=== PATIENT | female | born 1950 | race Caucasian/White ===

== ENCOUNTER 2023-08-29 08:41 | Outpatient (OUT) | payer MEDICARE, SELFPAY ==
--- NOTE | 2023-08-29 08:49 | MM_ITS ---
Patient Name VIRY BAILEY MR# Age Sex Date Time [id number] F 08/29/2023 08:55 At the Request Of DR Jesse Still . RADIOLOGY REPORT PROCEDURE: MM TOMOSYNTHESIS SCREENING BI COMPARISON: MG MAMM SCREEN 3D [facility] CAD, 08/10/2021. MG MAMM SCREEN [facility] W CAD, 09/10/2019. MG MAMM SCREEN [facility] W CAD, 08/26/2018. MG MAMM [facility] SCRN W CAD DIG, 07/20/2014. INDICATIONS: Screening Calculator Name NCI Breast Cancer Risk Assessment Tool 5 Year Breast Cancer Risk 2.10% Lifetime Breast Cancer Risk 6.20% Personal Breast Cancer No Personal Ovarian Cancer No Treatments None Family Cancers None LOCATION: [facility] BREAST COMPOSITION: Scattered areas fibroglandular density. FINDINGS: DIAGNOSTIC CATEGORY 2--BENIGN FINDING: RIGHT BREAST: No significant suspicious finding. Scattered benign-appearing calcifications are present. No significant change has occurred. LEFT BREAST: No significant suspicious finding. Scattered benign-appearing calcifications are present. Scattered benign-appearing nodules are present. No significant change has occurred. RECOMMENDATIONS: ROUTINE MAMMOGRAM AND CLINICAL EVALUATION IN 12 MONTHS. PLEASE NOTE: A NORMAL MAMMOGRAM DOES NOT EXCLUDE THE POSSIBILITY OF BREAST CANCER. A CLINICALLY SUSPICIOUS PALPABLE LUMP SHOULD BE BIOPSIED. Dictated by: Micha Dye M.D. on 08/29/2023 at 12:36 Approved by: Micha Dye M.D. on 08/29/2023 at 12:40
== END 2023-08-29 08:42 | disposition home or self-care (01) ==
LOC: MAMMO 08:41
PROVIDERS: PCP Family Medicine; Visit Provider Family Medicine
DX: Z12.31 Encounter for screening mammogram for malignant neoplasm of breast (principal)
CPT/HCPCS: 77063; 77067

== ENCOUNTER 2024-02-27 08:54 | Outpatient (OUT) | payer MEDICARE, SELFPAY ==
--- OUTSIDE RECORDS SUMMARY | 2024-02-27 09:14 | XMS_ITS | CCD ---
Author Organization [facility] Care Team Providers Care Dress Marker Name Role Phone Jesse Deluca Primary Care Provider [phone] JESSE DELUCA Referring Unavailabl e NADERER, JESSE NURONY Primary Care Unavailabl e NADERER, JESSE TRAN Referring Unavailabl e NADERER, JESSE NURONY Primary Care Unavailabl e NADERER, JESSE NURONY Referring Unavailabl e NADERER, JESSE MARC Primary Care Unavailabl e NADERER, JESSE NURONY Referring Unavailabl e NADERER, JESSE MARC Primary Care Unavailabl e NADERER, JESSE NURONY Referring Unavailabl e NADERER, JESSE MARC Primary Care Unavailabl e NADERER, JESSE NURONY Referring Unavailabl e NADERER, JESSE MARC Primary Care Unavailabl e NADERER, JESSE NURONY Referring Unavailabl e NADERER, JESSE MARC Primary Care Unavailabl e NADERER, JESSE NURONY Referring Unavailabl e NADERER, JESSE MARC Primary Care Unavailabl e NADERER, JESSE NURONY Referring Unavailabl e NADERER, JESSE MARC Primary Care Unavailabl e NADERER, JESSE NURONY Referring Unavailabl e NADERER, JESSE MARC Primary Care Unavailabl e NADERER, JESSE NURONY Referring Unavailabl e NADERER, JESSE MARC Primary Care Unavailabl e Woody, Marla Unavailable MD Jesse Deluac Primary Care Provider MD Aki Garcia Attending Provider Aki Garcia Unavailable MD Jesse Deluca Attending Provider MD Jesse Deluca Primary Care Provider MD Aki Garcia Attending Provider MD Jesse Deluca Attending Provider [phone] MD Aki Garcia Admit Provider YOSI, DR JESSE Roland Consulting Unavailable NADERER, DR JESSE Roland Primary Care Unavailable NADERER, DR JESSE Roland Admitting Unavailable NADERER, DR JESSE Roland Attending Unavailable NADERER, DR JESSE Roland Primary Care Unavailable NADERER, DR JESSE Roland Admitting Unavailable NADERER, DR JESSE Roland Attending Unavailable NADEREMiguel, DR JESSE Roland Consulting Unavailable MD Jesse Deluca Primary Care Provider MD Aki Garcia Attending Provider [phone] MD Aki Garcia Admit Provider MD Jesse Deluca Primary Care Provider [phone] MD Aki Garcia Attending Provider MD Aki Garcia Admit Provider MD Jesse Deluca Primary Care Provider MD Aki Garcia Attending Provider [phone] Jesse Deluca Primary Care Unavailable Aki Garcia Admitting Unavailable Aki Garcia Attending Unavailable Aki Garcia Admitting Unavailable Aki Garcia Attending Unavailable Jesse Deluca Primary Care Unavailable Aki Garcia Admitting Unavailable Aki Garcia Attending Unavailable Jesse Deluca Primary Care Unavailable Aki Garcia Attending Unavailable Aki Garcia Admitting Unavailable Jesse Deluca Primary Care Unavailable MD Jsese Deluca Primary Care Provider MD Aki Garcia Attending Provider [phone] JESSE DELUCA Attending Unavailable Medications Current Medications Medication Drug Class(es) Dates Sig (Normalized) Sig (Original) 8 hr acetaminophen 650 mg extended release oral tablet (8 sources) Start: 07-31-2022 take 1300 mg by mouth once daily in the morning Acetaminophen Active 1300 MG PO Every morning July 31, 2022 12:00am Start: 07-31-2022 Acetaminophen (Tylenol Arthritis) 650 mg Tablet Extended Release Active 1300 MG PO Every morning July 30, 2022 11:00pm [id number] 200 actuat albuterol 0.09 mg/actuat metered dose inhaler (4 sources) beta2-Adrenergic Agonist Start: 01-23-2022 take 2 puff(s) by inhalation every four to six hours as needed Albuterol Sulfate HFA 108 (90 Base) MCG/ACT 2 puffs as needed Inhalation every 4-6 hours for 14 days Jan, Active Start: 01-23-2022 take 2 puff(s) by in halation every four to six hours as needed Albuterol Sulfate HFA 108 (90 Base) MCG/ACT 2 puffs as needed Inhalation every 4-6 hours for 14 days Jan, Active atorvastatin 80 mg oral tablet (16 sources) HMG-CoA Reductase Inhibitor Start: 07-31-2022 take 80 mg by mouth once daily in the evening Atorvastatin Active 80 MG PO Every evening July 31, 2022 12:00am cholecalciferol 0.025 mg chewable tablet (1 source) Vitamin D Start: 01-17-2024 take 1 tablet by mouth once daily Cholecalciferol (Vitamin D3) (Vitamin D3) 25 mcg (1,000 unit) tablet,chewable Active 25 MCG PO Daily January 17, 2024 12:00am dextromethorphan hydrobromide 1.5 mg/ml / pyrilamine maleate 1.5 mg/ml oral solution (4 sources) Uncompetitive M-fvycpz-D-asparta te Receptor Antagonist, Sigma-1 Agonist Start: 01-23-2022 take 10 mL by mouth every eight hours Wood DM 7.5-7.5 MG/5ML 10 mL Orally every 8 hours for 5 days Jan, Active diphenhydrAMINE hydrochloride 25 mg oral capsule (10 sources) Histamine-1 Receptor Antagonist Start: 12-12-2022 take 1 capsule by mouth every twenty-four hours diphenhydrAMINE HCl 25 MG 1 capsule at bedtime as needed Orally Once a day for 30 day(s) Nov, Active Start: 12-12-2022 End: 01-17-2024 take 25 mg by mouth once daily in the morning Diphenhydramine Hcl Discontinued 25 MG PO Every morning December 12, 2022 1:00am January 17, 2024 10:33am lisinopril 10 mg oral tablet (10 sources) Angiotensin Converting Enzyme Inhibitor Start: 12-12-2022 take 10 mg by mouth once daily in the morning Lisinopril Active 10 MG PO Every morning December 12, 2022 1:00am take 0.5 tablet by mouth once da caio Lisinopril 20 MG TAKE 1/2 TABLET BY MOUTH ONCE DAILY Oral for 30 Days Active melatonin 10 mg oral capsule (12 sources) Start: 12-12-2022 Melatonin 10 M G as directed Orally Nov, Active Start: 12-12-2022 Melatonin 10 M G as directed Orally Nov, Active Start: 07-31-2022 take 10 mg by mouth at bedtime Melatonin Active 10 MG PO Bedtime July 31, 2022 12:00am meloxicam 7.5 mg oral tablet (13 sources) Nonsteroidal Anti-inflammatory Drug Start: 01-17-2024 Meloxicam Active 7.5 MG PO January 17, 2024 12:00am Start: 01-21-2015 End: 12-12-2022 take 7.5 mg by mouth once daily Meloxicam Discontinued 7.5 MG PO Daily July 31, 2022 12:00am December 12, 2022 2:45pm methylPREDNISolone 4 mg oral tablet (4 sources) Corticosteroid Start: 01-23-2022 methylPREDNISo lone 4 MG as directed Orally for daily dose take half with breakfast, half with dinner for 6 days Jan, Active Multivitamin preparation (12 sources) Start: 12-12-2022 Multivitamin 2 1 Nov, 2022 Active Start: 07-31-2022 take 1 tablet by fannie th once daily Multivitamin Active 1 TAB PO Daily July 31, 2022 12:00am Start: 07-31-2022 take 1 tablet by fannie th once daily Multivitamin Active 1 TAB PO Daily July 30, 2022 11:00pm naproxen sodium 220 mg oral tablet (4 sources) Nonsteroidal Anti-inflammatory Drug take 1 tablet by mouth every twelve hours Aleve 220 MG 1 tablet Orally bid Active omeprazole 40 mg delayed release oral capsule (16 sources) Proton Pump Inhibitor Start: 07-31-20 take 40 mg by mouth once daily Omeprazole Active 40 MG PO Daily July 31, 2022 12:00am take 1 capsule by mouth once cory ly Omeprazole 20 MG TAKE ONE CAPSULE BY MOUTH EVERY DAY Oral for 90 Active Vitamin D3 Gummy (6 sources) Start: 12-12-2022 take 2000 [IU] by mo [facility] once daily Vitamin D3 Gummy Active 2000 UNITS PO Daily December 12, 2022 1:00am Start: 12-12-2022 take 2000 [IU] by mo [facility] once daily Vitamin D3 Gummy Active 2000 UNITS PO Daily December 12, 2022 12:00am Completed/Discontinued Medications Medication Drug Class(es) Dates Sig (Normalized) Sig (Original) aspirin 81 mg chewable tablet (12 sources) Platelet Aggregation Inhibitor, Nonsteroidal Anti-inflammatory Drug Start: 07-31-2022 End: 12-12-2022 take 81 mg by mouth once daily Aspirin Discontinued 81 MG PO Daily July 31, 2022 12:00am December 12, 2022 2:43pm take 1 tablet by fannie every twenty-four hours Aspirin Adult Low Strength 81 MG 1 tablet Orally Once a day Active Calcium Carbonate / vitamin D3 (8 sources) Start: 07-31-2022 End: 12-12-2022 take 1 tablet by mouth once daily Calcium Carbonate-Vitamin D3 Discontinued 1 TAB PO Daily July 31, 2022 12:00am December 12, 2022 2:46pm Start: 07-31-2022 End: 12-12-2022 take 1 tablet by mouth once daily Calcium Carbonate-Vitamin D3 Discontinued 1 TAB PO Daily July 30, 2022 11:00pm December 12, 2022 1:46pm Start: 07-31-2022 take 1 tablet by fannie once daily Calcium Carbonate-Vitamin D3 Active 1 TAB PO Daily July 30, 2022 11:00pm Elderberry Fruit And Flower (8 sources) Start: 07-31-2022 End: 12-12-2022 take 2 capsules by mouth once daily Elderberry Fruit And Flower Discontinued 2 CAP PO Daily July 31, 2022 12:00am December 12, 2022 2:46pm Start: 07-31-2022 End: 12-12-2022 take 2 capsules by mouth once daily Elderberry Fruit And Flower Discontinued 2 CAP PO Daily July 30, 2022 11:00pm December 12, 2022 1:46pm Start: 07-31-2022 take 2 capsules by out once daily Elderberry Fruit And Flower Active 2 CAP PO Daily July 30, 2022 11:00pm hydroCHLOROthiazide 25 mg oral tablet (12 sources) Thiazide Diuretic Start: 07-31-2022 End: 12-12-2022 take 12.5 mg by mouth once daily Hydrochlorothiazide Discontinued 12.5 MG PO Daily July 31, 2022 12:00am December 12, 2022 2:46pm take 1 tablet by mouth once chaparrita y hydroCHLOROthiazide 12.5 MG take 1 tablet by mouth once daily Oral for 90 Active ibuprofen 200 mg oral capsule (8 sources) Nonsteroidal Anti-inflammatory Drug Start: 07-31-2022 End: 12-12-2022 Ibuprofen (Motrin Ib) 200 mg Capsule Discontinued 400 MG PO Every evening July 31, 2022 12:00am December 12, 2022 2:45pm loratadine 10 mg oral tablet (12 sources) Start: 07-31-2022 End: 12-12-2022 take 1 tablet by mouth once daily Loratadine (Claritin) 10 mg Tablet Discontinued 10 MG PO Daily July 31, 2022 12:00am December 12, 2022 2:46pm metFORMIN hydrochloride 500 mg oral tablet (8 sources) Biguanide metFORMIN HCl 50 0 MG Oral *please review for potential _update for e-prescription and drug interaction check* Not-Taking oxyCODONE hydrochloride 5 mg oral tablet (5 sources) Opioid Agonist Start: 12-26-2022 End: 01-17-2024 take 5-10 mg by mouth every six hours Oxycodone Discontinued 5 - 10 MG PO Q6H 40 8 December 26, 2022 January 17, 2024 10:34am Prednisone (5 sources) Start: 12-26-2022 End: 01-17-2024 Prednisone Discontinued 1 dose pk PO per package directions December 26, 2022 1:00am January 17, 2024 10:34am take 4 tabs for 3 days then take 3 tabs for 3 days then take 2 tabs for 3 days then take 1 tab for 3 days Start: 12-26-2022 Prednisone Act kareem 1 dose pk PO per package directions December 26, 2022 1:00am take 4 tabs for 3 days then take 3 tabs for 3 days then take 2 tabs for 3 days then take 1 tab for 3 days Start: 12-26-2022 Prednisone Act kareem 1 dose pk PO per package directions December 26, 2022 12:00am take 4 tabs for 3 days then take 3 tabs for 3 days then take 2 tabs for 3 days then take 1 tab for 3 days sulfamethoxazole 800 mg / trimethoprim 160 mg oral tablet (5 sources) Dihydrofolate Reductase Inhibitor Antibacterial, Sulfonamide Antimicrobial Start: 12-26-2022 End: 01-17-2024 take 1 tablet by mouth every twelve hours Sulfamethoxazole-Trimethoprim (Bactrim Ds) 800-160 mg tablet Discontinued 1 TAB PO Q12H December 26, 2022 1:00am January 17, 2024 10:34am tiZANidine 4 mg oral capsule (5 sources) Central alpha-2 Adrenergic Agonist Start: 12-26-2022 End: 01-17-2024 take 1 capsule by mouth every eight hours Tizanidine (Zanaflex) 4 mg capsule Discontinued 4 MG PO Q8H 40 December 26, 2022 1:00am January 17, 2024 10:34am Problems Active Problems Problem Classification Problem Date Documented Da te Episodic/Chronic Diabetes mellitus without complication (1 source) Prediabetes; Translations: [PREDIABETES] Onset: 08-05-2022 Episodic Disorders of lipid metabolism (1 source) Hyperlipidemia, unspecified; Translations: [HYPERLIPIDEMIA UNSPECIFIED] Onset: 08-05-2022 Chronic Essential hypertension (4 sources) Essential (primary) hypertension; Translations: [ESSENTIAL PRIMARY HYPERTENSION] Onset: 08-02-2022 Chronic Fluid and electrolyte disorders (4 sources) Hypokalemia; Translations: [HYPOKALEMIA] Onset: 09-18-2022 Episodic Other acquired deformities (13 sources) Lumbar spondylolisthesis; Translations: [Spondylolisthesis, lumbar region] 12-26-2022 Episodic Other acquired deformities (6 sources) Spondylolisthesis, lumbar region; Translations: [Acquired spondylolisthesis] Onset: 07-06-2022 Resolved: 07-06-2022 Episodic Other aftercare (1 source) 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; Translations: [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] Onset: 08-05-2022 Episodic Other and unspecified benign neoplasm (8 sources) Neoplasm of meninges; 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, unspecified] Chronic Other and unspecified benign neoplasm (1 source) Benign neoplasm of meninges, unspecified Onset: 06-29-2022 Resolved: 06-29-2022 Chronic Other connective tissue disease (1 source) Arthrodesis status Episodic Other nutritional; endocrine; and metabolic disorders (1 source) Obesity, unspecified; Translations: [OBESITY UNSPECIFIED] Onset: 08-05-2022 Chronic Residual codes; unclassified (2 sources) Asymptomatic menopausal state Onset: 07-06-2022 Resolved: 07-06-2022 Episodic Spondylosis; intervertebral disc disorders; other back problems (6 sources) Spinal stenosis, lumbar region with neurogenic claudication; Translations: [Radiculopathy, lumbar region] Onset: 07-06-2022 Resolved: 07-06-2022 Episodic Unclassified (1 source) Spondylolisthesis, lumbar region; Translations: [Spondylolisthesis, lumbar region] Onset: 01-07-2024 Unclassified (1 source) Spinal stenosis, lumbar region with neurogenic claudication; Translations: [Spinal stenosis, lumbar region with neurogenic claudication] Onset: 08-08-2023 Past or Other Problems Problem Classification Problem Date Documented Da te Episodic/Chronic Acute bronchitis (1 source) Acute bronchitis due to other specified organisms Onset: 01-23-2022 Resolved: 01-23-2022 Episodic Immunizations and screening for infectious disease (1 source) Contact with and (suspected) exposure to other viral communicable diseases Onset: 01-23-2022 Resolved: 01-23-2022 Episodic Results Test Name Value Interpretation Reference Range Facility XR lumbar spine AP/LAT/FLX/E XTon 01-07-2024 XR lumbar spine AP/LAT/FLX/EXT [facility] [place] [address] XRay Report Signed Patient: Rima Alves MR#: [id number] 3802 : 1950 Acct:[id number] Age/Sex: 73 / F ADM Date: 01/07/24 Loc: XD Room: Type: [facility] Attending Dr: Aki Garcia MD Copies to: Aki Garcia MD Ordering Provider: Aki Garcia MD Date of Service: 01/07/24 XR/XR lumbar spine AP/LAT/FLX/EXT: M43.16 - Spondylolisthesis, lumbar region XR lumbar spine AP/LAT/FLX/EXT 01/07/2024 10:39 AM SIGNS AND SYMPTOMS: Follow-up lobectomy fusion, pain radiating to right leg PROTOCOLS: Frontal and lateral radiograph the lumbar spine were obtained including flexion and extension views. COMPARISON: 08/08/2023 FINDINGS: There is a levoconvex curvature of the thoracolumbar spine. There is 5 mm of retrolisthesis of L2 upon L3. There is posterior fusion and decompression from L3 through L5. There is no hardware complication. There is mild vertebral disc height loss in the thoracic and upper lumbar spine with accompanying anterior osteophyte formation. Degenerative changes are noted in the sacroiliac joints. Degenerative changes are noted in the hips. There is evidence of prior cholecystectomy. Atherosclerotic changes are noted in the abdominal aorta. XR/XR lumbar spine AP/LAT/FLX/EXT IMPRESSION: Unchanged posterior fusion hardware from L3 through L5. There is a levoconvex curvature of the thoracolumbar spine. There is 5 mm of retrolisthesis of L2 upon L3. Degenerative changes are redemonstrated throughout the visualized thoracolumbar spine, hips, and sacroiliac joints, as described above. Impression dictated by: Sandoval Church M.D.01/07/2024 2:58 PM Dictation Location: [place] [address] Transcribed By: [facility] 01/07/24 1458 Dictated By: Sandoval Church II, MD 01/07/24 1456 Signed By: 01/07/24 1458 Normal [facility] XR lumbar spine 2-3V*on 07-22 XR lumbar spine 2-3V* [facility] [place] [address] [place] [address] XRay Report Signed Patient: Rima Alves MR#: [id number] 3802 : 1950 Acct:[id number] Age/Sex: 72 / F ADM Date: 08/08/23 Loc: XD Room: Type: [facility] Attending Dr: Aki Garcia MD Copies to: Aki Garcia MD Ordering Provider: Aki Garcia MD Date of Service: 08/08/23 XR/XR lumbar spine 2-3V*: M48.062 LUMBAR SPINE - 2 views CLINICAL DATA: Follow-up after lumbar fusion COMPARISON: 05/09/2023 AP and lateral standing views were obtained. There is osteopenia. There is subtle S-shaped thoracolumbar scoliotic curvature. Patient is status post laminectomy and fusion with posterior rods, pedicle screws and interbody fusion devices extending from L3 through L5. The hardware appears intact and unchanged from the prior. No acute compression fractures are identified. There is still slight retrolisthesis of L1 on L2 and L2 on L3. There is also minor anterolisthesis of L4 and L5. This spaces are unchanged. Endplate spurring and facet disease are again seen. The SI joints are intact. There is atherosclerotic plaque at the aorta. XR/XR lumbar spine 2-3V* IMPRESSION: OSTEOPENIA, SCOLIOSIS, POSTOPERATIVE AND DEGENERATIVE CHANGES SIMILAR TO THE COMPARISON EXAM. Impression dictated by: Gillian Phelps M.D.08/08/2023 1:57 PM Dictation Location: [place] [address] Transcribed By: [facility] 08/08/23 1357 Dictated By: Gillian Phelps MD 08/08/23 1354 Signed By: 08/08/23 1357 [facility] XR lumbar spine AP/LAT/FLX/E XTon 05-09-2023 XR lumbar spine AP/LAT/FLX/EXT [facility] [place] [address] XRay Report Signed Patient: Rima Alvse MR#: [id number] 3802 : 1950 Acct:[id number] Age/Sex: 72 / F ADM Date: 05/09/23 Loc: XD Room: Type: [facility] Attending Dr: Aki Garcia MD Copies to: Aki Garcia MD Ordering Provider: Aki Garcia MD Date of Service: 05/09/23 XR/XR lumbar spine AP/LAT/FLX/EXT: M43.16 XR lumbar spine AP/LAT/FLX/EXT 05/09/2023 10:07 AM SIGNS AND SYMPTOMS: Follow-up posterior fusion PROTOCOLS: Frontal, lateral, and flexion-extension views of the lumbar spine COMPARISON: 02/08/2023 FINDINGS: There is a levoconvex curvature of the thoracolumbar spine. There is mild multilevel disc height loss. There is posterior fusion with intervertebral fusion body at L3-L4 and L4-5. No hardware complication or malalignment. No pathologic movement on flexion or extension. The sacrum and sacroiliac joints are normal. Atherosclerotic changes are noted in the abdominal aorta. Surgical clips are present in the right upper quadrant. XR/XR lumbar spine AP/LAT/FLX/EXT IMPRESSION: Unchanged posterior fusion L3-L5. Mild multilevel degenerative changes redemonstrated similar to the prior exam with a mild levoconvex curvature. Impression dictated by: Sandoval Church M.D.05/09/2023 2:02 PM Dictation Location: [facility]--07 Transcribed By: [facility] 05/09/23 140 Dictated By: Sandoval Church II, MD 05/09/23 1359 Signed By: 05/09/23 140 [facility] XR lumbar spine AP/LAT/FLX/E XTon 02-08-2023 XR lumbar spine AP/LAT/FLX/EXT [facility] [place] [address] [place] [address] XRay Report Signed Patient: Rima Alves MR#: [id number] 3802 : 1950 Acct:[id number] Age/Sex: 72 / F ADM Date: 02/08/23 Loc: XD Room: Type: [facility] Attending Dr: Aki Garcia MD Copies to: Aki Garcia MD Ordering Provider: Aki Garcia MD Date of Service: 02/08/23 XR/XR lumbar spine AP/LAT/FLX/EXT: M43.16 LUMBAR SPINE - 4 views CLINICAL HISTORY: Follow-up lumbar surgery. COMPARISON: Intraoperative study 12/25/2022 FINDINGS: Posterior hardware fixation L3-L5 without radiographic complication. No pathological motion on flexion or extension views. XR/XR lumbar spine AP/LAT/FLX/EXT IMPRESSION: NO EVIDENCE OF HARDWARE COMPLICATION. Impression dictated by: Carmelo Martin Jr., D.OEnzo02/08/2023 3:40 PM Dictation Location: [facility]-14 Transcribed By: [facility] 02/08/23 1540 Dictated By: Carmelo Martin Jr, DO 02/08/23 1539 Signed By: 02/08/23 1540 Normal [facility] Potassium [Moles/volume] in Serum or PlasmaOrdered By: Lester Yoder on 12-25-2022 Potassium [Moles/Vol] 3.6 mmol/L 3.5-5.1 [facility] Basophils Auto (Bld) [#/Vol] Ordered By: Aki Garcia on 12-12-2022 Basophils (Bld) [#/Vol] 0.1 10*3/uL 0.0-0.2 [facility] Basophils/100 WBC Auto (Bld) Ordered By: Aki Garcia on 12-12-2022 Basophils/100 WBC (Bld) 0.8 % . [facility] Creatinine and Glomerular fi ltration rate.predicted panel (S/P/Bld)Ordered By: Aki Garcia on 12-12-2022 Creatinine [Mass/Vol] 0.82 mg/dL 0.44-1.03 [facility] Eosinophils Auto (Bld) [#/Vo l]Ordered By: Aki Garcia on 12-12-2022 Eosinophils (Bld) [#/Vol] 0.1 10*3/uL 0.0-0.45 [facility] Eosinophils/100 WBC Auto (Bl d)Ordered By: Aki Garcia on 12-12-2022 Eosinophils/100 WBC (Bld) 1.9 % . [facility] Erythrocyte distribution wid th Auto (RBC) [Ratio]Ordered By: Aki Garcia on 12-12-2022 Erythrocyte distribution width (RBC) [Ratio] 12.6 % 11.9-15.3 [facility] Estimated glomerular filtrat ion rate (GFR) non- AmericanOrdered By: Aki Garcia on 12-12-2022 GFR/1.73 sq M.predicted among non-blacks MDRD (S/P/Bld) [Vol rate/Area] > 60 mL/Min [facility] Hematocrit Auto (Bld) [Volum e fraction]Ordered By: Aki Garcia on 12-12-2022 Hematocrit (Bld) [Volume fraction] 37.8 % 34.0-46.4 [facility] Hemoglobin [Mass/volume] in BloodOrdered By: Aki Garcia on 12-12-2022 Hemoglobin (Bld) [Mass/Vol] 12.5 g/dL 11.8-15.4 [facility] Leukocytes [#/volume] correc amy for nucleated erythrocytes in Blood by Automated counOrdered By: Aki Garcia on 12-12-2022 WBC corrected for nucl RBC Auto (Bld) [#/Vol] 6.4 10*3/uL 3.8-11.6 [facility] Lymphocytes Auto (Bld) [#/Vo l]Ordered By: Aki Garcia on 12-12-2022 Lymphocytes (Bld) [#/Vol] 1.9 10*3/uL 1.00-4.8 [facility] Lymphocytes/100 WBC Auto (Bl d)Ordered By: Aki Garcia on 12-12-2022 Lymphocytes/100 WBC (Bld) 30.3 % . [facility] MCH Auto (RBC) [Entitic mass ]Ordered By: Aki Garcia on 12-12-2022 MCH (RBC) [Entitic mass] 30.3 pg 24.7-34.3 [facility] MCHC Auto (RBC) [Mass/Vol]Or dered By: Aki Garcia on 12-12-2022 MCHC (RBC) [Mass/Vol] 33.0 g/dL 32.0-35.0 [facility] MCV Auto (RBC) [Entitic vol] Ordered By: Aki Garcia on 12-12-2022 MCV (RBC) [Entitic vol] 92.1 fL 80-100 [facility] Monocytes Auto (Bld) [#/Vol] Ordered By: Aki Garcia on 12-12-2022 Monocytes (Bld) [#/Vol] 0.5 10*3/uL 0.0-0.8 [facility] Monocytes/100 WBC Auto (Bld) Ordered By: Aki Garcia on 12-12-2022 Monocytes/100 WBC (Bld) 7.3 % . [facility] Neutrophils Auto (Bld) [#/Vo l]Ordered By: Aki Garcia on 12-12-2022 Neutrophils (Bld) [#/Vol] 3.8 10*3/uL 1.8-7.7 [facility] Neutrophils/100 WBC Auto (Bl d)Ordered By: Aki Garcia on 12-12-2022 Neutrophils/100 WBC (Bld) 59.7 % . [facility] No Panel InformationOrdered By: Aki Garcia on 12-12-2022 Estimated GFR () > 60 mL/Min [facility] Comment on above: GFR estimated refere nce range: According to KDOQI guidelines, <60 ml/min/1.73m2 is sufficient to diagnose a patient with chronic kidney disease. Pharmacy Creatinine Clearance (Chem N/A [facility] Nucleated erythrocytes [Pres ence] in Blood by Automated countOrdered By: Aki Garcia on 12-12-2022 Nucleated RBC Auto Ql (Bld) 0.2 /100{WBC} 0-0.5 [facility] Platelet mean volume Auto (B ld) [Entitic vol]Ordered By: Aki Garcia on 12-12-2022 Platelet mean volume (Bld) [Entitic vol] 9.1 fL 6.3-10.7 [facility] Platelets Auto (Bld) [#/Vol] Ordered By: Aki Garcia on 12-12-2022 Platelets (Bld) [#/Vol] 255 10*3/uL 150-450 [facility] RBC Auto (Bld) [#/Vol]Ordere d By: Aki Garcia on 12-12-2022 RBC (Bld) [#/Vol] 4.10 10*6/uL 3.60-5.00 [facility] Serum or plasma anion gap de terminationOrdered By: Aki Garcia on 12-12-2022 Anion gap [Moles/Vol] 11.5 mmol/L 6.0-15.0 [facility] Serum or plasma calcium maxim urement (mass/volume)Ordered By: Aki Garcia on 12-12-2022 Calcium [Mass/Vol] 9.7 mg/dL 8.2-10.2 [facility] Serum or plasma chloride kg surement (moles/volume)Ordered By: Aki Garcia on 12-12-2022 Chloride [Moles/Vol] 100 mmol/L 95-114 [facility] Serum or plasma glucose maxim urement (mass/volume)Ordered By: Aki Garcia on 12-12-2022 Glucose [Mass/Vol] 89 mg/dL 70-100 [facility] Comment on above: ADA recommended refe rence rangeRandom Glucose Reference Range is dependent on time and content of last meal. Glucose of more than 200 mg/dL in a nonstressed, ambulatory subject supports the diagnosis of Diabetes Mellitus. Serum or plasma potassium me asurement (moles/volume)Ordered By: Aki Garcia on 12-12-2022 Potassium [Moles/Vol] 4.2 mmol/L 3.5-5.1 [facility] Serum or plasma sodium measu rement (moles/volume)Ordered By: Aki Garcia on 12-12-2022 Sodium [Moles/Vol] 137 mmol/L 136-146 [facility] Serum or plasma total carbon dioxide measurement (moles/volume)Ordered By: Aki Garcia on 12-12-2022 CO2 [Moles/Vol] 29.7 mmol/L 22.0-30.0 [facility] Serum or plasma urea nitroge n measurement (mass/volume)Ordered By: Aki Garcia on 12-12-2022 Urea nitrogen [Mass/Vol] 7 mg/dL 9-23 [facility] WBC Auto (Bld) [#/Vol]Ordere d By: Aki Garcia on 12-12-2022 WBC (Bld) [#/Vol] 6.4 10*3/uL 3.8-11.6 [facility] PROF CHEM 8 (BAS METB)on Anion gap [Moles/Vol] 9.9 mmol/L Normal [facility] Comment on above: Performed By: #### B MP #### [facility] [address] [address] [address] Vianey Headley Calcium [Mass/Vol] 9.4 mg/dL Normal 8.5-10.1 [facility] Comment on above: Performed By: #### B MP #### [facility] [address] [address] [address] Vianey Headley Chloride [Moles/Vol] 101 mmol/L Normal 98-107 [facility] Comment on above: Performed By: #### B MP #### [facility] [address] [address] [address] Vianey Headley CO2 [Moles/Vol] 33.1 mmol/L Critically high 21.0-32.0 [facility] Comment on above: Performed By: #### B MP #### [facility] [address] [address] [address] Vianey Headley Creatinine [Mass/Vol] 0.89 mg/dL Normal 0.55-1.02 [facility] Comment on above: Performed By: #### B MP #### [facility] [address] [address] [address] Vianey Headley EGFR-AF TONGAN >60 Normal >=60 [facility] Comment on above: Performed By: #### B MP #### [facility] [address] [address] [address] Vianey Headley EGFR-NON AF TONGAN >60 Normal >=60 [facility] Comment on above: Performed By: #### B MP #### [facility] [address] [address] [address] Vianey Headley Glucose [Mass/Vol] 88 mg/dL Normal 74-106 [facility] Comment on above: Performed By: #### B MP #### [facility] [address] [place] [address] Dr. Vianey Headley Potassium [Moles/Vol] 4.0 mmol/L Normal 3.5-5.1 [facility] Comment on above: Performed By: #### B MP #### [facility] [address] [address] [address] Vianey Headley Sodium [Moles/Vol] 140 mmol/L Normal 136-145 [facility] Comment on above: Performed By: #### B MP #### [facility] [address] [address] [address] Vianey Headley Urea nitrogen [Mass/Vol] 10.0 mg/dL Normal 7.0-18.0 [facility] Comment on above: Performed By: #### B MP #### [facility] [address] [address] [address] Vianey Headley Urea nitrogen/Creatinine [Mass ratio] 11.2 mg/mg Normal [facility] Comment on above: Performed By: #### B MP #### [facility] [address] [place], [place] [address] Dr. Vianey Headley Basophils Auto (Bld) [#/Vol] Ordered By: Valerio Charles on 09-06-2022 Basophils (Bld) [#/Vol] 0.0 10*3/uL 0.0-0.2 [facility] Basophils/100 WBC Auto (Bld) Ordered By: Valerio Charles on 09-06-2022 Basophils/100 WBC (Bld) 0.9 % . [facility] Creatinine and Glomerular fi ltration rate.predicted panel (S/P/Bld)Ordered By: Valerio Charles on 09-06-2022 Creatinine [Mass/Vol] 1.02 mg/dL 0.44-1.03 [facility] Eosinophils Auto (Bld) [#/Vo l]Ordered By: Valerio Charles on 09-06-2022 Eosinophils (Bld) [#/Vol] 0.1 10*3/uL 0.0-0.45 [facility] Eosinophils/100 WBC Auto (Bl d)Ordered By: Valerio Charles on 09-06-2022 Eosinophils/100 WBC (Bld) 2.0 % . [facility] Erythrocyte distribution wid th Auto (RBC) [Ratio]Ordered By: Valerio Charles on 09-06-2022 Erythrocyte distribution width (RBC) [Ratio] 12.5 % 11.9-15.3 [facility] Estimated glomerular filtrat ion rate (GFR) non- AmericanOrdered By: Valerio Charles on 09-06-2022 GFR/1.73 sq M.predicted among non-blacks MDRD (S/P/Bld) [Vol rate/Area] 54 mL/Min [facility] Hematocrit Auto (Bld) [Volum e fraction]Ordered By: Valerio Charles on 09-06-2022 Hematocrit (Bld) [Volume fraction] 35.8 % 34.0-46.4 [facility] Hemoglobin [Mass/volume] in BloodOrdered By: Valerio Charles on 09-06-2022 Hemoglobin (Bld) [Mass/Vol] 12.0 g/dL 11.8-15.4 [facility] Laboratory - Hematology and Cell countsOrdered By: Valerio Charles on 09-06-2022 Nucleated RBC/100 WBC (Bld) [Ratio] 0.0 % 0-0.5 [facility] Leukocytes [#/volume] in Blo od by Automated countOrdered By: Valerio Charles on 09-06-2022 WBC (Bld) [#/Vol] 5.0 10*3/uL 4.5-11.0 [facility] Lymphocytes Auto (Bld) [#/Vo l]Ordered By: Valerio Charles on 09-06-2022 Lymphocytes (Bld) [#/Vol] 1.4 10*3/uL 1.00-4.8 [facility] Lymphocytes/100 WBC Auto (Bl d)Ordered By: Valerio Charles on 09-06-2022 Lymphocytes/100 WBC (Bld) 28.7 % . [facility] MCH Auto (RBC) [Entitic mass ]Ordered By: Valerio Charles on 09-06-2022 MCH (RBC) [Entitic mass] 31.3 pg 24.7-34.3 [facility] MCHC Auto (RBC) [Mass/Vol]Or dered By: Valerio Charles on 09-06-2022 MCHC (RBC) [Mass/Vol] 33.4 g/dL 32.0-35.0 [facility] MCV Auto (RBC) [Entitic vol] Ordered By: Valerio Charles on 09-06-2022 MCV (RBC) [Entitic vol] 93.6 fL 80-100 [facility] Monocytes Auto (Bld) [#/Vol] Ordered By: Valerio Charles on 09-06-2022 Monocytes (Bld) [#/Vol] 0.5 10*3/uL 0.0-0.8 [facility] Monocytes/100 WBC Auto (Bld) Ordered By: Valerio Charles on 09-06-2022 Monocytes/100 WBC (Bld) 9.4 % . [facility] Neutrophils Auto (Bld) [#/Vo l]Ordered By: Valerio Charles on 09-06-2022 Neutrophils (Bld) [#/Vol] 3.0 10*3/uL 1.8-7.7 [facility] Neutrophils/100 WBC Auto (Bl d)Ordered By: Valerio Charles on 09-06-2022 Neutrophils/100 WBC (Bld) 59.0 % . [facility] No Panel InformationOrdered By: Valerio Charles on 09-06-2022 Estimated GFR () > 60 mL/Min [facility] Comment on above: GFR estimated refere nce range: According to KDOQI guidelines, <60 ml/min/1.73m2 is sufficient to diagnose a patient with chronic kidney disease. Pharmacy Creatinine Clearance (Chem 45.44 [facility] Platelet mean volume Auto (B ld) [Entitic vol]Ordered By: Valerio Charles on 09-06-2022 Platelet mean volume (Bld) [Entitic vol] 9.7 fL 6.3-10.7 [facility] Platelets Auto (Bld) [#/Vol] Ordered By: Valerio Charles on 09-06-2022 Platelets (Bld) [#/Vol] 253 10*3/uL 150-450 [facility] RBC Auto (Bld) [#/Vol]Ordere d By: Valerio Charles on 09-06-2022 RBC (Bld) [#/Vol] 3.83 10*6/uL 3.60-5.00 [facility] Serum or plasma anion gap de terminationOrdered By: Valerio Charles on 09-06-2022 Anion gap [Moles/Vol] 8.9 mmol/L 6.0-15.0 [facility] Serum or plasma calcium maxim urement (mass/volume)Ordered By: Valerio Charles on 09-06-2022 Calcium [Mass/Vol] 9.4 mg/dL 8.2-10.2 [facility] Serum or plasma chloride kg surement (moles/volume)Ordered By: Valerio Charles on 09-06-2022 Chloride [Moles/Vol] 100 mmol/L 95-114 [facility] Serum or plasma glucose maxim urement (mass/volume)Ordered By: Valerio Charles on 09-06-2022 Glucose [Mass/Vol] 109 mg/dL 70-100 [facility] Comment on above: ADA recommended refe rence rangeRandom Glucose Reference Range is dependent on time and content of last meal. Glucose of more than 200 mg/dL in a nonstressed, ambulatory subject supports the diagnosis of Diabetes Mellitus. Serum or plasma potassium me asurement (moles/volume)Ordered By: Valerio Charles on 09-06-2022 Potassium [Moles/Vol] 2.6 mmol/L 3.5-5.1 [facility] Comment on above: Results calledat 070 7 on 09/06/22 Serum or plasma sodium measu rement (moles/volume)Ordered By: Valerio Charles on 09-06-2022 Sodium [Moles/Vol] 134 mmol/L 136-146 [facility] Serum or plasma total carbon dioxide measurement (moles/volume)Ordered By: Valerio Charles on 09-06-2022 CO2 [Moles/Vol] 27.7 mmol/L 22.0-30.0 [facility] Serum or plasma urea nitroge n measurement (mass/volume)Ordered By: Valerio Charles on 09-06-2022 Urea nitrogen [Mass/Vol] 8 mg/dL 9-23 [facility] COVID-19 SOFIAOrdered By: Higinio Smith on 09-04-2022 SARS-CoV+SARS-CoV-2 (COVID-19) Ag IA.rapid Ql (Resp) Negative Negative [facility] Comment on above: This is a duplicate Mia SARS Antigen (JOHNY) result to be used for statistical tracking purpose only. No Panel InformationOrdered By: Aki Garcia on 09-04-2022 SARS Antigen (LFIA) [facility] CBC AUTO DIFFon 08-02-2022 BASO # 0.0 103/ul Normal 0.0-0.1 [facility] Comment on above: Performed By: #### C BC #### [facility] [address] [place] [address] Dr. Vianey Headley Basophils/100 WBC (Bld) 0.8 % Normal 0.2-2.0 [facility] Comment on above: Performed By: #### C BC #### [facility] [address] [place] [address] Dr. Vianey Headley EO # 0.1 103/ul Normal 0.0-0.7 [facility] Comment on above: Performed By: #### C BC #### [facility] [address] [place] [address] Dr. Vianey Headley Eosinophils/100 WBC (Bld) 2.4 % Normal 0.9-7.0 [facility] Comment on above: Performed By: #### C BC #### [facility] [address] [place] [address] Dr. Vianey Headley Erythrocyte distribution width (RBC) [Ratio] 12.6 % Normal 11.0-15.0 [facility] Comment on above: Performed By: #### C BC #### [facility] [address] [place] [address] Dr. Vianey Headley Hematocrit (Bld) [Volume fraction] 35.1 % Critically low 36.0-48.0 [facility] Comment on above: Performed By: #### C BC #### [facility] [address] [place] [address] Dr. Vianey Headley Hemoglobin (Bld) [Mass/Vol] 11.4 g/dL Critically low 12.0-16.0 [facility] Comment on above: Performed By: #### C BC #### [facility] [address] [place] [address] Dr. Vianey Headley IG # 0.01 10e3/ul Normal 0.00-0.03 [facility] Comment on above: Performed By: #### C BC #### [facility] [address] [place] [address] Dr. Vianey Headley IG % 0.2 % Normal 0.0-0.5 [facility] Comment on above: Performed By: #### C BC #### [facility] [address] [address] [address] Vianey Headley LYMPH # 1.5 103/ul Normal 1.2-3.8 [facility] Comment on above: Performed By: #### C BC #### [facility] [address] [address] [address] Vianey Headley Lymphocytes/100 WBC (Bld) 29.6 % Normal 20.5-60.0 [facility] Comment on above: Performed By: #### C BC #### [facility] [address] [place] [address] Dr. Vianey Headley MANUAL DIFF REQ NO Normal [facility] Comment on above: Performed By: #### C BC #### [facility] [address] [place] [address] Dr. Vianey Headley MCH (RBC) [Entitic mass] 31.4 pg Normal 26.7-34.0 [facility] Comment on above: Performed By: #### C BC #### [facility] [address] [place] [address] Dr. Vianey Headley MCHC (RBC) [Mass/Vol] 32.5 g/dL Normal 29.9-35.2 [facility] Comment on above: Performed By: #### C BC #### [facility] [address] [place] [address] Dr. Vianey Headley MCV (RBC) [Entitic vol] 96.7 fL Normal 81.0-99.0 [facility] Comment on above: Performed By: #### C BC #### [facility] [address] [place] [address] Dr. Vianey Headley MONO # 0.4 103/ul Normal 0.3-0.8 [facility] Comment on above: Performed By: #### C BC #### [facility] [address] [place] [address] Dr. Vianey Headley Monocytes/100 WBC (Bld) 8.1 % Normal 1.7-12.0 [facility] Comment on above: Performed By: #### C BC #### [facility] [address] [address] [address] Vianey Headley NEUT # 2.9 103/ul Normal 1.4-6.5 [facility] Comment on above: Performed By: #### C BC #### [facility] [address] [address] [address] Vianey Headley Neutrophils/100 WBC (Bld) 58.9 % Normal 43.0-75.0 [facility] Comment on above: Performed By: #### C BC #### [facility] [address] [address] [address] Vianey Headley Platelet mean volume (Bld) [Entitic vol] 11.2 fL Normal 9.5-13.5 [facility] Comment on above: Performed By: #### C BC #### [facility] [address] [address] [address] Vianey Headley PLT 262 103/ul Normal 150-450 [facility] Comment on above: Performed By: #### C BC #### [facility] [address] [address] [address] Vianey Headley RBC 3.63 106/ul Critically low 4.20-5.40 [facility] Comment on above: Performed By: #### C BC #### [facility] [address] [address] [address] Vianey Headley WBC 4.9 103/ul Normal 4.0-11.0 [facility] Comment on above: Performed By: #### C BC #### [facility] [address] [address] [address] Vianey Headley GLYCOHEMOGLOBIN A1Con 2021 ADA RECOMMENDATION SEE BELOW Normal [facility] Comment on above: Result Comment: ADA RECOMMENDED LIMIT 4.0 - 6.0 ADA THERAPEUTIC TARGET < 7.0 ACTION SUGGESTED > 7.0 Performed By: #### A 1C #### [facility] [address] [place] [address] Dr. Vianey Headley Glucose [Mass/Vol] 134 mg/dL Normal [facility] Comment on above: Performed By: #### A 1C #### [facility] [address] [place] [address] Dr. Vianey Headley HbA1c (Bld) [Mass fraction] 6.3 % Critically high 4.5-6.2 [facility] Comment on above: Performed By: #### A 1C #### [facility] [address] [place] [address] Dr. Vianey Headley LIPID PROFILEon 08-02-2022 CHOL-HDL RATIO NORM SEE BELOW Normal [facility] Comment on above: Result Comment: 3.3 - 4.4 LOW RISK 4.4 - 7.1 AVERAGE RISK 7.1 - 11.0 MODERATE RISK >11.0 HIGH RISK Performed By: #### T SH, BMP, LIPID, LIVER #### [facility] [address] [place] [address] Dr. Vianey Headley Cholesterol [Mass/Vol] 188 mg/dL Normal <=200 [facility] Comment on above: Performed By: #### T SH, BMP, LIPID, LIVER #### [facility] [address] [place] [address] Dr. Vianey Headley Cholesterol in HDL [Mass/Vol] 38 mg/dL Critically low 40-60 [facility] Comment on above: Performed By: #### T SH, BMP, LIPID, LIVER #### [facility] [address] [place] [address] Dr. Vianey Headley Cholesterol in LDL [Mass/Vol] 100.8 mg/dL Normal [facility] Comment on above: Performed By: #### T SH, BMP, LIPID, LIVER #### [facility] [address] [place] [address] Dr. Vianey Headley Cholesterol.total/Choles terol in HDL [Mass ratio] 4.9 {ratio} Normal [facility] Comment on above: Performed By: #### T SH, BMP, LIPID, LIVER #### [facility] [address] [place] [address] Dr. Vianey Headley HDL NORMAL > or = 60 mg/dl - LOW CARDIOVASCULAR RISK <40 mg/dl - HIGH CARDIOVASCULAR RISK Normal [facility] Comment on above: Performed By: #### T SH, BMP, LIPID, LIVER #### [facility] [address] [address] [address] Vianey Headley LDL CALC NORMAL SEE BELOW Normal [facility] Comment on above: Result Comment: <100 mg/dl OPTIMAL 100 - 129 mg/dl NEAR OR ABOVE OPTIMAL 130 - 159 mg/dl BORDERLINE HIGH 160 - 189 mg/dl HIGH >190 mg/dl VERY HIGH Performed By: #### T SH, BMP, LIPID, LIVER #### [facility] [address] [address] [address] Vianey Headley Triglyceride [Mass/Vol] 246 mg/dL Critically high <=150 [facility] Comment on above: Performed By: #### T SH, BMP, LIPID, LIVER #### [facility] [address] [place] [address] Dr. Vianey Headley VLDL CALC 49.2 mg/dL Normal [facility] Comment on above: Performed By: #### T SH, BMP, LIPID, LIVER #### [facility] [address] [place] [address] Dr. Vianey Headley LIVER PROFILEon 08-02-2022 Albumin [Mass/Vol] 3.7 g/dL Normal 3.4-5.0 [facility] Comment on above: Performed By: #### T SH, BMP, LIPID, LIVER #### [facility] [address] [place] [address] Dr. Vianey Headley Albumin/Globulin [Mass ratio] 1.3 {ratio} Normal [facility] Comment on above: Performed By: #### T SH, BMP, LIPID, LIVER #### [facility] [address] [place] [address] Dr. Vianey Headley ALP [Catalytic activity/Vol] 82 U/L Normal 46-116 [facility] Comment on above: Performed By: #### T SH, BMP, LIPID, LIVER #### [facility] [address] [place] [address] Dr. Vianey Headley ALT [Catalytic activity/Vol] 23 U/L Normal 14-59 [facility] Comment on above: Performed By: #### T SH, BMP, LIPID, LIVER #### [facility] [address] [place] [address] Dr. Vianey Headley AST [Catalytic activity/Vol] 16 U/L Normal 15-37 [facility] Comment on above: Performed By: #### T SH, BMP, LIPID, LIVER #### [facility] [address] [place] [address] Dr. Vianey Headley BILI, CONJUGATED 0.1 mg/dL Normal 0.0-0.2 [facility] Comment on above: Performed By: #### T SH, BMP, LIPID, LIVER #### [facility] [address] [place] [address] Dr. Vianey Headley Bilirubin [Mass/Vol] 0.3 mg/dL Normal 0.2-1.0 [facility] Comment on above: Performed By: #### T SH, BMP, LIPID, LIVER #### [facility] [address] [place] [address] Dr. Vianey Headley Globulin (S) [Mass/Vol] 2.9 g/dL Normal [facility] Comment on above: Performed By: #### T SH, BMP, LIPID, LIVER #### [facility] [address] [place] [address] Dr. Vianey Headley Protein [Mass/Vol] 6.6 g/dL Normal 6.4-8.2 [facility] Comment on above: Performed By: #### T SH, BMP, LIPID, LIVER #### [facility] [address] [place] [address] Dr. Vianey Headley PROF CHEM 8 (BAS METB)on Anion gap [Moles/Vol] 12.5 mmol/L Normal [facility] Comment on above: Performed By: #### T SH, BMP, LIPID, LIVER #### [facility] [address] [place] [address] Dr. Vianey Headley Calcium [Mass/Vol] 9.1 mg/dL Normal 8.5-10.1 [facility] Comment on above: Performed By: #### T SH, BMP, LIPID, LIVER #### [facility] [address] [place] [address] Dr. Vianey Headley Chloride [Moles/Vol] 101 mmol/L Normal 98-107 [facility] Comment on above: Performed By: #### T SH, BMP, LIPID, LIVER #### [facility] [address] [address] [address] Vianey Headley CO2 [Moles/Vol] 27.7 mmol/L Normal 21.0-32.0 [facility] Comment on above: Performed By: #### T SH, BMP, LIPID, LIVER #### [facility] [address] [address] [address] Vianey Headley Creatinine [Mass/Vol] 1.12 mg/dL Critically high 0.55-1.02 [facility] Comment on above: Performed By: #### T SH, BMP, LIPID, LIVER #### [facility] [address] [place] [address] Dr. Vianey Headley EGFR-AF TONGAN 58 mL/min/1.73m2 Critically low >=60 [facility] Comment on above: Performed By: #### T SH, BMP, LIPID, LIVER #### [facility] [address] [address] [address] Vianey Headley EGFR-NON AF TONGAN 48 mL/min/1.73m2 Critically low >=60 [facility] Comment on above: Performed By: #### T SH, BMP, LIPID, LIVER #### [facility] [address] [address] [address] Vianey Headley Glucose [Mass/Vol] 113 mg/dL Critically high 74-106 [facility] Comment on above: Performed By: #### T SH, BMP, LIPID, LIVER #### [facility] [address] [address] [address] Vianey Headley Potassium [Moles/Vol] 4.2 mmol/L Normal 3.5-5.1 [facility] Comment on above: Performed By: #### T SH, BMP, LIPID, LIVER #### [facility] [address] [address] [address] Vianey Headley Sodium [Moles/Vol] 137 mmol/L Normal 136-145 [facility] Comment on above: Performed By: #### T SH, BMP, LIPID, LIVER #### [facility] [address] [address] [address] Vianey Headley Urea nitrogen [Mass/Vol] 10.0 mg/dL Normal 7.0-18.0 [facility] Comment on above: Performed By: #### T SH, BMP, LIPID, LIVER #### [facility] [address] [address] [address] Vianey Headley Urea nitrogen/Creatinine [Mass ratio] 8.9 mg/mg Normal [facility] Comment on above: Performed By: #### T SH, BMP, LIPID, LIVER #### [facility] [address] [address] [address] Vianey Headley TSHon 08-02-2022 TSH 2.128 uIU/mL Normal 0.358-3.740 [facility] Comment on above: Performed By: #### T SH, BMP, LIPID, LIVER #### [facility] [address] [address] [address] Vianey Headley Basophils Auto (Bld) [#/Vol] Ordered By: Aki Garcia on 07-31-2022 Basophils (Bld) [#/Vol] 0.0 10*3/uL 0.0-0.2 [facility] Basophils/100 WBC Auto (Bld) Ordered By: Aki Garcia on 07-31-2022 Basophils/100 WBC (Bld) 0.6 % . [facility] Creatinine and Glomerular fi ltration rate.predicted panel (S/P/Bld)Ordered By: Aki Garcia on 07-31-2022 Creatinine [Mass/Vol] 0.95 mg/dL 0.44-1.03 [facility] Eosinophils Auto (Bld) [#/Vo l]Ordered By: Aki Garcia on 07-31-2022 Eosinophils (Bld) [#/Vol] 0.1 10*3/uL 0.0-0.45 [facility] Eosinophils/100 WBC Auto (Bl d)Ordered By: Aki Garcia on 07-31-2022 Eosinophils/100 WBC (Bld) 2.1 % . [facility] Erythrocyte distribution wid th Auto (RBC) [Ratio]Ordered By: Aki Garcia on 07-31-2022 Erythrocyte distribution width (RBC) [Ratio] 13.2 % 11.9-15.3 [facility] Estimated glomerular filtrat ion rate (GFR) non- AmericanOrdered By: Aki Garcia on 07-31-2022 GFR/1.73 sq M.predicted among non-blacks MDRD (S/P/Bld) [Vol rate/Area] 58 mL/Min [facility] Hematocrit Auto (Bld) [Volum e fraction]Ordered By: Aki Garcia on 07-31-2022 Hematocrit (Bld) [Volume fraction] 36.1 % 34.0-46.4 [facility] Hemoglobin [Mass/volume] in BloodOrdered By: Aki Garcia on 07-31-2022 Hemoglobin (Bld) [Mass/Vol] 12.0 g/dL 11.8-15.4 [facility] Laboratory - Hematology and Cell countsOrdered By: Aki Garcia on 07-31-2022 Nucleated RBC/100 WBC (Bld) [Ratio] 0.0 % 0-0.5 [facility] Leukocytes [#/volume] in Blo od by Automated countOrdered By: Aki Garcia on 07-31-2022 WBC (Bld) [#/Vol] 5.7 10*3/uL 4.5-11.0 [facility] Lymphocytes Auto (Bld) [#/Vo l]Ordered By: Aki Garcia on 07-31-2022 Lymphocytes (Bld) [#/Vol] 1.5 10*3/uL 1.00-4.8 [facility] Lymphocytes/100 WBC Auto (Bl d)Ordered By: Aki Garcia on 07-31-2022 Lymphocytes/100 WBC (Bld) 25.5 % . [facility] MCH Auto (RBC) [Entitic mass ]Ordered By: Aki Garcia on 07-31-2022 MCH (RBC) [Entitic mass] 31.2 pg 24.7-34.3 [facility] MCHC Auto (RBC) [Mass/Vol]Or dered By: Aki Garcia on 07-31-2022 MCHC (RBC) [Mass/Vol] 33.3 g/dL 32.0-35.0 [facility] MCV Auto (RBC) [Entitic vol] Ordered By: Aki Garcia on 07-31-2022 MCV (RBC) [Entitic vol] 93.7 fL 80-100 [facility] Monocytes Auto (Bld) [#/Vol] Ordered By: Aki Garcia on 07-31-2022 Monocytes (Bld) [#/Vol] 0.5 10*3/uL 0.0-0.8 [facility] Monocytes/100 WBC Auto (Bld) Ordered By: Aki Garcia on 07-31-2022 Monocytes/100 WBC (Bld) 7.9 % . [facility] Neutrophils Auto (Bld) [#/Vo l]Ordered By: Aki Garcia on 07-31-2022 Neutrophils (Bld) [#/Vol] 3.7 10*3/uL 1.8-7.7 [facility] Neutrophils/100 WBC Auto (Bl d)Ordered By: Aki Garcia on 07-31-2022 Neutrophils/100 WBC (Bld) 63.9 % . [facility] No Panel InformationOrdered By: Aki Garcia on 07-31-2022 Estimated GFR () > 60 mL/Min [facility] Comment on above: GFR estimated refere nce range: According to KDOQI guidelines, <60 ml/min/1.73m2 is sufficient to diagnose a patient with chronic kidney disease. Pharmacy Creatinine Clearance (Chem N/A [facility] Platelet mean volume Auto (B ld) [Entitic vol]Ordered By: Aki Garcia on 07-31-2022 Platelet mean volume (Bld) [Entitic vol] 9.1 fL 6.3-10.7 [facility] Platelets Auto (Bld) [#/Vol] Ordered By: Aki Garcia on 07-31-2022 Platelets (Bld) [#/Vol] 277 10*3/uL 150-450 [facility] RBC Auto (Bld) [#/Vol]Ordere d By: Aki Garcia on 07-31-2022 RBC (Bld) [#/Vol] 3.85 10*6/uL 3.60-5.00 [facility] Serum or plasma anion gap de terminationOrdered By: Aki Garcia on 07-31-2022 Anion gap [Moles/Vol] 14.3 mmol/L 6.0-15.0 [facility] Serum or plasma calcium maxim urement (mass/volume)Ordered By: Aki Garcia on 07-31-2022 Calcium [Mass/Vol] 9.8 mg/dL 8.2-10.2 [facility] Serum or plasma chloride kg surement (moles/volume)Ordered By: Aki Garcia on 07-31-2022 Chloride [Moles/Vol] 98 mmol/L 95-114 [facility] Serum or plasma glucose maxim urement (mass/volume)Ordered By: Aki Garcia on 07-31-2022 Glucose [Mass/Vol] 111 mg/dL 70-100 [facility] Comment on above: ADA recommended refe rence rangeRandom Glucose Reference Range is dependent on time and content of last meal. Glucose of more than 200 mg/dL in a nonstressed, ambulatory subject supports the diagnosis of Diabetes Mellitus. Serum or plasma potassium me asurement (moles/volume)Ordered By: Aki Garcia on 07-31-2022 Potassium [Moles/Vol] 3.8 mmol/L 3.5-5.1 [facility] Serum or plasma sodium measu rement (moles/volume)Ordered By: Aki Garcia on 07-31-2022 Sodium [Moles/Vol] 138 mmol/L 136-146 [facility] Serum or plasma total carbon dioxide measurement (moles/volume)Ordered By: Aki Garcia on 07-31-2022 CO2 [Moles/Vol] 29.5 mmol/L 22.0-30.0 [facility] Serum or plasma urea nitroge n measurement (mass/volume)Ordered By: Aki Garcia on 07-31-2022 Urea nitrogen [Mass/Vol] 10 mg/dL 9-23 [facility] Creatinine (Bld) [Mass/Vol]O rdered By: Aki Garcia on 06-15-2022 Creatinine [Mass/Vol] 1.1 mg/dL 0.6-1.3 [facility] Comment on above: ER/ESD physician is notified/shown all ISTAT results. Critical values may be confirmed by laboratory testing if deemed necessary by ER attending doctor. ER/ESD physician is notified/shown all ISTAT results.Critical values may be confirmed by laboratory testing ifdeemed necessary by ER attending doctor. No Panel InformationOrdered By: Aki Garcia on 06-15-2022 POC Estimated GFR 60 [facility] Comment on above: GFR estimated refere nce range: According to KDOQI guidelines, <60 ml/min/1.73m2 is sufficient to diagnose a patient with chronic kidney disease. POC Estimated GFR Non- Amer 49 [facility] Vital Signs Date Time Vital Sign Value Performing Clinician Facility 01-17-2024 10:31-0400 Body height 152.4 cm MD Jesse Deluca Work Phone: [facility] 01-17-2024 10:31-0400 Body mass index (BMI) [Ratio] 31 kg/m2 MD Jesse Deluca Work Phone: [facility] 01-17-2024 10:31-0400 Body weight 72.12 kg MD Jesse Deluca Work Phone: [facility] 08-09-2023 15:40-0400 Body height 152.4 cm Aki Garcia Other [facility] Other 08-09-2023 15:40-0400 Body mass index (BMI) [Ratio] 30.46 kg/m2 Aki Garcia Other [facility] Other 08-09-2023 15:40-0400 Body weight 70.76 kg Aki Garcia Other [facility] Other 02-08-2023 16:20-0400 Body height 152.4 cm Aki Garcia Other [facility] Other 02-08-2023 16:20-0400 Body mass index (BMI) [Ratio] 28.71 kg/m2 Aki Garcia Other [facility] Other 02-08-2023 16:20-0400 Body weight 66.68 kg Aki Garcia Other [facility] Other 12-27-2022 15:15-0500 Body temperature 99.5 [degF] MD Jesse Deluca Work Phone: [facility] 12-27-2022 15:15-0500 Diastolic blood pressure 70 mm[Hg] MD Jesse Deluca Work Phone: [facility] 12-27-2022 15:15-0500 Heart rate 74 /min MD Jesse Deluca Work Phone: [facility] 12-27-2022 15:15-0500 Respiratory rate 18 /min MD Jesse Deluca Work Phone: [facility] 12-27-2022 15:15-0500 SaO2% (BldA) [Mass fraction] 98 % MD Jesse Deluca Work Phone: [facility] 12-27-2022 15:15-0500 Systolic blood pressure 130 mm[Hg] MD Jesse Deluca Work Phone: [facility] 12-25-2022 16:35-0500 Inhaled oxygen flow rate 2 L/min MD Jesse Deluca Work Phone: [facility] 12-25-2022 07:54-0500 Body height 149.86 cm MD Jesse Deluca Work Phone: [facility] 12-25-2022 07:54-0500 Body mass index (BMI) [Ratio] 29.8 kg/m2 MD Jesse Deluca Work Phone: [facility] 12-25-2022 07:54-0500 Body weight 67 kg MD Jesse Deluca Work Phone: [facility] 12-12-2022 15:20-0500 Body height 152.4 cm Aki Garcia Other [facility] Other 12-12-2022 15:20-0500 Body mass index (BMI) [Ratio] 31.64 kg/m2 Aki Garcia Other [facility] Other 12-12-2022 15:20-0500 Body weight 73.48 kg Aki Garcia Other [facility] Other 09-06-2022 06:44-0500 Body height 149.86 cm MD Jesse Deluca Work Phone: [facility] 09-06-2022 06:44-0500 Body temperature 98.3 [degF] MD Jesse Deluca Work Phone: [facility] 09-06-2022 06:44-0500 Body weight 70 kg MD Jesse Deluca Work Phone: [facility] 09-06-2022 06:44-0500 Diastolic blood pressure 75 mm[Hg] MD Jesse Deluca Work Phone: [facility] 09-06-2022 06:44-0500 Heart rate 74 /min MD Jesse Deluca Work Phone: [facility] 09-06-2022 06:44-0500 Respiratory rate 16 /min MD Jesse Deluca Work Phone: [facility] 09-06-2022 06:44-0500 SaO2% (BldA) [Mass fraction] 99 % MD Jesse Deluca Work Phone: [facility] 09-06-2022 06:44-0500 Systolic blood pressure 156 mm[Hg] MD Jesse Deluca Work Phone: [facility] 06-29-2022 16:20-0400 Body height 152.4 cm Aki Garcia Other [facility] Other 06-29-2022 16:20-0400 Body mass index (BMI) [Ratio] 31.64 kg/m2 Aki Garcia Other [facility] Other 06-29-2022 16:20-0400 Body weight 73.48 kg Aki Garcia Other [facility] Other 06-15-2022 13:51-0400 Body height 152.4 cm MD Jesse Deluca Work Phone: [facility] 06-15-2022 13:51-0400 Body weight 70.3 kg MD Jesse Deluca Work Phone: [facility] 01-23-2022 11:20-0400 Body height 152.4 cm Marla Woody Other [facility] Other 01-23-2022 11:20-0400 Body mass index (BMI) [Ratio] 31.64 kg/m2 Marla Woody Other [facility] Other 01-23-2022 11:20-0400 Body temperature 97.8 [degF] Marla Woody Other [facility] Other 01-23-2022 11:20-0400 Body weight 73.48 kg Marla Woody Other [facility] Other 01-23-2022 11:20-0400 Respiratory rate 18 /min Marla Woody Other [facility] Other 01-23-2022 11:20-0400 SaO2% (BldA) [Mass fraction] 98 % Marla Woody Other [facility] Other Encounters Encounter Date Encounter Type Care Provider Facility Start: 02-25-2024 End: 02-25-2024 ambulatory JESSE DELUCA Not Available Start: 01-17-2024 End: 01-17-2024 ambulatory MD Jesse Deluca Work Phone: [facility] Work Phone: Start: 01-17-2024 End: 01-17-2024 Patient encounter procedure MD Jesse Deluca Work Phone: [facility] Work Phone: Start: 01-07-2024 End: 01-07-2024 ambulatory Aki Garcia Facility:[facility] Start: 01-07-2024 End: 01-07-2024 ambulatory MD Jesse Deluca Work Phone: [facility] Work Phone: Start: 01-07-2024 End: 01-07-2024 Patient encounter procedure MD Jesse Deluca Work Phone: [facility] Work Phone: Start: 08-09-2023 End: 08-09-2023 ambulatory Aki Garcia Other [facility] Other Start: 08-09-2023 Office outpatient visit 15 minutes Aki Garcia [facility] Start: 08-08-2023 End: 08-08-2023 ambulatory Jesse Deluca Facility:[facility] Start: 05-09-2023 End: 05-09-2023 ambulatory Aki Garcia Facility:[facility] Start: 05-09-2023 End: 05-09-2023 ambulatory MD Jesse Deluca Work Phone: [facility] Work Phone: Start: 05-09-2023 End: 05-09-2023 Patient encounter procedure MD Jesse Deluca Work Phone: [facility] Work Phone: Start: 02-08-2023 End: 02-08-2023 ambulatory Aki Garcia Facility:[facility] Start: 02-08-2023 End: 02-08-2023 Patient encounter procedure MD Jesse Deluca Work Phone: [facility] Work Phone: Start: 02-08-2023 End: 02-08-2023 ambulatory MD Jesse Deluca Work Phone: [facility] Work Phone: Start: 02-08-2023 Postop follow up vis it related to original px Aki Garcia [facility] Start: 12-25-2022 Admission to [facility] Aki Joes [facility] Start: 12-25-2022 End: 12-25-2022 ambulatory Aki Jose Other [facility] Other Start: 12-25-2022 End: 12-27-2022 Evaluation and management of inpatient MD Jesse Deluca Work Phone: [facility] Work Phone: Start: 12-12-2022 Office outpatient visit 40 minutes Aki Garcia [facility] Start: 12-12-2022 End: 12-12-2022 ambulatory MD Jesse Deluca Work Phone: [facility] Work Phone: Start: 12-12-2022 End: 12-12-2022 Patient encounter procedure MD Jesse Deluca Work Phone: [facility] Work Phone: Start: 09-18-2022 End: 09-19-[address] JESSE DELUCA Facility: Start: 09-08-2022 End: 09-08-2022 ambulatory Aki Garcia Other [facility] Other Start: 09-08-2022 Encounter by herminia Garcia [facility] Start: 09-06-2022 End: 09-06-2022 Evaluation and management of inpatient MD Jesse Deluca Work Phone: [facility] Start: 09-04-2022 End: 09-04-2022 ambulatory MD Jesse Deulca Work Phone: [facility] Work Phone: Start: 09-04-2022 End: 09-04-2022 Patient encounter procedure MD Jesse Deluca Work Phone: [facility] Start: 08-02-2022 End: 08-03-[address] JESSE DELUCA Facility:[facility] Start: 07-31-2022 End: 07-31-2022 Patient encounter procedure MD Jesse Deluca Work Phone: [facility] Start: 07-19-2022 End: 07-19-2022 ambulatory MD Jesse Deluca Work Phone: [facility] Work Phone: Start: 07-19-2022 End: 07-19-2022 Patient encounter procedure MD Jesse Deluca Work Phone: [facility] Start: 07-06-2022 End: 07-06-2022 ambulatory kAi Garcia Other [facility] Other Start: 07-06-2022 Office outpatient visit 40 minutes Aki Garcia [facility] Start: 07-06-2022 End: 07-06-2022 Patient encounter procedure MD Jesse Deluca Work Phone: [facility] Start: 07-01-2022 End: 07-01-2022 Patient encounter procedure MD Jesse Deluca Work Phone: [facility] Start: 06-29-2022 End: 06-29-2022 ambulatory Aki Garcia Other [facility] Other Start: 06-29-2022 Office outpatient visit 15 minutes Aki Garcia [facility] Start: 06-15-2022 End: 06-15-2022 Patient encounter procedure MD Jesse Deluca Work Phone: [facility] Start: 01-23-2022 End: 01-23-2022 ambulatory Marla Woody Other [facility] Other Start: 01-23-2022 Office outpatient visit 15 minutes Marla Woody [facility] [place] Start: 01-21-2020 End: 01-21-2020 Subsequent hospital visit by physician hCerelle [facility] Start: 01-19-2020 End: 01-19-2020 Subsequent hospital visit by physician Cherelle [facility] Comment on above: Canceled (COVID-19) Start: 01-05-2020 End: 01-06-2020 Patient encounter procedure JESSE [facility] Start: 01-05-2020 End: 01-05-2020 Subsequent hospital visit by physician Cherelle [facility] Comment on above: Arrived Start: 01-02-2020 End: 01-03-2020 Patient encounter procedure JESSE [facility] Start: 01-02-2020 End: 01-02-2020 Subsequent hospital visit by physician Cherelle [facility] Comment on above: Arrived Start: 12-29-2019 End: 12-30-2019 [facility] procedure [facility] Start: 12-29-2019 End: 12-29-2019 Subsequent hospital visit by physician Steph [facility] Comment on above: Arrived Start: 12-24-2019 End: 12-25-2019 Patient encounter procedure JESSE [facility] Start: 12-24-2019 End: 12-24-2019 Subsequent hospital visit by physician Steph [facility] Comment on above: Arrived Start: 12-22-2019 End: 12-23-2019 Patient encounter procedure JESSE [facility] Start: 12-22-2019 End: 12-22-2019 Subsequent hospital visit by physician Steph [facility] Comment on above: Arrived Start: 12-17-2019 End: 12-18-2019 Patient encounter procedure JESSE TRAN [facility] Start: 12-15-2019 End: 12-16-2019 Patient encounter procedure JESSE MARC [facility] Start: 12-15-2019 End: 12-15-2019 Subsequent hospital visit by physician Cherelle Villeda [facility] Comment on above: Arrived Start: 12-10-2019 End: 12-11-2019 Patient encounter procedure JESSE TRAN [facility] Start: 12-10-2019 End: 12-10-2019 Subsequent hospital visit by physician Steph Cannon [facility] Comment on above: Arrived Start: 12-08-2019 End: 12-09-2019 Patient encounter procedure [facility] Start: 12-08-2019 End: 12-08-2019 Subsequent hospital visit by physician Steph Cannon [facility] Comment on above: Arrived Start: 12-05-2019 End: 12-06-2019 Patient encounter procedure JESSE [facility] Start: 12-02-2019 End: 12-03-2019 Patient encounter procedure JESSE [facility] Start: 12-02-2019 End: 12-02-2019 Subsequent hospital visit by physician Steph Cannon [facility] Comment on above: Arrived Procedures Date Procedure Procedure Detail Performing Clinician Start: 01-07-2024 X-ray of lumbar spin e, four views MD Jesse Deluca Work Phone: Start: 05-09-2023 X-ray of lumbar spin e, four views MD Jesse Deluca Work Phone: Start: 02-08-2023 X-ray of lumbar spin e, four views MD Jesse Deluca Work Phone: Start: 12-25-2022 OR Lumbar Laminectom y w/Fix Implants (Not Applicable) MD Jesse Deluca Work Phone: Start: 12-25-2022 X-ray of lumbar spin e, two or three views MD Jesse Deluca Work Phone: Start: 07-19-2022 Dual energy X-ray absorptiometry MD Jesse Deluca Work Phone: Start: 07-06-2022 X-ray of lumbar spin e, six views including bending views MD Jesse Deluca Work Phone: Start: 07-01-2022 XR pre/post mri xray MD Jesse Deluca Work Phone: Start: 07-01-2022 MR lumbar spine wo con MD Jesse Deluca Work Phone: Start: 06-15-2022 MRI of head MD Jesse puckett Work Phone: SARS Antigen (LFIA) MD Jesse Deluca Work Phone: Plan of Treatment Date Care Activity Detail Author Start: 12-27-2022 [facility] Start: 12-25-2022 Computer Assisted Procedure of Trunk Region Computer Assisted Procedure of Trunk Region [facility] Start: 12-25-2022 Excision of Lumbar Vertebral Disc, Open Approach Excision of Lumbar Vertebral Disc, Open Approach [facility] Start: 12-25-2022 Fusion of 2 or more Lumbar Vertebral Joints with Interbody Fusion Device, Posterior Approach, Anterior Column, Open Approach Fusion of 2 or more Lumbar Vertebral Joints with Interbody Fusion Device, Posterior Approach, Anterior Column, Open Approach [facility] Start: 12-25-2022 Introduction of Recombinant Bone Morphogenetic Protein into Joints, Open Approach Introduction of Recombinant Bone Morphogenetic Protein into Joints, Open Approach [facility] Start: 09-06-2022 OR Lumbar Laminectomy w/Fix Implants (Not Applicable) OR Lumbar Laminectomy w/Fix Implants (Not Applicable) [facility] Start: 09-06-2022 [facility] Start: 09-06-2022 Sleep disorder assessment [facility] Start: 06-22-2020 Influenza vaccination Flu vaccine (Season Ended) [facility] [place] Start: 01-21-2020 End: 01-21-2020 Appointment 01/21/2020 Appointment Physical Therapy Cherelle Villeda, [facility] Start: 01-19-2020 End: 01-19-2020 Appointment [facility] Start: 01-14-2020 End: 01-14-2020 Appointment 01/14/2020 Appointment Physical Therapy Cherelle Villeda, PT [facility] Start: 01-12-2020 End: 01-12-2020 [facility]ointment [facility] Start: 01-07-2020 End: 01-07-2020 Appointment 01/07/2020 Appointment Physical Therapy Cherelle Villeda, [facility] Start: 01-05-2020 End: 01-05-2020 Appointment 01/05/2020 Appointment Physical Therapy Cherelle Villeda, PT [facility] Start: 01-02-2020 End: 01-02-2020 Appointment 01/02/2020 Appointment Physical Therapy Cherelle Villeda, PT [facility] Start: 12-29-2019 End: 12-29-2019 Appointment 12/29/2019 Appointment Physical Therapy Steph Cannon, PT [facility] Start: 12-24-2019 End: 12-24-2019 Appointment 12/24/2019 Appointment Physical Therapy Steph Cannon PT [facility] Start: 12-22-2019 End: 12-22-2019 Appointment 12/22/2019 Appointment Physical Therapy Steph Cannon PT [facility] Start: 12-17-2019 End: 12-17-2019 Appointment 12/17/2019 Appointment Physical Therapy Cherelle Villeda PT [facility] Start: 12-15-2019 End: 12-15-2019 Appointment 12/15/2019 Appointment Physical Therapy Cherelle Villeda PT [facility] Start: 12-10-2019 End: 12-10-2019 Appointment 12/10/2019 Appointment Physical Therapy Steph Cannon PT [facility] Start: 12-08-2019 End: 12-08-2019 Appointment 12/08/2019 Appointment Physical Therapy Steph Cannon, PT [facility] Start: 12-05-2019 End: 12-05-2019 Appointment 12/05/2019 Appointment Physical Therapy Steph Cannno [facility] Start: 11-26-2019 Annual Wellness Visit (AWV) Annual Wellness Visit (AWV) [employer] Phone: Start: 06-22-2019 Influenza vaccination Flu vaccine (#1) [employer] Phone: Start: 2017 DEXA (modify frequency per FRAX score) DEXA (modify frequency per FRAX score) [employer] Phone: Start: 2017 Pneumococcal 65+ years Vaccine (1 of 1 - PPSV23) Pneumococcal 65+ years Vaccine (1 of 1 - PPSV23) [employer] Phone: Start: 12-22-2007 DEXA (modify frequency per FRAX score) DEXA (modify frequency per FRAX score) [facility] [place] Start: 2002 Breast cancer screen Breast cancer screen [facility] Phone: Start: 2002 Colon cancer screen colonoscopy Colon cancer screen colonoscopy [facility] Phone: Start: 2002 Shingles Vaccine (1 of 2) Shingles Vaccine (1 of 2) [employer] Phone: Start: 1992 Lipid screen Lipid screen [facility] Phone: Start: 12-22-1971 DTaP/Tdap/Td vaccine (1 - Tdap) DTaP/Tdap/Td vaccine (1 - Tdap) [place], [place] Start: 12-22-1963 DTaP/Tdap/Td vaccine (1 - Tdap) DTaP/Tdap/Td vaccine (1 - Tdap) [facility] Phone: Start: 1952 Hepatitis C screen Hepatitis C screen [facility] [employer] Phone: Patient referral [facility] Work Phone: Immunizations Immunization Date Immunization Notes Care Provider Fa cility 07-20-2022 COVID-19 mRNA Bivale nt Booster (Pfizer) MD Jesse Deluca Work Phone: [facility] 07-17-2022 Fluzone QIV High-Dos e 65YR+ MD Jesse Deluca Work Phone: [facility] 03-06-2022 COVID-19 mRNA, Comir gris (Pfizer) MD Jesse Deluca Work Phone: [facility] 08-05-2021 COVID-19 mRNA, Comir gris (Pfizer) MD Jesse Deluca Work Phone: [facility] 01-11-2021 COVID-19 mRNA, Gonzales landry (Pfizer) MD Jesse Deluca Work Phone: [facility] 12-20-2020 COVID-19 mRNA, Commary landry (Pfizer) MD Jesse Deluca Work Phone: [facility] 07-22-2019 pneumococcal polysaccharide vaccine, 23 valent Marla Woody Other [facility] Payers Date Payer Category Payer Medicare [id number] 2023 Self-pay [id number] 2015 Medicare UHC MEDICARE UHC MCR SOLUTIONS xxxxxxxxx 2015-Present xxxxxxxxx [id number] 2015 Medicare [id number] 1959 Medicare [id number] [id number] 1952 Unknown [id number] 2.16.840.1.479483.3.579.2.173 1952 Unknown [id number] 2.16.840.1.143179.3.579.2.173 1952 Unknown [id number] 2.16.840.1.517279.3.579.2.173 1952 Unknown [id number] 2.16.840.1.312382.3.579.2.173 1952 Unknown [id number] 2.16.840.1.485483.3.579.2.173 1952 Unknown [id number] 2.16.840.1.745160.3.579.2.173 1952 Unknown [id number] 2.16.840.1.107238.3.579.2.173 1952 Unknown [id number] 2.16.840.1.711711.3.579.2.173 1952 Unknown [id number] 2.16.840.1.150553.3.579.2.173 1952 Unknown [id number] 2.16.840.1.308403.3.579.2.173 1952 Unknown [id number] 2.16.840.1.253580.3.579.2.173 1952 Unknown [id number] 2.16.840.1.687048.3.579.2.593 1952 Unknown [id number] 2.16.840.1.670328.3.579.2.593 1952 Unknown [id number] 2.16.840.1.076300.3.579.2.1259 Unknown David BC/ [id number] Unknown [id number] 2.16.840.1.021531.3.579.2.531 Unknown [id number] 2.16840.1.879324.3.579.2.531 Unknown [id number] 2.16840.1.920251.3.579.2.531 Unknown [facility] [id number] Social History Date Type Detail Facility Tobacco smoking status WAIS Unknown if ever smoked [employer] Phone: Sex Assigned At Not on file [employer] Phone: Sex Assigned At Sex Assigned At [facility] [employer] Other Start: 1950 Sex Assigned At Female F [facility] Start: 07-31-2022 End: 12-25-2022 Tobacco smoking status NHIS Never smoked tobacco (finding) [facility] Medical Equipment Procedure Code Equipment Code Equipment Origin al Text Equipment Identifier Dates Spinal fusion gr aft kit [id number] FDA Start: 12-25-2022 Bone-screw inter nal spinal fixation system, non-sterile [id number] FDA Start: 12-25-2022 Bone-screw inter nal spinal fixation system, non-sterile [id number] FDA Start: 12-25-2022 Bone-screw inter nal spinal fixation system, non-sterile [id number] FDA Start: 12-25-2022 Bone-screw inter nal spinal fixation system, non-sterile [id number] FDA Start: 12-25-2022 Polymeric spinal fusion cage, non-sterile [id number] FDA Start: 12-25-2022 Polymeric spinal fusion cage, non-sterile [id number] FDA Start: 12-25-2022 Bone-screw inter nal spinal fixation system, non-sterile [id number] FDA Start: 12-25-2022 Goals Date Patient Goal Desired Activity /State Functional Status Date Assessment Result Facility 12-27-2022 Functional status Patient at Baseline [facility] Work Phone: 09-06-2022 Functional status Patient at Baseline [facility] Work Phone: Mental Status Date Assessment Result Facility 12-27-2022 Cognitive function Cognitive Sta tus Patient at Baseline [facility] Work Phone: 09-06-2022 Cognitive function Cognitive Sta tus Patient at Baseline [facility] Work Phone: Clinical Notes 01-23-2022 to 08-09-2023 Note Date & Type Note Facility 08-09-2023 Evaluation note Encounter Date Diagnosis Assessment Notes Jul, Spondylolis thesis, lumbar region (ICD-10 - M43.16) This patient is doing very well, she is very happy with her outcome. I reviewed the x-ray of her lumbar spine showing good bony alignment good hardware placement and bone growth in the interbody space and shared these with the patient. I will see her again in 6 months with another x-ray of her lumbar spine. Jul, History of lumbar fusion (ICD-10 - Z98.1) [employer] Other 04-20-2023 Evaluation note* Encounter Date Diagnosis Assessment Notes Treatment Notes Treatment Clinical Notes Jan, Spondylolisthesis, lumbar region (ICD-10 - M43.16) This patient is doing very well, she is very happy with her outcome. Her radicular symptoms are completely gone she has no complaints at this time. I reviewed the x-ray of her lumbar spine which shows good bony alignment good hardware placement and shared these with the patient. I will see her again in 6 weeks with another x-ray of her lumbar spine. Jan, Lumbar stenosis with neurogenic claudication (ICD-10 - M48.062) Jan, Right lumbar radiculopathy (ICD-10 - M54.16) Kuaidi Dache Other 03-07-2023 Progress note Author Aki Garcia [facility] December 26, 2022 7:34am Note Date/Time December 26, 2022 7:34 am [facility] [address] [place] [address] Neurosurgery Progress Note Signed Patient: Rima Alves MR#: [id number] : 1950 Acct:[id number] Age/Sex: 72 / F Adm Date: 3 Loc: 4N Room: 8J8077-5 Type: ADM IN Attending Dr: Aki Garcia MD Copies to: ~ Date of Service: 12/26/2022 Subjective Subjective HPI: Patient in bed awake and alert. Says her stomach feels better today, back is sore, legs feel good. Exam Physical Exam Vital Signs: Temp Pulse Resp BP Pulse Ox O2 Del Method O2 Flow Rate 101.9 F H 104 H 18 105/61 98 Room Air 2 12/26/22 04:15 12/26/22 04:15 12/26/22 04:15 12/26/22 04:15 12/26/22 04:15 12/26/22 04:15 12/25/22 16:35 Narrative: Lower extremity strength and motion baseline Gait grossly normal Incision clean dry Brace fitting appropriately Assessment/Plan Assessment/Plan (1) Spondylolisthesis, lumbar region: Plan: Increase activity as tolerated with physical therapy. Code(s): M43.16 - Spondylolisthesis, lumbar region Status: Acute Documented By: Aki Garcia MD 12/26/22 0727 Signed By: <Electronically signed by MD Aki Garcia> 12/26/22 0734 [facility] Work Phone: 1(370) 153-110802-21-2023 Evaluation note* Encounter Date Diagnosis Assessment Notes Treatment Notes Treatment Clinical Notes Nov, Spondylolisthesis, lumbar region (ICD-10 - M43.16) I have independently reviewed the MRI of the lumbar spine and the report and the plain x-ray with 6 views of the lumbar spine and the report. The patient has a definite spondylolisthesis at L4-5 and has severe stenosis at L4-5 and moderate to severe stenosis at L3-4. She can no longer tolerate the claudicatory symptoms. She has failed physical therapy and pain management and can no longer keep the symptoms at bay. She desires elective decompression. We are recommending posterior lumbar interbody fusion L3-L4-L5 pedicle screws rods with interbody cages L3-4 and L4-5 with full decompressions. Bilateral lateral fusion should also be done. We reviewed all imaging face to face with the patient and we discussed with the patient carefully all treatment options and the indication operation postop course risk and benefits of surgery as well as complications to include infection nerve damage potential paralysis and incomplete relief of symptoms. Patient fully understands the above and would like to proceed with surgical intervention. She will need to be braced postoperatively for immobilization to allow healing of the fusion for 3 months. A lumbar sagital bracee will be dispensed prior to surgery to reduce pain by restricting mobility of the trunk and to otherwise support weak spinal muscles and/or a deformed spine. Nov, Lumbar stenosis with neurogenic claudication (ICD-10 - M48.062) Nov, Right lumbar radiculopathy (ICD-10 - M54.16) Nov, Asymptomatic age-related postmenopausal state (ICD-10 - Z78.0) Kuaidi Dache Other 09-15-2022 Evaluation note* Encounter Date Diagnosis Assessment Notes Treatment Notes Treatment Clinical Notes Jun, Spondylolisthesis, lumbar region (ICD-10 - M43.16) I have independently reviewed the MRI of the lumbar spine and the report and the plain x-ray with 6 views of the lumbar spine and the report. The patient has a definite spondylolisthesis at L4-5 and has severe stenosis at L4-5 and moderate to severe stenosis at L3-4. She can no longer tolerate the claudicatory symptoms. She has failed physical therapy and pain management and can no longer keep the symptoms at bay. She desires elective decompression. We are recommending posterior lumbar interbody fusion L3-L4-L5 pedicle screws rods with interbody cages L3-4 and L4-5 with full decompressions. Bilateral lateral fusion should also be done. We reviewed all imaging face to face with the patient and we discussed with the patient carefully all treatment options and the indication operation postop course risk and benefits of surgery as well as complications to include infection nerve damage potential paralysis and incomplete relief of symptoms. Patient fully understands the above and would like to proceed with surgical intervention. She will need to be braced postoperatively for immobilization to allow healing of the fusion for 3 months. A lumbar sagital bracee will be dispensed prior to surgery to reduce pain by restricting mobility of the trunk and to otherwise support weak spinal muscles and/or a deformed spine. I will also order a DEXA on the patient to check bone quality, which I will review prior to surgery. Jun, Lumbar stenosis with neurogenic claudication (ICD-10 - M48.062) Jun, Right lumbar radiculopathy (ICD-10 - M54.16) Jun, Asymptomatic age-related postmenopausal state (ICD-10 - Z78.0) [facility]idi Dache Other 09-08-2022 Evaluation note* Encounter Date Diagnosis Assessment Notes Treatment Notes Treatment Clinical Notes Jun, Meningioma (ICD-10 - D32.9) I have independently reviewed the MRI of the brain and compared this to the previous MRI showing no change in the meningioma. The patient will check her old records and we want to find the size of the tumor several years ago and make a comparison. She understands and agrees with that. I will see her again in probably 2 years with a new MRI. Kuaidi Dache Other 04-04-2022 Evaluation note* Encounter Date Diagnosis Assessment Notes Treatment Notes Treatment Clinical Notes Jan, Contact with and (suspected) exposure to other viral communicable diseases (ICD-10 - Z20.828) Jan, Acute viral bronchitis (ICD-10 - J20.8) Discussed diagnosis with patient in detail. Will treat as viral today based on physical exam and duration of symptoms, antibiotics are not indicated for viral infections. Advised patient that viral syndromes last 7-10 days, cough may linger for 3 weeks. Take medications as prescribed, reviewed side effects of steroid, take with food and plenty of water. Supportive care as directed, push fluids and rest, may use Tylenol as needed for fever/discomfort, cool mist humidifier. May use Wood as needed for cough, do not take any other OTCs while using Wood. May use albuterol inhaler as needed. Patient to follow up with PCP in 2-3 days. Immediate eval if SOB, difficulty breathing, chest pain, dizziness, or other concerning symptoms. Patient verbalizes understanding and is agreeable to treatment plan Jan, Other Additional time spent conducting pre-visit phone call, screening for symptoms, instructions on social distancing, application and removal of PPE, and cleaning of examination room, equipment and supplies was preformed. Patient education given for testing methodology and results. Patient care instructions given in writting by [facility] Care At Home document Kuaidi Dache Other Evaluation noteNo assessment information available [facility] Work Phone: Evaluation noteNo InformationNort [employer] Other evaluation note* Diagnosis Onset Date Resolution Status Spondylolisthesis, lumbar region acute [facility] Work Phone: History general Narrative - Reported* Type Description Date Medical History Arthritis Medical History prediabetic Medical History hyperlipidemia Surgical History Procedure: section;Dise ase: 1980 Surgical History Procedure:Cholecystectomy;Disea se: 2010 Surgical History L knee scope DAP 04/30/13 Hospitalization History surgeries [facility] Other History general Narrative - Reported* Type Description Date Medical History Arthritis Medical History prediabetic Medical History hyperlipidemia Surgical History Procedure: section;Dise ase: 1980 Surgical History Procedure:Cholecystectomy;Disea se: 2010 Surgical History L knee scope DAP 04/30/13 Surgical History PLIF 2022 Hospitalization History surgeries Hospitalization History see above [facility] Dache Other Hospital Discharge instructions Additional Instructions Please follow up with your primary care provider to address your low potassium level.[facility] Work Phone: Hospital Discharge instructions Additional Instructions DISCHARGE INSTRUCTIONS FOR POSTERIOR LUMBAR INTERBODY FUSION OR POSTERIOR LUMBAR FUSION DIET-regular home diet ACTIVITY - Wear brace when sitting and standing and out of bed - Activity as tolerated; No lifting over 15 pounds - Stairs as tolerated - Walk as much as possible - No driving until seen by physician; may ride in car -May shower today. When taking first shower leave dressing on complete shower remove dressing dry the wound replace dressing only if drainage is present - Keep incision clean and dry OTHER - Call your provider's office for any fever, chills, nausea, vomiting, headache, numbness, or tingling. - Call your providers office and make an appointment to see your provider in 2 weeks. Use ice as needed for back spasm 20 minutes every 1-2 hours Use the prednisone provided if the leg pain returns to a significant degree after surgery. If it does not do [facility] Work Phone: Progress note Author Valerio Charles [facility] September 06, 2022 7:35am Note Date/Time September 06, 2022 7:35am [facility] [address] [place], [place] [id number] Anesthesia Progress Note Signed Patient: Rima Alves MR#: [id number] : 1950 Acct:[id number] Age/Sex: 71 / F Adm Date: 2 Loc: 4N Room: [address] [place] [address] Type: ADM IN Attending Dr: Aki Garcia MD Copies to: ~ Anesthesia Progress Note Narrative Narrative: Patient presented for PLIF today. Perioperative labs were checked and serum potassium came back at 2.6. This is acutely low for her as her serum potassium was 3.8 last month. This was discussed with the patient. She is not aware of this ever happening before. I explained the risk of heart excitability and arrhythmia perioperatively with hypokalemia. I also explained the risk of rapidtreatment today. The patient understands and agrees to cancel surgery today andreturn to her PCP for optimization prior to her elective procedure. Documented By: Valerio Charles DO 09/06/22 0733 Signed By: <Electronically signed by Valerio Charles DO> 09/06/22 0735 [facility] Work Phone: History of Present Illness * Steph Cannon, PT - 12/08/2019 2:45 PM EST [facility] Outpatient Physical Therapy Daily Note Patient: Rima Alves : 1950 CSN #: [id number] Referring Practitioner: Jesse Deluca MD Referral Date : 07/31/19 Date: 12/08/2019 Diagnosis: Back pain Treatment Diagnosis: low back pain Onset Date: 07/22/19 PT Insurance Information: [facility] [employer] Total # of Visits Approved: 18 Per Physician Order Total # of Visits to Date: 3 No Show: 0 Canceled Appointment: 0 Pre-Treatment Pain: 3-4/10 Subjective: Pt states she felt a lot better the next 2 days getting out of bed following last appointment. Some increase soreness in left LB and buttock today. Pain rates about 3-4/10. Exercises: Exercise 1: HEP - alt hip ER in hooklying with blue band; 12/08 abd press standing with chinese ball Exercise 2: bike 8 mins Exercise 3: standing abd press - 5 sec 25x Exercise 4: cable column pull down 4pl, chest 5 pl 15x Manual: Other: IDN L4-5 and bilateral SIJ with estim x 15 mins Modalities: Moist heat: 15 mins supine Assessment Assessment: Pt able to flex fingers to mid camara with increase pain in buttock reported. Pt also with complaints of increase right buttock pain at end range trunk ext. Will continue to progress as pt tolerates. Patient Education Patient Education: ab press on chinese ball for HEP Pt verbalized/demonstrated good understanding: [x] Yes [] No, pt required further clarification. Post Treatment Pain: 2-3/10 Plan Times per week: 2 Plan weeks: 6 Goals (Total # of Visits to Date: 3) Short Term Goals - Time Frame for Short term goals: 3 weeks Short term goal 1: Pt to be instructed in home program. []Met []Partially met []Not met Short term goal 2: Pt to begin core strengthening exercises for improved lumbar stability. []Met []Partially met []Not met []Met []Partially met []Not met []Met []Partially met []Not met Senior Living Goals - Time Frame for senior living goals : 6 weeks senior living goal 1: Pt to report independence and compliance with home program. []Met []Partially met []Not met senior living goal 2: Pt to report central low back pain no greater than 2/10 with ADL's and housekeeping tasks. []Met []Partially met []Not met [employer] goal 3: Pt to demonstrate 4 to 4+/5 strength bilateral hip ER and equal hip IR ROM to assist in proper gait and functional activities. []Met []Partially met []Not met [employer] goal 4: Pt to have little to no pain with central PA mobs to lumbar spine and palpation to lumbar paraspinals. []Met []Partially met []Not met senior living goal 5: Pt to maintain full plank position for 30 seconds indicating improved core strength and lumbar stability. []Met []Partially met []Not met Minutes Tracking: Time In: 1451 Time Out: 1557 Minutes: 66 Timed Code Treatment Minutes: 56 Minutes Steph Cannon PT, DPT, CMPT Date: 12/08/2019 documented in this encounter* Steph Cannon, PT - 12/10/2019 1:15 PM EST [facility] Outpatient Physical Therapy Daily Note Patient: Rima Alves : 1950 CSN #: [id number] Referring Practitioner: Jesse Deluca MD Referral Date : 07/31/19 Date: 12/10/2019 Diagnosis: Back pain Treatment Diagnosis: low back pain Onset Date: 07/22/19 PT Insurance Information: [facility] [employer] Total # of Visits Approved: 18 Per Physician Order Total # of Visits to Date: 4 No Show: 0 Canceled Appointment: 0 Pre-Treatment Pain: 2/10 Subjective: Pt states pain today rates about 2/10 in low back. Able to bend forward with less discomfort. Didn't take any Advil today. Exercises: Exercise 2: bike 8 mins Exercise 3: standing abd press - 5 sec 25x Exercise 4: cable column pull down 4pl, chest 5 pl 15x Exercise 5: HS stretch at step - 20sec 5x Manual: Other: IDN L4-5 and right QL with estim x 15 mins Modalities: Moist heat: 15 mins supine Assessment Assessment: Pt with only mild stretching felt buttock and HS with forward flex, right greater than left. Requires frequent cueing during exercises for proper technique. Will continue to progress as pt tolerates. Patient Education 1 Patient Education: progression of ex Pt verbalized/demonstrated good understanding: [x] Yes [] No, pt required further clarification. Post Treatment Pain: 1/10 Plan Times per week: 2 Plan weeks: 6 Goals (Total # of Visits to Date: 4) Short Term Goals - Time Frame for Short term goals: 3 weeks Short term goal 1: Pt to be instructed in home program. - met []Met []Partially met []Not met Short term goal 2: Pt to begin core strengthening exercises for improved lumbar stability. 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 []Met []Partially met []Not met [employer] goal 2: Pt to report central low back pain no greater than 2/10 with ADL's and housekeeping tasks. []Met []Partially met []Not met senior living goal 3: Pt to demonstrate 4 to 4+/5 strength bilateral hip ER and equal hip IR ROM to assist in proper gait and functional activities. []Met []Partially met []Not met [employer] goal 4: Pt to have little to no pain with central PA mobs to lumbar spine and palpation to lumbar paraspinals. []Met []Partially met []Not met senior living goal 5: Pt to maintain full plank position for 30 seconds indicating improved core strength and lumbar stability. []Met []Partially met []Not met Minutes Tracking: Time In: 1312 Time Out: 1428 Minutes: 76 Timed Code Treatment Minutes: 59 Minutes Steph Cannon PT, DPT, CMPT Date: 12/10/2019 documented in this encounter* Cherelle Villeda, PT - 12/15/2019 8:30 AM EST [facility] Outpatient Physical Therapy Daily Note Patient: Rima Alves : 1950 CSN #: [id number] Referring Practitioner: Jesse Deluca MD Referral Date : 07/31/19 Date: 12/15/2019 Diagnosis: Back pain Treatment Diagnosis: low back pain Onset Date: 07/22/19 PT Insurance Information: [facility] [employer] Total # of Visits Approved: 18 Per Physician Order Total # of Visits to Date: 5 No Show: 0 Canceled Appointment: 0 Pre-Treatment Pain: 12/01 Subjective: Pt states she was not too sore after last visit. Pt states she typically feels better when she leaves therapy. Exercises: Exercise 2: bike 8 mins Exercise 3: standing abd press - 5 sec 15x Exercise 4: cable column pull down 4pl, chest 5 pl 15x Exercise 5: HS stretch at step - 20sec 5x Manual: Soft Tissue Mobalization: STM to bilateral lower lumbar paraspinals and R QL following DN Other: IDN L4-5 and right QL with estim x 15 mins-- no estim with DN this Modalities: Moist heat: 15 mins supine Assessment Assessment: DN performed to bilateral lower lumbar multifidi this date, which L lumbar region demonstrates increased tension when compared to R. STM performed after DN to assist with mobility and decreasing restriction. MHP applied at end for additional muscle relaxation and pain relief. Will progress as tolerated. Patient Education Reviewed proper form with exercises. Pt verbalized/demonstrated good understanding: [x] Yes [] No, pt required further clarification. Post Treatment Pain: 1/10 Plan Times per week: 2 Plan weeks: 6 Goals (Total # of Visits to Date: 5) Short Term Goals - Time Frame for Short term goals: 3 weeks Short term goal 1: Pt to be instructed in home program. - met []Met []Partially met []Not met Short term goal 2: Pt to begin core strengthening exercises for improved lumbar stability. 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 []Met []Partially met []Not met senior living goal 2: Pt to report central low back pain no greater than 2/10 with ADL's and housekeeping tasks. []Met []Partially met []Not met senior living goal 3: Pt to demonstrate 4 to 4+/5 strength bilateral hip ER and equal hip IR ROM to assist in proper gait and functional activities. []Met []Partially met []Not met [employer] goal 4: Pt to have little to no pain with central PA mobs to lumbar spine and palpation to lumbar paraspinals. []Met []Partially met []Not met [employer] goal 5: Pt to maintain full plank position for 30 seconds indicating improved core strength and lumbar stability. []Met []Partially met []Not met Minutes Tracking: Time In: 831 Time Out: 934 Minutes: 63 Timed Code Treatment Minutes: 60 Minutes Cherelle Villeda PT, DPT Date: 12/15/2019 documented in this encounter* Steph Cannon, PT - 12/22/2019 10:30 AM EST [facility] Outpatient Physical Therapy Daily Note Patient: Rima Alves : 1950 [facility] #: [id number] Referring Practitioner: Jesse Deluca MD Referral Date : 07/31/19 Date: 12/22/2019 Diagnosis: Back pain Treatment Diagnosis: low back pain Onset Date: 07/22/19 PT Insurance Information: [facility] [employer] Total # of Visits Approved: 18 Per Physician Order Total # of Visits to Date: 7 No Show: 0 Canceled Appointment: 0 Pre-Treatment Pain: 2/10 Subjective: Reports overall, 50% improvement since starting PT. Pain is easier to ease up in the mornings. Did have a bad weekend but also had to shovel snow off driveway. Exercises: Exercise 2: bike 10mins, hills lv 3.5 Exercise 3: standing abd press - 5 sec 15x Exercise 4: cable column pull down 4pl, chest 5 pl 15x Exercise 5: HS stretch at step - 20sec 5x Manual: Joint mobilization: right hip for IR ROM Manual traction: right single leg Soft Tissue Mobalization: STM to bilateral lower lumbar paraspinals and R QL - not today Modalities: Moist heat: 15 mins supine Assessment Assessment: Pt presents with limited right hip IR this date and 4-/5 ER strength. Hip ROM equal right vs left following manual therapy; right hip ER strength 4- to 4/5. Will continue to progress as pt tolerates. Patient Education Patient Education: continue HEP Pt verbalized/demonstrated good understanding: [x] Yes [] No, pt required further clarification. Post Treatment Pain: 1/10 Plan Times per week: 2 Plan weeks: 6 Goals (Total # of Visits to Date: 7) Short Term Goals - Time Frame for Short term goals: 3 weeks Short term goal 1: Pt to be instructed in home program. - met []Met []Partially met []Not met Short term goal 2: Pt to begin core strengthening exercises for improved lumbar stability. 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 []Met []Partially met []Not met exterminator termite goal 2: Pt to report central low back pain no greater than 2/10 with ADL's and housekeeping tasks. []Met []Partially met []Not met senior living goal 3: Pt to demonstrate 4 to 4+/5 strength bilateral hip ER and equal hip IR ROM to assist in proper gait and functional activities. []Met []Partially met []Not met senior living goal 4: Pt to have little to no pain with central PA mobs to lumbar spine and palpation to lumbar paraspinals. []Met []Partially met []Not met exterminator termite goal 5: Pt to maintain full plank position for 30 seconds indicating improved core strength and lumbar stability. []Met []Partially met []Not met Minutes Tracking: Time In: 1026 Time Out: 1131 Minutes: 65 Timed Code Treatment Minutes: 48 Minutes Steph Cannon PT, DPT, CMPT Date: 12/22/2019 documented in this encounter* Steph Cannon PT - 12/29/2019 11:45 AM EDT [facility] Outpatient Physical Therapy Daily Note Patient: Rima Alves : 1950 CSN #: [id number] Referring Practitioner: Jesse Deluca MD Referral Date : 07/31/19 Date: 12/29/2019 Diagnosis: Back pain Treatment Diagnosis: low back pain Onset Date: 07/22/19 PT Insurance Information: [facility] [employer] Total # of Visits Approved: 18 Per Physician Order Total # of Visits to Date: 9 No Show: 0 Canceled Appointment: 0 Pre-Treatment Pain: 3/10 Subjective: Pt states she went to a festival on Sunday and had quite a bit of pain yesterday. States pain was about 7/10 at worst. Doing exercises at home. Pain only about 3/10 upon arrival. Exercises: Exercise 2: bike 10mins, hills lv 3.5 Exercise 3: standing abd press - 5 sec 15x Exercise 4: cable column pull down 4 1/2, 5pl, chest 5 1/2 pl 15x Exercise 6: PB rollouts 10x10 hold Exercise 8: palloff press - blue 15x Modalities: Moist heat: 15 mins supine Assessment Assessment: Pt without complaints of pain following exercises. Held manual therapy this date; will monitor response. Patient Education Patient Education: continue HEP; palloff press for HEP Pt verbalized/demonstrated good understanding: [x] Yes [] No, pt required further clarification. Post Treatment Pain: 0/10 Plan Times per week: 2 Plan weeks: 6 Goals (Total # of Visits to Date: 9) Short Term Goals - Time Frame for Short term goals: 3 weeks Short term goal 1: Pt to be instructed in home program. - met []Met []Partially met []Not met Short term goal 2: Pt to begin core strengthening exercises for improved lumbar stability. - met []Met []Partially met []Not met []Met []Partially met []Not met []Met []Partially met []Not met Senior Living Goals - Time Frame for exterminator termite goals : 6 weeks exterminator termite goal 1: Pt to report independence and compliance with home program. []Met []Partially met []Not met exterminator termite goal 2: Pt to report central low back pain no greater than 2/10 with ADL's and housekeeping tasks. []Met []Partially met []Not met senior living goal 3: Pt to demonstrate 4 to 4+/5 strength bilateral hip ER and equal hip IR ROM to assist in proper gait and functional activities. []Met []Partially met []Not met exterminator termite goal 4: Pt to have little to no pain with central PA mobs to lumbar spine and palpation to lumbar paraspinals. []Met []Partially met []Not met senior living goal 5: Pt to maintain full plank position for 30 seconds indicating improved core strength and lumbar stability. []Met []Partially met []Not met Minutes Tracking: Time In: 1148 Time Out: 1251 Minutes: 63 Timed Code Treatment Minutes: 50 Minutes Steph Cannon PT, DPT, CMPT Date: 12/29/2019 documented in this encounter* Cherelle Villeda, PT - 01/05/2020 9:45 AM EDT [facility] Outpatient Physical Therapy Daily Note Patient: Rima Alves : 1950 [facility] #: [id number] Referring Practitioner: Jesse Deluca MD Referral Date : 07/31/19 Date: 01/05/2020 Diagnosis: Back pain Treatment Diagnosis: low back pain Onset Date: 07/22/19 PT Insurance Information: [facility] [employer] Total # of Visits Approved: 18 Per Physician Order Total # of Visits to Date: 11 No Show: 0 Canceled Appointment: 0 Pre-Treatment Pain: 5/10 Subjective: Pt states she cleaned her floor over the weekend and played [employer] yesterday, so is more sore today, with pain level 5/10 upon arrival this date. Exercises: Exercise 2: bike 10mins, hills lv 3.5 Exercise 3: standing abd press - 5 sec 15x Exercise 5: HS stretch at step - 20sec 5x Exercise 6: PB rollouts 10x10 hold Exercise 8: palloff press - blue 15x Manual: Soft Tissue Mobalization: STM to bilateral lower lumbar paraspinals Modalities: Moist heat: 15 mins supine Assessment Assessment: Modified ther ex program this date d/t increased pain levels this date. STM performed to bilateral lumbar paraspinals, which pt is more TTP long L-sided paraspinals this date. Resumed MHPat end of tx to assist with relaxation and decreasing pain. Will progress as tolerated. Patient Education Instructed in modifications to exercise program this date. Pt verbalized/demonstrated good understanding: [x] Yes [] No, pt required further clarification. Post Treatment Pain: 4/10 Plan Times per week: 2 Plan weeks: 6 Goals (Total # of Visits to Date: 11) Short Term Goals - Time Frame for Short term goals: 3 weeks Short term goal 1: Pt to be instructed in home program. - met []Met []Partially met []Not met Short term goal 2: Pt to begin core strengthening exercises for improved lumbar stability. - met []Met []Partially met []Not met []Met []Partially met []Not met []Met []Partially met []Not met Brewer Helper Goals - Time Frame for exterminator termite goals : 6 weeks exterminator termite goal 1: Pt to report independence and compliance with home program. []Met []Partially met []Not met exterminator termite goal 2: Pt to report central low back pain no greater than 2/10 with ADL's and housekeeping tasks. []Met []Partially met []Not met senior living goal 3: Pt to demonstrate 4 to 4+/5 strength bilateral hip ER and equal hip IR ROM to assist in proper gait and functional activities. []Met []Partially met []Not met senior living goal 4: Pt to have little to no pain with central PA mobs to lumbar spine and palpation to lumbar paraspinals. []Met []Partially met []Not met exterminator termite goal 5: Pt to maintain full plank position for 30 seconds indicating improved core strength and lumbar stability. []Met []Partially met []Not met Minutes Tracking: Time In: 0950 Time Out: 1052 Minutes: 62 Timed Code Treatment Minutes: 60 Minutes Cherelle Villeda PT, DPT Date: 01/05/2020 documented in this encounter* Cherelle Villeda, PT - 01/02/2020 3:30 PM EDT [facility] Outpatient Physical Therapy Daily Note Patient: Rima Alves : 1950 CSN #: [id number] Referring Practitioner: Jesse Deluca MD Referral Date : 07/31/19 Date: 01/02/2020 Diagnosis: Back pain Treatment Diagnosis: low back pain Onset Date: 07/22/19 PT Insurance Information: [facility] [employer] Total # of Visits Approved: 18 Per Physician Order Total # of Visits to Date: 10 No Show: 0 Canceled Appointment: 0 Pre-Treatment Pain: 2/10 Subjective: Pt states she did a lot yesterday and is a little more sore today, but pain is still minimal ~2/10. Pt states she felt good after last therapy session. Exercises: Exercise 2: bike 10mins, hills lv 3.5 Exercise 3: standing abd press - 5 sec 15x Exercise 4: cable column pull down 4 1/2, 5pl, chest 5 1/2 pl 15x Exercise 5: HS stretch at step - 20sec 5x Exercise 6: PB rollouts 10x10 hold Exercise 7: side stepping at counter - 3x green Exercise 8: palloff press - blue 15x Exercise 9: Joystick x10ea direction Assessment Assessment: Cont to progress functional strength this date within pt tolerance. Pt requires occasional VC to improve form throughout tx. Pt denies need for modalities at end of tx this date. Will progress as tolerated. Patient Education Instructed in exercise progression. Pt verbalized/demonstrated good understanding: [x] Yes [] No, pt required further clarification. Post Treatment Pain: 1-2/10 Plan Times per week: 2 Plan weeks: 6 Goals (Total # of Visits to Date: 10) Short Term Goals - Time Frame for Short term goals: 3 weeks Short term goal 1: Pt to be instructed in home program. - met []Met []Partially met []Not met Short term goal 2: Pt to begin core strengthening exercises for improved lumbar stability. - met []Met []Partially met []Not met []Met []Partially met []Not met []Met []Partially met []Not met Senior Living Goals - senior living goal 1: Pt to report independence and compliance with home program. []Met []Partially met []Not met senior living goal 2: Pt to report central low back pain no greater than 2/10 with ADL's and housekeeping tasks. []Met []Partially met []Not met exterminator termite goal 3: Pt to demonstrate 4 to 4+/5 strength bilateral hip ER and equal hip IR ROM to assist in proper gait and functional activities. []Met []Partially met []Not met senior living goal 4: Pt to have little to no pain with central PA mobs to lumbar spine and palpation to lumbar paraspinals. []Met []Partially met []Not met exterminator termite goal 5: Pt to maintain full plank position for 30 seconds indicating improved core strength and lumbar stability. []Met []Partially met []Not met Minutes Tracking: Time In: 1530 Time Out: 1620 Minutes: 50 Timed Code Treatment Minutes: 45 Minutes Cherelle Villeda PT, DPT Date: 01/02/2020 documented in this encounter* Tammy Valle - 01/19/2020 9:15 AM EDT [facility] Inpatient/Observation/Outpatient Rehabilitation Date: 01/19/2020 Patient Name: Rima Alves [] Inpatient Acute/Observation [x] Outpatient : 1950 [] Pt no showed for scheduled appointment [] Pt refused/declined therapy at this time due to: [x] Pt cancelled due to: [] No Reason Given [] Sick/ill [x] Other: Pt canceled dur to FEDERICO Valle Date: 01/19/2020 documented in this encounter Advance Directives No Advanced Directives Records FoundDocuments on File Type Date Recorded Patient Strategic Analyst Expl anation Advance Directives and Living Will Power of Count Team Clerk Advance Directive Response Recorded Date/ Time Advance Directives No March 02 0 3:38pm Advance Directive Response Recorded Date/ Time Advance Directives No March 02 0 2:38pm Summary Purpose Family History No Family History Records Found Relationship Condition Age at Onset Recorded Date/T dax Not Specified Morbid obesity Unknown Current smoker Unknown Chronic obstructive pulmonary disease Unk nown Unknown Malignant neoplasm of ovary Unknown father Unknown Pulmonary emphysema Unknown sister Posttraumatic stress disorder Unknown Schizophrenia Unknown Family history of thyroid disease Unknown sister Idiopathic pulmonary fibrosis Unknown Relationship Condition Age at Onset Recorded Date/T dax Not Specified Malignant neoplasm of ovary Unknown Morbid obesity Unknown Unknown Chronic obstructive pulmonary disease Unk nown Current smoker Unknown father Pulmonary emphysema Unknown sister Posttraumatic stress disorder Unknown Schizophrenia Unknown Family history of thyroid disease Unknown sister Idiopathic pulmonary fibrosis Unknown Relationship Condition Age at Onset Recorded Date/T dax Not Specified Malignant neoplasm of ovary Unknown Morbid obesity Unknown Unknown Chronic obstructive pulmonary disease Unk nown Current smoker Unknown father Pulmonary emphysema Unknown sister Posttraumatic stress disorder Unknown Schizophrenia Unknown Family history of thyroid disease Unknown sister Idiopathic pulmonary fibrosis Unknown father Family history of emphysema Unknown grandparent Unknown Malignant neoplasm Unknown Not Specified Chronic obstructive pulmonary disease Un known Diabetes mellitus Unknown Hypertension Unknown Hospital Course * Cherelle Villeda, PT - 01/21/2020 9:45 AM EDT [facility] Outpatient Physical Therapy Discharge Summary Patient: Rima Alves : 1950 CSN #: [id number] Referring physician: No admitting provider for patient encounter. Referring Practitioner: Jesse Deluca MD Diagnosis: Back pain Date Treatment Initiated: 12/02/2019 Date of Last Treatment: 01/05/2020 PT Visit Information Onset Date: 07/22/19 PT Insurance Information: [facility] [employer] Total # of Visits Approved: 18 Total # of Visits to Date: 11 Plan of Care/Certification Expiration Date: 01/13/20 No Show: 0 Canceled Appointment: 2 Frequency/Duration 2 times per week 6 weeks Treatment Received [x] HP/CP [x] Electrical Stim [x] Therapeutic Exercise [] Gait Training [] Aquatics [] Ultrasound [x] Patient Education/HEP [x] Manual Therapy [] Traction [] Neuro-mejia [x] Soft Tissue Mobs [] Home TENS [] Iontophoresis [] Orthotic casting/fitting [x] Dry Needling Assessment Pt has completed 11 PT visits to date. Pt called clinic on 01/19/2020 to cancel remaining visits d/tCovid-19 pandemic. PT called pt 01/21/2020 to follow up with pt in regards to D/C from PT, which pt is requesting D/C at this time. Informed pt that if/when returning to PT, will need new order from MD. Pt reports understanding. Will now D/C from PT. Goals Short term goals Time Frame for Short term goals: 3 weeks Short term goal 1: Pt to be instructed in home program. - met Short term goal 2: Pt to begin core strengthening exercises for improved lumbar stability. - met senior living goals Time Frame for senior living goals : 6 weeks senior living goal 1: Pt to report independence and compliance with home program. senior living goal 2: Pt to report central low back pain no greater than 2/10 with ADL's and housekeeping tasks. 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 senior living goal 4: Pt to have little to no pain with central PA mobs to lumbar spine and palpation to lumbar paraspinals. exterminator termite goal 5: Pt to maintain full plank position for 30 seconds indicating improved core strength and lumbar stability. Reason for Discharge [] Goals Achieved [] Poor Follow Through/Attendance [] Optimal Function Achieved [x] Patient Discharged Self [] Hospitalization [] Physician discharge Thank you for this referral Cherelle Villeda PT, DPT Date: 01/21/2020 documented in this encounter Chief Complaint and Reason for Visit Chief Complaint d32.9 Chief Complaint d32.9 m47.26 Chief Complaint d32.9 m47.26 m43.16 Chief Complaint d32.9 m47.26 m43.16 z78.0 Chief Complaint d32.9 m47.26 m43.16 z78.0 Spondylolisthesis Spondylolisthesis Chief Complaint d32.9 m47.26 m43.16 z78.0 Spondylolisthesis Spondylolisthesis Spondylolisthesis Chief Complaint sponylothisis Chief Complaint sponylothisis sponylothisis Reason for Visit Spondylolisthesis, l umbar region Chief Complaint sponylothisis sponylothisis m43.16 Reason for Visit Spondylolisthesis, l umbar region Chief Complaint m43.16 Chief Complaint m43.16 1 YR PO LUMBAR FUSION W/X-RAY Additional Source Comments INFORMATION SOURCE (unrecogn ized section and content) DATE CREATED AUTHOR 01/21/2020 [facility] DATE CREATED AUTHOR AUTHOR'S ORGANIZ ATION 09/23/2022 [facility] DATE CREATED AUTHOR AUTHOR'S ORGANIZ ATION 01/08/2024 [facility] DATE CREATED AUTHOR AUTHOR'S ORGANIZ ATION 02/25/2024 [facility] EPIC REASON FOR VISIT (unrecogniz ed section and content) BLUE FIGUEROA PATY, SINUS JOLEEN ESTIN, COUGHyrly f/u meningioma w/mriLow Back Pain, Pain Down Legs, Mainly RightCancel Appointment Requestupdate h&p and consentPlif L3- 4, L4-51 mo po plif /xray7 month po Care Teams (unrecognized sec tion and content) Team Status: Inactive Member Role Status Dates Jesse Deluca MD Primary Care Provider, Attending Pro vider Active Team Status: Inactive Member Role Status Dates Jesse Deluca MD Primary Care Provider Active Aki Garcia MD Attending Provider Active Team Status: Active Member Role Status Dates Jesse Deluca MD Primary Care Provider Active Team Status: Inactive Member Role Status Dates Jesse Deluca MD Primary Care Provider Active Aki Garcia MD Admit Provider, Attending Provider A ctive Team Status: Inactive Member Role Status Dates Jesse Deluca MD Primary Care Provider Active S tart: January 07, 2024 End: January 07, 2024 Aki Garcia MD Attending Provider Active Star t: January 07, 2024 End: January 07, 2024 Team Status: Inactive Member Role Status Dates Jesse Deluca MD Primary Care Provider Active S tart: January 17, 2024 End: January 17, 2024 Aki Garcia MD Attending Provider Active Star t: January 17, 2024 End: January 17, 2024 Goals (unrecognized section and content) Goals may be documented in a n alternate section FOR RECORDS PERTAINING TO PATIENTS WHO ARE OR HAVE BEEN ENROLLED IN A CHEMICAL DEPENDENCY/SUBSTANCEABUSE PROGRAM, SOME INFORMATION MAY BE OMITTED. This clinical summary was aggregated from multiple sources. Caution should be exercised in using it in the provision of clinical care. This summary normalizes information from multiple sources, and as a consequence, information in this document may materially change the coding, format and clinical context of patient data. In addition, data may be omitted in some cases. CLINICAL DECISIONS SHOULD BE BASED ON THE PRIMARY CLINICAL RECORDS. [employer] provides no warranty or guarantee of the accuracy or completeness of information in this document.
[2024-02-27 09:38] LABS: Estimated Average Glucose 120 mg/dL; Glycohemoglobin A1C 5.8 % (4.5-6.2)
[2024-02-27 10:40] LABS: Alanine Aminotransferase 26 U/L (14-59); Albumin Level 3.5 g/dL (3.4-5.0); Alkaline Phosphatase 102 U/L (46-116); Aspartate Amino Transferase 18 U/L (15-37); BUN Creatinine Ratio 18.4; Bilirubin Direct 0.1 mg/dL (0.0-0.2); Bilirubin Total 0.4 mg/dL (0.2-1.0); Calcium 9.2 mg/dL (8.5-10.1); Carbon Dioxide 27.3 mmol/L (21.0-32.0); Chloride 105 mmol/L (98-107); Chol HDL Ratio 4.5; Cholesterol 161 mg/dL (<=200); Estimated GFR (African America >60 (>=60); Estimated GFR (Non-African Ame 56 (>=60); Globulin 3.4 g/dL; Glucose 102 mg/dL (74-106); HDL Cholesterol 36 mg/dL (40-60); Potassium 4.3 mmol/L (3.5-5.1); Sodium 141 mmol/L (136-145); Thyroid Stimulating Hormone 2.408 uIU/mL (0.358-3.740); Total Protein 6.9 g/dL (6.4-8.2); Triglycerides 227 mg/dL (<=150); VLDL CHOLESTEROL 45.4 mg/dL
[2024-02-27 10:42] LABS: Basophils Percent Auto 0.5 % (0.2-2.0); Eosinophils Absolute Auto 0.2 10^3/uL (0.0-0.7); Eosinophils Percent Auto 2.9 % (0.9-7.0); Hematocrit 36.5 % (36.0-48.0); Hemoglobin 11.6 g/dL (12.0-16.0); Immature Granulocytes Abs Auto 0.02 10^3/uL (0.00-0.03); Immature Granulocytes Pct Auto 0.3 % (0.0-0.5); Lymphocytes Absolute Auto 1.3 10^3/uL (1.2-3.8); Lymphocytes Percent Auto 22.4 % (20.5-60.0); Mean Corpuscular HGB Conc 31.8 g/dL (29.9-35.2); Mean Corpuscular Hemoglobin 30.7 pg (26.7-34.0); Mean Corpuscular Volume 96.6 fL (81.0-99.0); Mean Platelet Volume 11.2 fL (9.5-13.5); Monocytes Absolute Auto 0.6 10^3/uL (0.3-0.8); Monocytes Percent Auto 9.8 % (1.7-12.0); Neutrophils Absolute Auto 3.8 10^3/uL (1.4-6.5); Neutrophils Percent Auto 64.1 % (43.0-75.0); Platelet Count 252 10^3/uL (150-450); Red Blood Count 3.78 10^6/uL (4.20-5.40); Red Cell Distribution Width 11.9 % (11.0-15.0); White Blood Count 5.9 10^3/uL (4.0-11.0)
== END 2024-02-27 08:55 | disposition home or self-care (01) ==
LOC: LAB 08:56
PROVIDERS: PCP Family Medicine; Visit Provider Family Medicine
DX: R73.03 Prediabetes (principal); I10 Essential (primary) hypertension; Z79.899 Other long term (current) drug therapy; E78.5 Hyperlipidemia, unspecified; E66.9 Obesity, unspecified
CPT/HCPCS: 36415; 80048; 80061; 80076; 83036; 84443; 85025

== ENCOUNTER 2024-02-29 11:50 | Outpatient (OUT) | payer MEDICARE, SELFPAY ==
--- NOTE | 2024-02-29 12:01 | XR_ITS ---
The [address] [address] Patient Name: VIRY BAILEY MRN: [id number] date: 1950 Sex: F Assigned Patient Location: [facility] Current Patient Location: LAB Accession/Order Number: [id number] Exam Date: 02/29/2024 12:05 Report Date: 03/02/2024 05:31 At the request of: JUVENAL RUSSO Procedure: XR hip RT min 2V PROCEDURE: XR hip RT min 2V HISTORY: Trochanteric bursitis of right hip M70.61 ; chronic right hip pain; no known injury COMPARISON: None. FINDINGS: BONES:Small degenerative osteophyte along superior rim of acetabulum. No fracture, dislocation, or significant joint space narrowing. SOFT TISSUES:No visible soft tissue swelling. EFFUSION:None visible. OTHER: Negative. XR/XR hip RT min 2V IMPRESSION: 1. Mild degenerative joint disease. 2. No acute bone abnormality. Electronically authenticated by: FRANK MEDINA Date: 03/02/2024 05:31
== END 2024-02-29 11:51 | disposition home or self-care (01) ==
LOC: RAD 11:54
PROVIDERS: PCP Family Medicine; Visit Provider Pain Medicine Interventional Pain Medicine
DX: M70.61 Trochanteric bursitis, right hip (principal); M16.11 Unilateral primary osteoarthritis, right hip
CPT/HCPCS: 73502

== ENCOUNTER 2024-09-01 09:04 | Outpatient (OUT) | payer MEDICARE, SELFPAY ==
--- NOTE | 2024-09-01 | MM_ITS ---
Patient Name: VIRY BAILEY MR#: [id number] : 1950 Exam Date: 09/01/2024 Ordering Doctor: DR Jesse Still . RADIOLOGY REPORT PROCEDURE: MM TOMOSYNTHESIS SCREENING BI COMPARISON: MG MAMM SCREEN 3D [place] CAD, 08/10/2021. MM TOMOSYNTHESIS SCREENING BI, 08/29/2023. INDICATIONS: SCREENING Calculator Name NCI Breast Cancer Risk Assessment Tool 5 Year Breast Cancer Risk 2.10% Lifetime Breast Cancer Risk 5.90% Personal Breast Cancer No Personal Ovarian Cancer No Treatments None Family Cancers None LOCATION: [facility] BREAST COMPOSITION: There are scattered areas of fibroglandular density. FINDINGS: DIAGNOSTIC CATEGORY 2--BENIGN FINDING. NO CHANGE FROM COMPARISON. Scattered benign-appearing nodules are present. Scattered benign-appearing calcifications are present. Scattered benign-appearing lymph nodes are present. RIGHT BREAST: No significant suspicious finding. Linear scar marker LEFT BREAST: No significant suspicious finding. RECOMMENDATIONS: ROUTINE MAMMOGRAM AND CLINICAL EVALUATION IN 12 MONTHS. PLEASE NOTE: A NORMAL MAMMOGRAM DOES NOT EXCLUDE THE POSSIBILITY OF BREAST CANCER. A CLINICALLY SUSPICIOUS PALPABLE LUMP SHOULD BE BIOPSIED. Dictated by: Baltazar Castañeda MD on 09/01/2024 at 11:44 Approved by: Baltazar Castañeda MD on 09/01/2024 at 11:47
== END 2024-09-01 09:05 | disposition home or self-care (01) ==
LOC: MAMMO 09:04
PROVIDERS: PCP Family Medicine; Visit Provider Family Medicine
DX: Z12.31 Encounter for screening mammogram for malignant neoplasm of breast (principal)
CPT/HCPCS: 77063; 77067

== ENCOUNTER 2025-03-02 09:46 | Outpatient (OUT) | payer MEDICARE, SELFPAY ==
[2025-03-02 10:14] LABS: Basophils Percent Auto 0.6 % (0.2-2.0); Eosinophils Absolute Auto 0.2 10^3/uL (0.0-0.7); Eosinophils Percent Auto 2.9 % (0.9-7.0); Hemoglobin 11.8 g/dL (12.0-16.0); Immature Granulocytes Abs Auto 0.01 10^3/uL (0.00-0.03); Immature Granulocytes Pct Auto 0.2 % (0.0-0.5); Lymphocytes Absolute Auto 1.7 10^3/uL (1.2-3.8); Lymphocytes Percent Auto 27.6 % (20.5-60.0); Mean Corpuscular HGB Conc 32.8 g/dL (29.9-35.2); Mean Corpuscular Hemoglobin 31.7 pg (26.7-34.0); Mean Corpuscular Volume 96.8 fL (81.0-99.0); Mean Platelet Volume 10.8 fL (9.5-13.5); Monocytes Absolute Auto 0.6 10^3/uL (0.3-0.8); Monocytes Percent Auto 8.7 % (1.7-12.0); Neutrophils Absolute Auto 3.8 10^3/uL (1.4-6.5); Platelet Count 250 10^3/uL (150-450); Red Blood Count 3.72 10^6/uL (4.20-5.40); Red Cell Distribution Width 11.9 % (11.0-15.0); White Blood Count 6.3 10^3/uL (4.0-11.0)
--- OUTSIDE RECORDS SUMMARY | 2025-03-02 10:19 | XMS_ITS | CCD ---
Author Organization [facility] ion [facility] Care Team Providers Care Multimedia Instructional Designer Name Role Phone Jesse Deluca Primary Care Provider [phone] JESSE DELUCA Referring Unavailabl e NADERER, JESSE TRAN Primary Care Unavailabl e NADERER, JESSE TRAN Referring Unavailabl e NADERER, JESSE TRAN Primary Care Unavailabl e NADERER, JESSE TRAN Referring Unavailabl e NADERER, JESSE NURONY Primary Care Unavailabl e NADERER, JESSE TRAN Referring Unavailabl e NADERER, JESSE NURONY Primary Care Unavailabl e NADERER, JESSE TRAN Referring Unavailabl e NADERER, JESSE [facility] Primary Care Unavailabl e NADERER, JESSE NURONY Referring Unavailabl e NADERER, JESSE MARC Primary Care Unavailabl e NADERER, JESSE NURONY Referring Unavailabl e NADERER, JESSE NURONY Primary Care Unavailabl e NADERER, JESSE NURONY Referring Unavailabl e NADERER, JESSE MARC Primary Care Unavailabl e NADERER, JESSE TRAN Referring Unavailabl e NADERER, JESSE MARC Primary Care Unavailabl e NADERER, JESSE TRAN Referring Unavailabl e NADERER, JESSE MARC Primary Care Unavailabl e NADERER, JESSE TRAN Referring Unavailabl e NADERER, JESSE MARC Primary Care Unavailabl e Woody, Marla Unavailable MD Jesse Deluca Primary Care Provider MD Aki Garcia Attending Provider Aki Garcia Unavailable MD Jesse Deluca Attending Provider MD Jesse Deluca Primary Care Provider [phone] MD Aki Garcia Attending Provider MD Jesse Deluca Attending Provider MD Aki Garcia Admit Provider YOSI, DR JESSE Roland Consulting Unavailable KURTISERER, DR JESSE Roland Primary Care Unavailable NADERER, DR JESSE Roland Admitting Unavailable NADEREMiguel, DR JESSE Roland Attending Unavailable NADERER, DR JESSE Roland Primary Care Unavailable NADERER, DR JESSE Roland Admitting Unavailable NADEREMiguel, DR JESSE Roland Attending Unavailable YOSI, DR JESSE Roland Consulting Unavailable MD Jesse Deluca Primary Care Provider [phone] MD Aki Garcia Attending Provider MD Aki Garcia Admit Provider MD Jesse Deluca Primary Care Provider MD Aki Garcia Attending Provider MD Aki Garcia Admit Provider MD Jesse Deluca Primary Care Provider MD Aki Garcia Attending Provider MD Jesse Deluca Primary Care Provider MD Aki Garcia Attending Provider Jesse Deluca MD Primary Care Provider Jesse Deluca MD Primary Care Provider Aki Garcia MD Attending Provider [phone] Aki Garcia Admitting Unavailable Aki Garcia Attending Unavailable Jesse Deluca Primary Care Unavailable Aki Garcia Attending Unavailable Jesse Deluca Primary Care Unavailable Aki Garcia Admitting Unavailable JESSE DELUCA Attending Unavailable MICHA FOWLER Attending Unavailable MICHA FOWLER Referring Unavailable MICHA FOWLER Attending Unavailable JESSE DELUCA Attending Unavailable Medications Current Medications Medication Drug Class(es) Dates Sig (Normalized) Sig (Original) 8 hr acetaminophen 650 mg extended release oral tablet (11 sources) Start: 07-31-2022 take 2 tablets by mouth once daily in the morning as needed for pain Acetaminophen 650 mg Tablet Extended Release Active 1300 MG PO Every morning as needed for Pain July 31, 2022 12:00am Start: 07-31-2022 take 1300 mg by mout h once daily in the morning Acetaminophen Active 1300 MG PO Every morning July 31, 2022 12:00am [id number] 200 actuat albuterol 0.09 mg/actuat metered dose [...] Jan, Active atorvastatin 80 mg oral tablet (20 sources) HMG-CoA Reductase Inhibitor Start: 07-31-2022 take 1 tablet by mouth once daily at bedtime atorvastatin (Lipitor) 80 MG tablet Indications: Hyperlipidemia, unspecified (CMS/HCC) TAKE 1 TABLET BY MOUTH EVERYDAY AT BEDTIME 90 tablet 3 08/25/2024 Active cholecalciferol 0.025 mg chewable tablet (4 sources) Vitamin D Start: 01-17-2024 take 1 tablet by mouth once daily Cholecalciferol (Vitamin D3) (Vitamin D3) 25 mcg (1,000 unit) tablet,chewable Active 25 MCG PO Daily January 17, 2024 12:00am dextromethorphan hydrobromide 1.5 mg/ml / pyrilamine maleate 1.5 mg/ml oral solution (4 sources) Uncompetitive P-ctingu-A-asparta te Receptor Antagonist, Sigma-1 Agonist Start: 01-23-2022 take 10 mL by mouth every eight hours [place] DM 7.5-7.5 MG/5ML 10 mL Orally every 8 hours for 5 days Jan, Active diphenhydrAMINE hydrochloride 25 mg oral capsule (13 sources) Histamine-1 Receptor Antagonist Start: 12-12-2022 take 1 capsule by mouth every twenty-four hours diphenhydrAMINE HCl 25 MG 1 capsule at bedtime as needed Orally Once a day for 30 day(s) Nov, Active Start: 12-12-2022 End: 01-17-2024 take 1 tablet by mouth once daily in the morning as needed Diphenhydramine Hcl 25 mg Tablet Discontinued 25 MG PO Every morning as needed for Allergy Symptoms December 12, 2022 1:00am January 17, 2024 10:33am lisinopril 10 mg oral tablet (20 sources) Angiotensin Converting Enzyme Inhibitor Start: 12-12-2022 take 1 tablet by mouth once daily lisinopril 10 MG tablet Indications: Benign essential hypertension (CMS/HCC) TAKE 1 TABLET (10 MG) BY MOUTH DAILY. 90 tablet 12/01/2024 Active take 0.5 tablet by mouth once da caio Lisinopril 20 MG TAKE 1/2 TABLET BY MOUTH ONCE DAILY Oral for 30 Days Active melatonin 10 mg oral capsule (15 sources) Start: 12-12-2022 Melatonin 10 M G as directed Orally Nov, Active Start: 12-12-2022 Melatonin 10 M G as directed Orally Nov, Active Start: 07-31-2022 take 1 tablet by mouth at bedt dax Melatonin 10 mg Tablet Active 10 MG PO Bedtime July 31, 2022 12:00am meloxicam 7.5 mg oral tablet (20 sources) Nonsteroidal Anti-inflammatory Drug Start: 01-17-2024 take 1 tablet by mouth once daily meloxicam (Mobic) 7.5 MG tablet Indications: Lumbar spondylolysis TAKE 1 TABLET BY MOUTH EVERY DAY 30 tablet 5 09/24/2024 Active Start: 01-21-2015 End: 12-12-2022 take 1 tablet by mouth once daily Meloxicam 7.5 mg tablet Discontinued 7.5 MG PO Daily July 31, [...] TAB PO Daily July 30, 2022 11:00pm Multivitamin Tablet (3 sources) Start: 07-31-2022 take 1 tablet by mouth once daily Multivitamin Tablet Active 1 TAB PO Daily July 31, 2022 12:00am naproxen sodium 220 mg oral tablet (4 sources) Nonsteroidal Anti-inflammatory Drug take 1 tablet by mouth every twelve hours Aleve 220 MG 1 tablet Orally bid Active omeprazole 40 mg delayed release oral capsule (20 sources) Proton Pump Inhibitor Start: 02-23-2025 take 1 capsule by mouth once daily omeprazole (PriLOSEC) [address] capsule Indications: Chronic peptic ulcer, site unspecified, without hemorrhage or perforation , Chronic peptic ulcer TAKE 1 CAPSULE BY MOUTH EVERY DAY 90 capsule 1 02/23/2025 Active Start: 02-23-2025 take 1 capsule by mo [facility] once daily omeprazole (PriLOSEC) [address] capsule Indications: Chronic peptic ulcer, site unspecified, without hemorrhage or perforation , Chronic peptic ulcer TAKE 1 CAPSULE BY MOUTH EVERY DAY 90 capsule 1 02/23/2025 Active Start: 02-23-2025 take 1 capsule by [facility] once daily omeprazole (PriLOSEC) [address] capsule Indications: Chronic peptic ulcer, site unspecified, without hemorrhage or perforation , Chronic peptic ulcer TAKE 1 CAPSULE BY MOUTH EVERY DAY 90 capsule 1 02/23/2025 Active Start: 07-31-2022 take 1 capsule by mo [facility] once daily Omeprazole 40 mg capsule,delayed release(DR/EC) Active 40 MG PO Daily July 31, 2022 12:00am take 1 capsule by mo [facility] once daily Omeprazole 20 MG TAKE ONE CAPSULE BY MOUTH EVERY DAY Oral for 90 Active polyethylene glycol 3350 54780 mg powder for oral solution (2 sources) Osmotic Laxative take 17 g by mouth once polyethylene glycol, PEG, 3350 (Miralax) 17 g packet Take 17 g by mouth 1 (one) time Active predniSONE 10 mg oral tablet (20 sources) Start: 07-10-2024 End: 08-25-2024 predniSONE (Deltasone) 10 MG tablet Indications: 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 , Peripheral neuritis of right foot , Pain in right foot , Plantar fasciitis of right foot , Difficulty walking 1 tablet twice daily x 7 days; followed by 1 tablet daily as directed until complete 21 tablet 07/31/2024 08/25/2024 Discontinued Start: 12-26-2022 End: 01-17-2024 Prednisone 10 mg tablets,dos e pack Discontinued 1 dose pk PO per package directions December 26, 2022 1:00am January 17, 2024 10:34am take 4 tabs for 3 days then take 3 tabs for 3 days then take 2 tabs for 3 days then take 1 tab for 3 days Start: 12-26-2022 End: 01-17-2024 Prednisone Discontinued 1 do se pk PO per package directions December 26, [...] then take 1 tab for 3 days Vitamin D3 Gummy (9 sources) Start: 12-12-2022 take 2000 [IU] by [facility] once daily Vitamin D3 Gummy Active 2000 UNITS PO Daily December 12, 2022 1:00am Start: 12-12-2022 take 2000 [IU] by [facility] once daily Vitamin D3 Gummy Active 2000 UNITS PO Daily December 12, 2022 12:00am Completed/Discontinued Medications Medication Drug Class(es) Dates Sig (Normalized) Sig (Original) aspirin 81 mg chewable tablet (15 sources) Platelet Aggregation Inhibitor, Nonsteroidal Anti-inflammatory Drug Start: 07-31-2022 End: 12-12-2022 take 1 tablet by mouth once daily Aspirin 81 mg Tablet,Chewable Discontinued 81 MG PO Daily July 31, [...] TAB PO Daily July 30, 2022 11:00pm Calcium Carbonate-Vitamin D3 500 mg-5 mcg (200 unit) Tablet (3 sources) Start: 07-31-2022 End: 12-12-2022 take 1 tablet by mouth once daily Calcium Carbonate-Vitamin D3 500 mg-5 mcg (200 unit) Tablet Discontinued 1 TAB PO Daily July 31, 2022 12:00am December 12, 2022 2:46pm Elderberry Fruit And Flower (8 sources) Start: [...] 1:46pm Start: 07-31-2022 take 2 capsules by m out once daily Elderberry Fruit And Flower Active 2 CAP PO Daily July 30, 2022 11:00pm Elderberry Fruit And Flower 460-115 mg Capsule (3 sources) Start: 07-31-2022 End: 12-12-2022 take 1 capsule by mouth once daily Elderberry Fruit And Flower 460-115 mg Capsule Discontinued 2 CAP PO Daily July 31, 2022 12:00am December 12, 2022 2:46pm hydroCHLOROthiazide 25 mg oral tablet (15 sources) Thiazide Diuretic Start: 07-31-2022 End: 12-12-2022 Hydrochlorothiazide 25 mg tablet Discontinued 12.5 MG PO Daily July 31, 2022 12:00am December 12, 2022 2:46pm Start: 07-31-2022 End: 12-12-2022 take 12.5 mg by mouth once daily Hydrochlorothiazide Discontinued 12.5 MG PO Daily July 31, 2022 12:00am December 12, 2022 2:46pm take 1 tablet by fannie th once daily hydroCHLOROthiazide 12.5 MG take 1 tablet by mouth once daily Oral for 90 Active ibuprofen 200 mg oral capsule (11 sources) Nonsteroidal Anti-inflammatory Drug Start: 07-31-2022 End: 12-12-2022 Ibuprofen (Motrin Ib) 200 mg Capsule Discontinued 400 MG PO Every evening as needed for Pain July 31, 2022 12:00am December 12, 2022 2:45pm loratadine 10 mg oral tablet (15 sources) Start: 07-31-2022 End: 12-12-2022 take 1 tablet by mouth once daily Loratadine (Claritin) 10 mg Tablet Discontinued 10 MG PO Daily July 31, 2022 12:00am December 12, 2022 2:46pm metFORMIN hydrochloride 500 mg oral tablet (8 sources) Biguanide metFORMIN HCl 500 MG Oral *please review for potential _update for e-prescription and drug interaction check* Not-Taking oxyCODONE hydrochloride 5 mg oral tablet (8 sources) Opioid Agonist Start: 12-26-2022 End: 01-17-2024 take 5-10 mg by mouth every six hours as needed for pain Oxycodone 5 mg tablet Discontinued 5 - 10 MG PO Q6H as needed for Pain 40 December 26, 2022 January 17, 2024 10:34am sulfamethoxazole 800 mg / trimethoprim 160 mg oral tablet (8 sources) Dihydrofolate Reductase Inhibitor Antibacterial, Sulfonamide Antimicrobial Start: 12-26-2022 End: 01-17-2024 take 1 tablet by mouth every twelve hours Sulfamethoxazole -Trimethoprim (Bactrim Ds) 800-160 mg tablet Discontinued 1 TAB PO Q12H December 26, 2022 1:00am January 17, 2024 10:34am tiZANidine 4 mg oral capsule (8 sources) Central alpha-2 Adrenergic Agonist Start: 12-26-2022 End: 01-17-2024 take 1 capsule by mouth every eight hours as needed Tizanidine (Zanaflex) 4 mg capsule Discontinued 4 MG PO Q8H as needed for muscle spasticity 40 December 26, 2022 1:00am January 17, 2024 10:34am Problems Active Problems Problem Classification Problem Date Documented Date Episodic/Chronic Diabetes mellitus without complication (15 sources) Prediabetes; Translations: [Prediabetes] Onset: 08-05-2022 02-25-2024 Episodic Disorders of lipid metabolism (15 sources) Hyperlipidemia, unspecified; Translations: [Dyslipidemia] Onset: 08-05-2022 02-25-2024 Chronic Essential hypertension (20 sources) Essential (primary) hypertension; Translations: [Benign essential hypertension] Onset: 08-02-2022 Chronic Gastroduodenal ulcer (except hemorrhage) (14 sources) Chronic peptic ulcer; Translations: [Chronic peptic ulcer, site unspecified, without hemorrhage or perforation] Onset: 02-25-2024 02-25-2024 Chronic Menopausal disorders (12 sources) Atrophy of vagina; Translations: [Postmenopausal atrophic vaginitis] Onset: 02-25-2024 02-25-2024 Chronic Osteoarthritis (12 sources) Osteoarthritis of left knee joint; Translations: [Unilateral primary osteoarthritis, left knee] Onset: 02-25-2024 02-25-2024 Chronic Other acquired deformities (16 sources) Lumbar spondylolisthesis; Translations: [Spondylolisthesis, lumbar region] 12-26-2022 Episodic Other acquired deformities (10 sources) Spondylolisthesis, lumbar region; Translations: [Acquired spondylolisthesis] Onset: 07-06-2022 Resolved: 07-06-2022 Episodic Other aftercare (1 source) Other half-way (current) drug therapy; Translations: [OTH JAIL CURRENT DRUG THERAPY] Onset: 08-05-2022 Episodic Other aftercare (14 sources) Long-term current use of drug therapy; Translations: [Other terminologist (current) drug therapy] Onset: 02-25-2024 02-25-2024 Episodic Other and unspecified benign neoplasm (10 sources) Neoplasm of meninges; 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, unspecified] 01-15-2025 Chronic Comment on above: left frontal Other and unspecified benign neoplasm (4 sources) Benign neoplasm of meninges, unspecified; Translations: [Benign neoplasm of cerebral meninges] Onset: 06-29-2022 Resolved: 06-29-2022 Chronic Other connective tissue disease (1 source) Arthrodesis status Episodic Other connective tissue disease (4 sources) Pain in right foot; Translations: [Pain in right foot] 07-31-2024 Episodic Other connective tissue disease (4 sources) Plantar fasciitis of right foot; Translations: [Plantar fascial fibromatosis] 07-31-2024 Episodic Other connective tissue disease (3 sources) Trochanteric bursitis; Translations: [Trochanteric bursitis, right hip] 01-18-2024 Episodic Other connective tissue disease (1 source) Trochanteric bursitis, right hip; Translations: [Enthesopathy of hip region] 01-15-2025 Episodic Other nervous system disorders (4 sources) Mortons neuroma of right foot; Translations: [Lesion of plantar nerve, right lower limb] 07-31-2024 Chronic Other nervous system disorders (4 sources) Right foot neuritis; Translations: [Unspecified mononeuropathy of right lower limb] 07-31-2024 Chronic Other nervous system disorders (4 sources) Difficulty walking; Translations: [Difficulty in walking, not elsewhere classified] 07-31-2024 Chronic Other nutritional; endocrine; and metabolic disorders (1 source) Obesity, unspecified; Translations: [OBESITY UNSPECIFIED] Onset: 08-05-2022 Chronic Other nutritional; endocrine; and metabolic disorders (14 sources) Body mass index 30+ - obesity; Translations: [Obesity, unspecified] Onset: 02-25-2024 02-25-2024 Chronic Other screening for suspected conditions (not mental disorders or infectious disease) (2 sources) Patient encounter status; Translations: [Encounter for screening mammogram for malignant neoplasm of breast] 08-25-2024 Episodic Other upper respiratory disease (14 sources) Allergic rhinitis due to pollen; Translations: [Allergic rhinitis due to pollen] Onset: 02-25-2024 02-25-2024 Chronic Residual codes; unclassified (2 sources) Asymptomatic menopausal state Onset: 07-06-2022 Resolved: 07-06-2022 Episodic Spondylosis; intervertebral disc disorders; other back problems (6 sources) Spinal stenosis, lumbar region with neurogenic claudication; Translations: [Radiculopathy, lumbar region] Onset: 07-06-2022 Resolved: 07-06-2022 Episodic Past or Other Problems Problem Classification Problem Date Documented Da te Episodic/Chronic Acute bronchitis (1 source) Acute bronchitis due to other specified organisms Onset: 01-23-2022 Resolved: 01-23-2022 Episodic Fluid and electrolyte disorders (16 sources) Hypokalemia; Translations: [Hypokalemia] Onset: 09-18-2022 Episodic Immunizations and screening for infectious disease (1 source) Contact with and (suspected) exposure to other viral communicable diseases Onset: 01-23-2022 Resolved: 01-23-2022 Episodic Mood disorders (2 sources) Mood disorders Onset: 02-23-2025 02-23-2025 Other acquired deformities (14 sources) Spondylolysis; Translations: [Spondylolysis, lumbar region] Onset: 09-24-2023 09-24-2023 Episodic Other and unspecified benign neoplasm (12 sources) Leiomyoma; Translations: [Benign neoplasm of connective and other soft tissue, unspecified] Onset: 02-25-2024 02-25-2024 Episodic Other bone disease and musculoskeletal deformities (12 sources) Osteopenia; Translations: [Other specified disorders of bone density and structure, other site] Onset: 02-25-2024 02-25-2024 Episodic Other non-traumatic joint disorders (12 sources) Chronic pain of left upper limb; Translations: [Pain in left shoulder] Onset: 02-25-2024 Resolved: 08-25-2024 02-25-2024 Episodic Spondylosis; intervertebral disc disorders; other back problems (12 sources) Lumbar spondylosis; Translations: [Other spondylosis with radiculopathy, lumbar region] Onset: 02-25-2024 Resolved: 02-25-2024 02-25-2024 Chronic Results Test Name Value Interpretation Reference Range Facility MR head/brain wo [facility] 02-02 MR head/brain wo [facility] [place] [address] MRI Report Signed Patient: Rima Alves MR#: [id number] : 1950 Acct:[id number] Age/Sex: 74 / F ADM Date: 02/02/25 Loc: [facility] Room: Type: [facility] Attending Dr: Aki Garcia MD Copies to: Aki Garcia MD Ordering Provider: Aki Garcia MD Date of Service: 02/02/25 MR/MR head/brain wo con: D32.9 - Benign neoplasm of meninges, unspecified EXAMINATION: MRI OF THE BRAIN WITHOUT CONTRAST CLINICAL HISTORY: Meningioma, follow-up COMPARISON: MRI brain 06/15/2022 TECHNIQUE: Multiecho, multiplanar imaging of the brain was performed without enhancement. FINDINGS: There is redemonstration of the left perisylvian/frontot emporal extra-axial meningioma measuring 1.8 x 1.3 x 1.9 cm in size. No restricted diffusion. Ventricles and sulci normal in size and configuration for the patient's age. No abnormal T2 FLAIR hyperintense signal identified within the supratentorial or infratentorial brain. Major intracranial arterial vascular flow voids are preserved. No abnormal GRE signal. Minor ethmoid sinus mucosal thickening. MR/MR head/brain wo con IMPRESSION: Stable examination. Impression dictated by: Francois Foster M.D.02/02/2025 4:22 PM Dictation Location: [place] [address] Transcribed By: [facility] 02/02/25 1622 Dictated By: Francois Foster MD 02/02/251614 Signed By: 02/02/25 1622 Normal [facility] Magnetic resonance imaging r eportOrdered By: Francois Foster on 02-02-2025 Study report [facility] [place] [address] MRI Report Signed Patient: Rima Alves MR#: [id number] : 1950 Acct:[id number] Age/Sex: 74 / F ADM Date: 5 Loc: [facility] Room: Type: [facility] Attending Dr: Aki Garcia MD Copies to: Aki Garcia MD~ Ordering Provider: Aki Garcia MD Date of Service: 02/02/25 MR/MR head/brain wo con: D32.9 - Benign neoplasm of meninges, unspecified EXAMINATION: MRI OF THE BRAIN WITHOUT CONTRAST CLINICAL HISTORY: Meningioma, follow-up COMPARISON: MRI brain 06/15/2022 TECHNIQUE: Multiecho, multiplanar imaging of the brain was performed without enhancement. FINDINGS: There is redemonstration of the left perisylvian/frontot emporal extra-axial meningioma measuring 1.8 x 1.3 x 1.9 cm in size. No restricted diffusion. Ventricles and sulci normal in size and configuration for the patient's age. No abnormal T2 FLAIR hyperintense signal identified within the supratentorial or infratentorial brain. Major intracranial arterial vascular flow voids are preserved. No abnormal GRE signal. Minor ethmoid sinusmucosal thickening. MR/MR head/brain wo con IMPRESSION: Stable examination. Impression dictated by: Francois Foster M.D.02/02/2025 4:22 PM Dictation Location: [facility]-29 Transcribed By: [facility] 02/02/25 162 Dictated By: Francois Foster MD 02/02/25 161 Signed By: 02/02/251621 [facility] Work Phone: X-ray reportOrdered By: Kostas Martin on 01-15-2025 Study report [facility] [place] [address] [place] [address] XRay Report Signed Patient: Rima Alves MR#: [id number] : 1950 Acct:[id number] Age/Sex: 74 / F ADM Date: 5 Loc: XD Room: Type: [facility] Attending Dr: Aki Garcia MD Copies to: Aki Garcia MD~ Ordering Provider: Aki Garcia MD Date of Service: 01/15/25 XR/XR lumbar spine 6V w bending: M43.16 - Spondylolisthesis, lumbar region LUMBAR SPINE - 6 views CLINICAL HISTORY: Follow-up lumbar fusion COMPARISON: Lumbar spine 01/07/2024 FINDINGS: Posterior hardware fixation L3-L5 without radiographic complication. No pathological motion. Vertebral body heights appear maintained. Limited sidebending. XR/XR lumbar spine 6V w bending IMPRESSION: NO EVIDENCE OF HARDWARE COMPLICATION. Impression dictated by: Carmelo Martin Jr., D.O.01/15/2025 6:31 PM Dictation Location: [facility]-18 Transcribed By: [facility] 01/15/25 1831 Dictated By: Carmelo Martin Jr, DO 01/15/251829 Signed By: 01/15/25 183 [facility] XR lumbar spine 6V w bending on 01-15-2025 XR lumbar spine 6V w bending [facility] [place] [address] [place], [place] [id number] XRay Report Signed Patient: Rima Alves MR#: [id number] : 1950 Acct:[id number] Age/Sex: 74 / F ADM Date: 01/15/25 Loc: XD Room: Type: [facility] Attending Dr: Aki Garcia MD Copies to: Aki Garcia MD Ordering Provider: Aki Garcia MD Date of Service: 01/15/25 XR/XR lumbar spine 6V w bending: M43.16 - Spondylolisthesis, lumbar region LUMBAR SPINE - 6 views CLINICAL HISTORY: Follow-up lumbar fusion COMPARISON: Lumbar spine 01/07/2024 FINDINGS: Posterior hardware fixation L3-L5 without radiographic complication. No pathological motion. Vertebral body heights appear maintained. Limited sidebending. XR/XR lumbar spine 6V w bending IMPRESSION: NO EVIDENCE OF HARDWARE COMPLICATION. Impression dictated by: Carmelo Martin Jr., D.OEnzo01/15/2025 6:31 PM Dictation Location: [facility] Transcribed By: [facility] 01/15/251830 Dictated By: Carmelo Martin Jr, DO 01/15/251829 Signed By: 01/15/251830 Normal [facility] XR Foot - right 3 [facility] Result: 3 views right foot: Weight-bearing: DP, oblique, lateral: 07/10/2024: Unremarkable for acute osseous or joint pathology. Unremarkable for fracture or stress fracture changes. Central MTP joints intact without DJD or AVN. Metatarsal parabola demonstrates structurally elongated 2nd metatarsal. HAV deformity, consistent with clinical findings. [facility] Radiology Study observation (narrative) [facility] Potassium [Moles/volume] in Serum or PlasmaOrdered By: Lester Yoder on 12-25-2022 Potassium [Moles/Vol] 3.6 mmol/L 3.5-5.1 [facility] Basophils Auto (Bld) [#/Vol] Ordered By: Aki Garcia on 12-12-2022 Basophils (Bld) [#/Vol] 0.1 10*3/uL 0.0-0.2 [facility] Basophils/100 WBC Auto (Bld) Ordered By: Aki Garcia on 12-12-2022 Basophils/100 WBC (Bld) 0.8 % . [facility] Creatinine and Glomerular fi ltration rate.predicted panel (S/P/Bld)Ordered By: Aki Garcia on 12-12-2022 Creatinine [Mass/Vol] 0.82 mg/dL 0.44-1.03 [facility] Eosinophils Auto (Bld) [#/Vo l]Ordered By: Aki Garcia on 12-12-2022 Eosinophils (Bld) [#/Vol] 0.1 10*3/uL 0.0-0.45 [facility] Eosinophils/100 WBC Auto (Bl d)Ordered By: Aki Garcia on 12-12-2022 Eosinophils/100 WBC (Bld) 1.9 % . [facility] Erythrocyte distribution wid th Auto (RBC) [Ratio]Ordered By: Aki Garcia on 12-12-2022 Erythrocyte distribution width (RBC) [Ratio] 12.6 % 11.9-15.3 [facility] Estimated glomerular filtrat ion rate (GFR) non- AmericanOrdered By: Aki Garcia on 12-12-2022 GFR/1.73 sq M.predicted among non-blacks MDRD (S/P/Bld) [Vol rate/Area] > 60 mL/Min [facility] Hematocrit Auto (Bld) [Volum e fraction]Ordered By: Aki Garcia on 12-12-2022 Hematocrit (Bld) [Volume fraction] 37.8 % 34.0-46.4 [facility] Hemoglobin [Mass/volume] in BloodOrdered By: Aki Garcia on 12-12-2022 Hemoglobin (Bld) [Mass/Vol] 12.5 g/dL 11.8-15.4 [facility] Leukocytes [#/volume] correc amy for nucleated erythrocytes in Blood by Automated counOrdered By: Aki Garcia on 12-12-2022 WBC corrected for nucl RBC Auto (Bld) [#/Vol] 6.4 10*3/uL 3.8-11.6 [facility] Lymphocytes Auto (Bld) [#/Vo l]Ordered By: Aki Garcia on 12-12-2022 Lymphocytes (Bld) [#/Vol] 1.9 10*3/uL 1.00-4.8 [facility] Lymphocytes/100 WBC Auto (Bl d)Ordered By: Aki Garcia on 12-12-2022 Lymphocytes/100 WBC (Bld) 30.3 % . [facility] MCH Auto (RBC) [Entitic mass ]Ordered By: Aki Garcia on 12-12-2022 MCH (RBC) [Entitic mass] 30.3 pg 24.7-34.3 [facility] MCHC Auto (RBC) [Mass/Vol]Or dered By: Aki Garcia on 12-12-2022 MCHC (RBC) [Mass/Vol] 33.0 g/dL 32.0-35.0 [facility] MCV Auto (RBC) [Entitic vol] Ordered By: Aki Garcia on 12-12-2022 MCV (RBC) [Entitic vol] 92.1 fL 80-100 [facility] Monocytes Auto (Bld) [#/Vol] Ordered By: Aki Garcia on 12-12-2022 Monocytes (Bld) [#/Vol] 0.5 10*3/uL 0.0-0.8 [facility] Monocytes/100 WBC Auto (Bld) Ordered By: Aki Garcia on 12-12-2022 Monocytes/100 WBC (Bld) 7.3 % . [facility] Neutrophils Auto (Bld) [#/Vo l]Ordered By: Aki Garcia on 12-12-2022 Neutrophils (Bld) [#/Vol] 3.8 10*3/uL 1.8-7.7 [facility] Neutrophils/100 WBC Auto (Bl d)Ordered By: Aki Garcia on 12-12-2022 Neutrophils/100 WBC (Bld) 59.7 % . [facility] No Panel InformationOrdered By: Aki Garcia on 12-12-2022 Estimated GFR () > 60 mL/Min [facility] Comment on above: GFR estimated refere nce range: According to KDOQI guidelines, <60 ml/min/1.73m2 is sufficient to diagnose a patient with chronic kidney disease. Pharmacy Creatinine Clearance (Chem N/A [facility] Nucleated erythrocytes [Pres ence] in Blood by Automated countOrdered By: Aki Garcia on 12-12-2022 Nucleated RBC Auto Ql (Bld) 0.2 /100{WBC} 0-0.5 [facility] Platelet mean volume Auto (B ld) [Entitic vol]Ordered By: Aki Garcia on 12-12-2022 Platelet mean volume (Bld) [Entitic vol] 9.1 fL 6.3-10.7 [facility] Platelets Auto (Bld) [#/Vol] Ordered By: Aki Garcia on 12-12-2022 Platelets (Bld) [#/Vol] 255 10*3/uL 150-450 [facility] RBC Auto (Bld) [#/Vol]Ordere d By: Aki Garcia on 12-12-2022 RBC (Bld) [#/Vol] 4.10 10*6/uL 3.60-5.00 [facility] Serum or plasma anion gap de terminationOrdered By: Aik Garcia on 12-12-2022 Anion gap [Moles/Vol] 11.5 mmol/L 6.0-15.0 [facility] Serum or plasma calcium maxim urement (mass/volume)Ordered By: Aki Garcia on 12-12-2022 Calcium [Mass/Vol] 9.7 mg/dL 8.2-10.2 [facility] Serum or plasma chloride kg surement (moles/volume)Ordered By: Aki Garcia on 12-12-2022 Chloride [Moles/Vol] 100 mmol/L 95-114 [facility] Serum or plasma glucose maxim urement (mass/volume)Ordered By: Aki Garcia on 12-12-2022 Glucose [Mass/Vol] 89 mg/dL 70-100 [facility] Comment on above: ADA recommended refe rence rangeRandom Glucose Reference Range is dependent on time and content of last meal. Glucose of more than 200 mg/dL in a nonstressed, ambulatory subject supports the diagnosis of Diabetes Mellitus. Serum or plasma potassium me asurement (moles/volume)Ordered By: Aki Garcia on 12-12-2022 Potassium [Moles/Vol] 4.2 mmol/L 3.5-5.1 [facility] Serum or plasma sodium measu rement (moles/volume)Ordered By: Aki Garcia on 12-12-2022 Sodium [Moles/Vol] 137 mmol/L 136-146 [facility] Serum or plasma total carbon dioxide measurement (moles/volume)Ordered By: Aki Garcia on 12-12-2022 CO2 [Moles/Vol] 29.7 mmol/L 22.0-30.0 [facility] Serum or plasma urea nitroge n measurement (mass/volume)Ordered By: Aki Garcia on 12-12-2022 Urea nitrogen [Mass/Vol] 7 mg/dL 9- [facility] WBC Auto (Bld) [#/Vol]Ordere d By: Aki Garcia on 12-12-2022 WBC (Bld) [#/Vol] 6.4 10*3/uL 3.8-11.6 [facility] PROF CHEM 8 (BAS METB)on Anion gap [Moles/Vol] 9.9 mmol/L Normal [facility] Comment on above: Performed By: #### B MP #### [facility] [address] [address] [address] Vianey Headley Calcium [Mass/Vol] 9.4 mg/dL Normal 8.5-10.1 [facility] Comment on above: Performed By: #### B MP #### [facility] [address] [address] [address] Vianey Headley Chloride [Moles/Vol] 101 mmol/L Normal 98-107 [facility] Comment on above: Performed By: #### B MP #### [facility] [address] [address] [address] Vianey Headley CO2 [Moles/Vol] 33.1 mmol/L Critically high 21.0-32.0 [facility] Comment on above: Performed By: #### B MP #### [facility] [address] [place] [address] Dr. Vianey Headley Creatinine [Mass/Vol] 0.89 mg/dL Normal 0.55-1.02 [facility] Comment on above: Performed By: #### B MP #### [facility] [address] [place] [address] Dr. Vianey Headley EGFR-AF BRITISH >60 Normal >=60 [facility] Comment on above: Performed By: #### B MP #### [facility] [address] [address] [address] Vianey Headley EGFR-NON AF BRITISH >60 Normal >=60 [facility] Comment on above: Performed By: #### B MP #### [facility] [address] [place] [address] Dr. Vianey Headley Glucose [Mass/Vol] 88 mg/dL Normal 74-106 [facility] Comment on above: Performed By: #### B MP #### [facility] [address] [place] [address] Dr. Vianey Headley Potassium [Moles/Vol] 4.0 mmol/L Normal 3.5-5.1 [facility] Comment on above: Performed By: #### B MP #### [facility] [address] [place] [address] Dr. Vianey Headley Sodium [Moles/Vol] 140 mmol/L Normal 136-145 [facility] Comment on above: Performed By: #### B MP #### [facility] [address] [place] [address] Dr. Vianey Headley Urea nitrogen [Mass/Vol] 10.0 mg/dL Normal 7.0-18.0 [facility] Comment on above: Performed By: #### B MP #### [facility] [address] [place] [address] Dr. Vianey Headley Urea nitrogen/Creatinine [Mass ratio] 11.2 mg/mg Normal [facility] Comment on above: Performed By: #### B MP #### [facility] [address] [place] [address] Dr. Vianey Headley Basophils Auto (Bld) [#/Vol] Ordered By: Valerio Charles on 09-06-2022 Basophils (Bld) [#/Vol] 0.0 10*3/uL 0.0-0.2 [facility] Basophils/100 WBC Auto (Bld) Ordered By: Valerio Charles on 09-06-2022 Basophils/100 WBC (Bld) 0.9 % . [facility] Creatinine and Glomerular fi ltration rate.predicted panel (S/P/Bld)Ordered By: Valerio Charles on 09-06-2022 Creatinine [Mass/Vol] 1.02 mg/dL 0.44-1.03 [facility] Eosinophils Auto (Bld) [#/Vo l]Ordered By: Valerio Charles on 09-06-2022 Eosinophils (Bld) [#/Vol] 0.1 10*3/uL 0.0-0.45 [facility] Eosinophils/100 WBC Auto (Bl d)Ordered By: Valerio Charles on 09-06-2022 Eosinophils/100 WBC (Bld) 2.0 % . [facility] Erythrocyte distribution wid th Auto (RBC) [Ratio]Ordered By: Valerio Charles on 09-06-2022 Erythrocyte distribution width (RBC) [Ratio] 12.5 % 11.9-15.3 [facility] Estimated glomerular filtrat ion rate (GFR) non- AmericanOrdered By: Valerio Charles on 09-06-2022 GFR/1.73 sq M.predicted among non-blacks MDRD (S/P/Bld) [Vol rate/Area] 54 mL/Min [facility] Hematocrit Auto (Bld) [Volum e fraction]Ordered By: Valerio Charles on 09-06-2022 Hematocrit (Bld) [Volume fraction] 35.8 % 34.0-46.4 [facility] Hemoglobin [Mass/volume] in BloodOrdered By: Valerio Charles on 09-06-2022 Hemoglobin (Bld) [Mass/Vol] 12.0 g/dL 11.8-15.4 [facility] - Hematology and Cell countsOrdered By: Valerio Charles on 09-06-2022 Nucleated RBC/100 WBC (Bld) [Ratio] 0.0 % 0-0.5 [facility] Leukocytes [#/volume] in Blo od by Automated countOrdered By: Valerio Charles on 09-06-2022 WBC (Bld) [#/Vol] 5.0 10*3/uL 4.5-11.0 [facility] Lymphocytes Auto (Bld) [#/Vo l]Ordered By: Valerio Charles on 09-06-2022 Lymphocytes (Bld) [#/Vol] 1.4 10*3/uL 1.00-4.8 [facility] Lymphocytes/100 WBC Auto (Bl d)Ordered By: aVlerio Charles on 09-06-2022 Lymphocytes/100 WBC (Bld) 28.7 % . [facility] MCH Auto (RBC) [Entitic mass ]Ordered By: Valerio Charles on 09-06-2022 MCH (RBC) [Entitic mass] 31.3 pg 24.7-34.3 [facility] MCHC Auto (RBC) [Mass/Vol]Or dered By: Valerio Charles on 09-06-2022 MCHC (RBC) [Mass/Vol] 33.4 g/dL 32.0-35.0 [facility] MCV Auto (RBC) [Entitic vol] Ordered By: Valerio Charles on 09-06-2022 MCV (RBC) [Entitic vol] 93.6 fL 80-100 [facility] Monocytes Auto (Bld) [#/Vol] Ordered By: Valerio Charles on 09-06-2022 Monocytes (Bld) [#/Vol] 0.5 10*3/uL 0.0-0.8 [facility] Monocytes/100 WBC Auto (Bld) Ordered By: Valerio Charles on 09-06-2022 Monocytes/100 WBC (Bld) 9.4 % . [facility] Neutrophils Auto (Bld) [#/Vo l]Ordered By: Valerio Charles on 09-06-2022 Neutrophils (Bld) [#/Vol] 3.0 10*3/uL 1.8-7.7 [facility] Neutrophils/100 WBC Auto (Bl d)Ordered By: Valerio Charles on 09-06-2022 Neutrophils/100 WBC (Bld) 59.0 % . [facility] No Panel InformationOrdered By: Valerio Charles on 09-06-2022 Estimated GFR () > 60 mL/Min [facility] Comment on above: GFR estimated refere nce range: According to KDOQI guidelines, <60 ml/min/1.73m2 is sufficient to diagnose a patient with chronic kidney disease. Pharmacy Creatinine Clearance (Chem 45.44 [facility] Platelet mean volume Auto (B ld) [Entitic vol]Ordered By: Valerio Charles on 09-06-2022 Platelet mean volume (Bld) [Entitic vol] 9.7 fL 6.3-10.7 [facility] Platelets Auto (Bld) [#/Vol] Ordered By: Valerio Charles on 09-06-2022 Platelets (Bld) [#/Vol] 253 10*3/uL 150-450 [facility] RBC Auto (Bld) [#/Vol]Ordere d By: Valerio Charles on 09-06-2022 RBC (Bld) [#/Vol] 3.83 10*6/uL 3.60-5.00 [facility] Serum or plasma anion gap de terminationOrdered By: Valerio Charles on 09-06-2022 Anion gap [Moles/Vol] 8.9 mmol/L 6.0-15.0 [facility] Serum or plasma calcium maxim urement (mass/volume)Ordered By: Valerio Charles on 09-06-2022 Calcium [Mass/Vol] 9.4 mg/dL 8.2-10.2 [facility] Serum or plasma chloride kg surement (moles/volume)Ordered By: Valerio Charles on 09-06-2022 Chloride [Moles/Vol] 100 mmol/L 95-114 [facility] Serum or plasma glucose maxim urement (mass/volume)Ordered By: Valerio Charles on 09-06-2022 Glucose [Mass/Vol] 109 mg/dL 70-100 [facility] Comment on above: ADA recommended refe rence rangeRandom Glucose Reference Range is dependent on time and content of last meal. Glucose of more than 200 mg/dL in a nonstressed, ambulatory subject supports the diagnosis of Diabetes Mellitus. Serum or plasma potassium me asurement (moles/volume)Ordered By: Valerio Charles on 09-06-2022 Potassium [Moles/Vol] 2.6 mmol/L 3.5-5.1 [facility] Comment on above: Results calledat 070 7 on 09/06/22 Serum or plasma sodium measu rement (moles/volume)Ordered By: Valerio Charles on 09-06-2022 Sodium [Moles/Vol] 134 mmol/L 136-146 [facility] Serum or plasma total carbon dioxide measurement (moles/volume)Ordered By: Valerio Charles on 09-06-2022 CO2 [Moles/Vol] 27.7 mmol/L 22.0-30.0 [facility] Serum or plasma urea nitroge n measurement (mass/volume)Ordered By: Valerio Charles on 09-06-2022 Urea nitrogen [Mass/Vol] 8 mg/dL 9-23 [facility] COVID-19 SOFIAOrdered By: Higinio Smith on 09-04-2022 SARS-CoV+SARS-CoV-2 (COVID-19) Ag IA.rapid Ql (Resp) Negative Negative [facility] Comment on above: This is a duplicate Mia SARS Antigen (JOHNY) result to be used for statistical tracking purpose only. No Panel InformationOrdered By: Aki Garcia on 09-04-2022 SARS Antigen (LFIA) [facility] CBC AUTO DIFFon 08-02-2022 BASO # 0.0 103/ul Normal 0.0-0.1 [facility] Comment on above: Performed By: #### C BC #### [facility] [address] [address] [address] Vianey Headley Basophils/100 WBC (Bld) 0.8 % Normal 0.2-2.0 [facility] Comment on above: Performed By: #### C BC #### [facility] [address] [place] [address] Dr. Vianey Headley EO # 0.1 103/ul Normal 0.0-0.7 [facility] Comment on above: Performed By: #### C BC #### [facility] [address] [place] [address] Dr. Vianey Headley Eosinophils/100 WBC (Bld) 2.4 % Normal 0.9-7.0 [facility] Comment on above: Performed By: #### C BC #### [facility] [address] [place] [address] Dr. Vianey Headley Erythrocyte distribution width (RBC) [Ratio] 12.6 % Normal 11.0-15.0 [facility] Comment on above: Performed By: #### C BC #### [facility] [address] [place] [address] Dr. Vianey Headley Hematocrit (Bld) [Volume fraction] 35.1 % Critically low 36.0-48.0 [facility] Comment on above: Performed By: #### C BC #### [facility] [address] [place] [address] Dr. Vianey Headley Hemoglobin (Bld) [Mass/Vol] 11.4 g/dL Critically low 12.0-16.0 [facility] Comment on above: Performed By: #### C BC #### [facility] [address] [place] [address] Dr. Vianey Headley IG # 0.01 10e3/ul Normal 0.00-0.03 [facility] Comment on above: Performed By: #### C BC #### [facility] [address] [place] [address] Dr. Vianey Headley IG % 0.2 % Normal 0.0-0.5 [facility] Comment on above: Performed By: #### C BC #### [facility] [address] [place] [address] Dr. Vianey Headley LYMPH # 1.5 103/ul Normal 1.2-3.8 [facility] Comment on above: Performed By: #### C BC #### [facility] [address] [place] [address] Dr. Vianey Headley Lymphocytes/100 WBC (Bld) 29.6 % Normal 20.5-60.0 [facility] Comment on above: Performed By: #### C BC #### [facility] [address] [place] [address] Dr. Vianey Headley MANUAL DIFF REQ NO Normal [facility] Comment on above: Performed By: #### C BC #### [facility] [address] [place] [address] Dr. Vianey Headley MCH (RBC) [Entitic mass] 31.4 pg Normal 26.7-34.0 [facility] Comment on above: Performed By: #### C BC #### [facility] [address] [place] [address] Dr. Vianey Headley MCHC (RBC) [Mass/Vol] 32.5 g/dL Normal 29.9-35.2 [facility] Comment on above: Performed By: #### C BC #### [facility] [address] [place] [address] Dr. Vianey Headley MCV (RBC) [Entitic vol] 96.7 fL Normal 81.0-99.0 [facility] Comment on above: Performed By: #### C BC #### [facility] [address] [place] [address] Dr. Vianey Headley MONO # 0.4 103/ul Normal 0.3-0.8 [facility] Comment on above: Performed By: #### C BC #### [facility] [address] [place] [address] Dr. Vianey Headley Monocytes/100 WBC (Bld) 8.1 % Normal 1.7-12.0 [facility] Comment on above: Performed By: #### C BC #### [facility] [address] [place] [address] Dr. Vianey Headley NEUT # 2.9 103/ul Normal 1.4-6.5 [facility] Comment on above: Performed By: #### C BC #### [facility] [address] [place] [address] Dr. Vianey Headley Neutrophils/100 WBC (Bld) 58.9 % Normal 43.0-75.0 [facility] Comment on above: Performed By: #### C BC #### [facility] [address] [address] [address] Vianey Headley Platelet mean volume (Bld) [Entitic vol] 11.2 fL Normal 9.5-13.5 [facility] Comment on above: Performed By: #### C BC #### [facility] [address] [address] [address] Vianey Headley PLT 262 103/ul Normal 150-450 [facility] Comment on above: Performed By: #### C BC #### [facility] [address] [place] [address] Dr. Vianey Headley RBC 3.63 106/ul Critically low 4.20-5.40 [facility] Comment on above: Performed By: #### C BC #### [facility] [address] [place] [address] Dr. Vianey Headley WBC 4.9 103/ul Normal 4.0-11.0 [facility] Comment on above: Performed By: #### C BC #### [facility] [address] [place] [address] Dr. Vianey Headley GLYCOHEMOGLOBIN A1Con 2021 ADA RECOMMENDATION SEE BELOW Normal [facility] Comment on above: Result Comment: ADA RECOMMENDED LIMIT 4.0 - 6.0 ADA THERAPEUTIC TARGET < 7.0 ACTION SUGGESTED > 7.0 Performed By: #### A 1C #### [facility] [address] [place] [address] Dr. Vianey Headley Glucose [Mass/Vol] 134 mg/dL Normal [facility] Comment on above: Performed By: #### A 1C #### [facility] [address] [place] [address] Dr. Vianey Headley HbA1c (Bld) [Mass fraction] 6.3 % Critically high 4.5-6.2 [facility] Comment on above: Performed By: #### A 1C #### [facility] [address] [place], [place] [id number] Dr. Vianey Headley LIPID PROFILEon 08-02-2022 CHOL-HDL RATIO NORM SEE BELOW Normal [facility] Comment on above: Result Comment: 3.3 - 4.4 LOW RISK 4.4 - 7.1 AVERAGE RISK 7.1 - 11.0 MODERATE RISK >11.0 HIGH RISK Performed By: #### T SH, BMP, LIPID, LIVER #### [facility] [address] [place] [address] Dr. Vianey Headley Cholesterol [Mass/Vol] 188 mg/dL Normal <=200 [facility] Comment on above: Performed By: #### T SH, BMP, LIPID, LIVER #### [facility] [address] [place] [address] Dr. Vianey Headley Cholesterol in HDL [Mass/Vol] 38 mg/dL Critically low 40-60 [facility] Comment on above: Performed By: #### T SH, BMP, LIPID, LIVER #### [facility] [address] [place] [address] Dr. Vianey Headley Cholesterol in LDL [Mass/Vol] 100.8 mg/dL Normal [facility] Comment on above: Performed By: #### T SH, BMP, LIPID, LIVER #### [facility] [address] [place] [address] Dr. Vianey Headley Cholesterol.total/Choles terol in HDL [Mass ratio] 4.9 {ratio} Normal [facility] Comment on above: Performed By: #### T SH, BMP, LIPID, LIVER #### [facility] [address] [place] [address] Dr. Vianey Headley HDL NORMAL > or = 60 mg/dl - LOW CARDIOVASCULAR RISK <40 mg/dl - HIGH CARDIOVASCULAR RISK Normal [facility] Comment on above: Performed By: #### T SH, BMP, LIPID, LIVER #### [facility] [address] [place] [address] Dr. Vianey Headley LDL CALC NORMAL SEE BELOW Normal [facility] Comment on above: Result Comment: <100 mg/dl OPTIMAL 100 - 129 mg/dl NEAR OR ABOVE OPTIMAL 130 - 159 mg/dl BORDERLINE HIGH 160 - 189 mg/dl HIGH >190 mg/dl VERY HIGH Performed By: #### T SH, BMP, LIPID, LIVER #### [facility] [address] [address] [address] Vianey Headley Triglyceride [Mass/Vol] 246 mg/dL Critically high <=150 [facility] Comment on above: Performed By: #### T SH, BMP, LIPID, LIVER #### [facility] [address] [address] [address] Vianey Headley VLDL CALC 49.2 mg/dL Normal [facility] Comment on above: Performed By: #### T SH, BMP, LIPID, LIVER #### [facility] [address] [address] [address] Vianey Headley LIVER PROFILEon 08-02-2022 Albumin [Mass/Vol] 3.7 g/dL Normal 3.4-5.0 [facility] Comment on above: Performed By: #### T SH, BMP, LIPID, LIVER #### [facility] [address] [place] [address] Dr. Vianey Headley Albumin/Globulin [Mass ratio] 1.3 {ratio} Normal [facility] Comment on above: Performed By: #### T SH, BMP, LIPID, LIVER #### [facility] [address] [place] [address] Dr. Vianey Headley ALP [Catalytic activity/Vol] 82 U/L Normal 46-116 [facility] Comment on above: Performed By: #### T SH, BMP, LIPID, LIVER #### [facility] [address] [place] [address] Dr. Vianey Headley ALT [Catalytic activity/Vol] 23 U/L Normal 14-59 [facility] Comment on above: Performed By: #### T SH, BMP, LIPID, LIVER #### [facility] [address] [place] [address] Dr. Vianey Headley AST [Catalytic activity/Vol] 16 U/L Normal 15-37 [facility] Comment on above: Performed By: #### T SH, BMP, LIPID, LIVER #### [facility] [address] [place] [address] Dr. Vianey Headley BILI, CONJUGATED 0.1 mg/dL Normal 0.0-0.2 [facility] Comment on above: Performed By: #### T SH, BMP, LIPID, LIVER #### [facility] [address] [place] [address] Dr. Vianey Headley Bilirubin [Mass/Vol] 0.3 mg/dL Normal 0.2-1.0 [facility] Comment on above: Performed By: #### T SH, BMP, LIPID, LIVER #### [facility] [address] [place] [address] Dr. Vianey Headley Globulin (S) [Mass/Vol] 2.9 g/dL Normal [facility] Comment on above: Performed By: #### T SH, BMP, LIPID, LIVER #### [facility] [address] [place] [address] Dr. Vianey Headley Protein [Mass/Vol] 6.6 g/dL Normal 6.4-8.2 [facility] Comment on above: Performed By: #### T SH, BMP, LIPID, LIVER #### [facility] [address] [place] [address] Dr. Vianey Headley PROF CHEM 8 (BAS METB)on Anion gap [Moles/Vol] 12.5 mmol/L Normal [facility] Comment on above: Performed By: #### T SH, BMP, LIPID, LIVER #### [facility] [address] [place] [address] Dr. Vianey Headley Calcium [Mass/Vol] 9.1 mg/dL Normal 8.5-10.1 [facility] Comment on above: Performed By: #### T SH, BMP, LIPID, LIVER #### [facility] [address] [place] [address] Dr. Vianey Headley Chloride [Moles/Vol] 101 mmol/L Normal 98-107 [facility] Comment on above: Performed By: #### T SH, BMP, LIPID, LIVER #### [facility] [address] [place] [address] Dr. Vianey Headley CO2 [Moles/Vol] 27.7 mmol/L Normal 21.0-32.0 [facility] Comment on above: Performed By: #### T SH, BMP, LIPID, LIVER #### [facility] [address] [address] [address] Vianey Headley Creatinine [Mass/Vol] 1.12 mg/dL Critically high 0.55-1.02 [facility] Comment on above: Performed By: #### T SH, BMP, LIPID, LIVER #### [facility] [address] [place] [address] Dr. Vianey Headley EGFR-AF BRITISH 58 mL/min/1.73m2 Critically low >=60 [facility] Comment on above: Performed By: #### T SH, BMP, LIPID, LIVER #### [facility] [address] [place] [address] Dr. Vianey Headley EGFR-NON AF BRITISH 48 mL/min/1.73m2 Critically low >=60 [facility] Comment on above: Performed By: #### T SH, BMP, LIPID, LIVER #### [facility] [address] [place] [address] Dr. Vianey Headley Glucose [Mass/Vol] 113 mg/dL Critically high 74-106 [facility] Comment on above: Performed By: #### T SH, BMP, LIPID, LIVER #### [facility] [address] [place] [address] Dr. Vianey Headley Potassium [Moles/Vol] 4.2 mmol/L Normal 3.5-5.1 [facility] Comment on above: Performed By: #### T SH, BMP, LIPID, LIVER #### [facility] [address] [place] [address] Dr. Vianey Headley Sodium [Moles/Vol] 137 mmol/L Normal 136-145 [facility] Comment on above: Performed By: #### T SH, BMP, LIPID, LIVER #### [facility] [address] [place] [address] Dr. Vianey Headley Urea nitrogen [Mass/Vol] 10.0 mg/dL Normal 7.0-18.0 [facility] Comment on above: Performed By: #### T SH, BMP, LIPID, LIVER #### [facility] [address] [place], [place] [address] Dr. Vianey Headley Urea nitrogen/Creatinine [Mass ratio] 8.9 mg/mg Normal [facility] Comment on above: Performed By: #### T SH, BMP, LIPID, LIVER #### [facility] [address] [place], [place] [address] Dr. Vianey Headley TSHon 08-02-2022 TSH 2.128 uIU/mL Normal 0.358-3.740 [facility] Comment on above: Performed By: #### T SH, BMP, LIPID, LIVER #### [facility] [address] [place], [place] [address] Dr. Vianey Headley Basophils Auto (Bld) [#/Vol] Ordered By: Aki Garcia on 07-31-2022 Basophils (Bld) [#/Vol] 0.0 10*3/uL 0.0-0.2 [facility] Basophils/100 WBC Auto (Bld) Ordered By: Aki Garcia on 07-31-2022 Basophils/100 WBC (Bld) 0.6 % . [facility] Creatinine and Glomerular fi ltration rate.predicted panel (S/P/Bld)Ordered By: Aki Garcia on 07-31-2022 Creatinine [Mass/Vol] 0.95 mg/dL 0.44-1.03 [facility] Eosinophils Auto (Bld) [#/Vo l]Ordered By: Aki Garcia on 07-31-2022 Eosinophils (Bld) [#/Vol] 0.1 10*3/uL 0.0-0.45 [facility] Eosinophils/100 WBC Auto (Bl d)Ordered By: Aki Garcia on 07-31-2022 Eosinophils/100 WBC (Bld) 2.1 % . [facility] Erythrocyte distribution wid th Auto (RBC) [Ratio]Ordered By: Aki Garcia on 07-31-2022 Erythrocyte distribution width (RBC) [Ratio] 13.2 % 11.9-15.3 [facility] Estimated glomerular filtrat ion rate (GFR) non- AmericanOrdered By: Aki Garcia on 07-31-2022 GFR/1.73 sq M.predicted among non-blacks MDRD (S/P/Bld) [Vol rate/Area] 58 mL/Min [facility] Hematocrit Auto (Bld) [Volum e fraction]Ordered By: Aki Garcia on 07-31-2022 Hematocrit (Bld) [Volume fraction] 36.1 % 34.0-46.4 [facility] Hemoglobin [Mass/volume] in BloodOrdered By: Aki Garcia on 07-31-2022 Hemoglobin (Bld) [Mass/Vol] 12.0 g/dL 11.8-15.4 [facility] - Hematology and Cell countsOrdered By: Aki Garcia on 07-31-2022 Nucleated RBC/100 WBC (Bld) [Ratio] 0.0 % 0-0.5 [facility] Leukocytes [#/volume] in Blo od by Automated countOrdered By: Aki Garcia on 07-31-2022 WBC (Bld) [#/Vol] 5.7 10*3/uL 4.5-11.0 [facility] Lymphocytes Auto (Bld) [#/Vo l]Ordered By: Aki Garcia on 07-31-2022 Lymphocytes (Bld) [#/Vol] 1.5 10*3/uL 1.00-4.8 [facility] Lymphocytes/100 WBC Auto (Bl d)Ordered By: Aki Garcia on 07-31-2022 Lymphocytes/100 WBC (Bld) 25.5 % . [facility] MCH Auto (RBC) [Entitic mass ]Ordered By: Aki Garcia on 07-31-2022 MCH (RBC) [Entitic mass] 31.2 pg 24.7-34.3 [facility] MCHC Auto (RBC) [Mass/Vol]Or dered By: Aki Garcia on 07-31-2022 MCHC (RBC) [Mass/Vol] 33.3 g/dL 32.0-35.0 [facility] MCV Auto (RBC) [Entitic vol] Ordered By: Aki Garcia on 07-31-2022 MCV (RBC) [Entitic vol] 93.7 fL 80-100 [facility] Monocytes Auto (Bld) [#/Vol] Ordered By: Aki Garcia on 07-31-2022 Monocytes (Bld) [#/Vol] 0.5 10*3/uL 0.0-0.8 [facility] Monocytes/100 WBC Auto (Bld) Ordered By: Aki Garcia on 07-31-2022 Monocytes/100 WBC (Bld) 7.9 % . [facility] Neutrophils Auto (Bld) [#/Vo l]Ordered By: Aki Garcia on 07-31-2022 Neutrophils (Bld) [#/Vol] 3.7 10*3/uL 1.8-7.7 [facility] Neutrophils/100 WBC Auto (Bl d)Ordered By: Aki Garcia on 07-31-2022 Neutrophils/100 WBC (Bld) 63.9 % . [facility] No Panel InformationOrdered By: Aki Garcia on 07-31-2022 Estimated GFR () > 60 mL/Min [facility] Comment on above: GFR estimated refere nce range: According to KDOQI guidelines, <60 ml/min/1.73m2 is sufficient to diagnose a patient with chronic kidney disease. Pharmacy Creatinine Clearance (Chem N/A [facility] Platelet mean volume Auto (B ld) [Entitic vol]Ordered By: Aki Garcia on 07-31-2022 Platelet mean volume (Bld) [Entitic vol] 9.1 fL 6.3-10.7 [facility] Platelets Auto (Bld) [#/Vol] Ordered By: Aki Garcia on 07-31-2022 Platelets (Bld) [#/Vol] 277 10*3/uL 150-450 [facility] RBC Auto (Bld) [#/Vol]Ordere d By: Aki Garcia on 07-31-2022 RBC (Bld) [#/Vol] 3.85 10*6/uL 3.60-5.00 [facility] Serum or plasma anion gap de terminationOrdered By: Aki Garcia on 07-31-2022 Anion gap [Moles/Vol] 14.3 mmol/L 6.0-15.0 [facility] Serum or plasma calcium maxim urement (mass/volume)Ordered By: Aki Garcia on 07-31-2022 Calcium [Mass/Vol] 9.8 mg/dL 8.2-10.2 [facility] Serum or plasma chloride kg surement (moles/volume)Ordered By: Aki Garcia on 07-31-2022 Chloride [Moles/Vol] 98 mmol/L 95-114 [facility] Serum or plasma glucose maxim urement (mass/volume)Ordered By: Aki Garcia on 07-31-2022 Glucose [Mass/Vol] 111 mg/dL 70-100 [facility] Comment on above: ADA recommended refe rence rangeRandom Glucose Reference Range is dependent on time and content of last meal. Glucose of more than 200 mg/dL in a nonstressed, ambulatory subject supports the diagnosis of Diabetes Mellitus. Serum or plasma potassium me asurement (moles/volume)Ordered By: Aki Garcia on 07-31-2022 Potassium [Moles/Vol] 3.8 mmol/L 3.5-5.1 [facility] Serum or plasma sodium measu rement (moles/volume)Ordered By: Aki Garcia on 07-31-2022 Sodium [Moles/Vol] 138 mmol/L 136-146 [facility] Serum or plasma total carbon dioxide measurement (moles/volume)Ordered By: Aki Garcia on 07-31-2022 CO2 [Moles/Vol] 29.5 mmol/L 22.0-30.0 [facility] Serum or plasma urea nitroge n measurement (mass/volume)Ordered By: Aki Garcia on 07-31-2022 Urea nitrogen [Mass/Vol] 10 mg/dL 9-23 [facility] Creatinine (Bld) [Mass/Vol]O rdered By: Aki Garcia on 06-15-2022 Creatinine [Mass/Vol] 1.1 mg/dL 0.6-1.3 [facility] Comment on above: ER/ESD physician is notified/shown all ISTAT results. Critical values may be confirmed by laboratory testing if deemed necessary by ER attending doctor. ER/ESD physician is notified/shown all ISTAT results.Critical values may be confirmed by laboratory testing ifdeemed necessary by ER attending doctor. No Panel InformationOrdered By: Aki Garcia on 06-15-2022 POC Estimated GFR 60 [facility] Comment on above: GFR estimated refere nce range: According to KDOQI guidelines, <60 ml/min/1.73m2 is sufficient to diagnose a patient with chronic kidney disease. POC Estimated GFR Non- Amer 49 [facility] Vital Signs Date Time Vital Sign Value Performing Clinician Facility 02-23-2025 10:12-0400 Body height 149.9 cm Jesse Deluca MD Work Phone: [facility] 02-23-2025 10:12-0400 Body mass index (BMI) [Ratio] 31.51 kg/m2 Jesse Deluca MD Work Phone: [facility] 02-23-2025 10:12-0400 Body temperature 97.81 [degF] Jesse Deluca MD Work Phone: [facility] 02-23-2025 10:12-0400 Body weight 70.76 kg Jesse Deluca MD Work Phone: [facility] 02-23-2025 10:12-0400 Diastolic blood pressure 62 mm[Hg] Jesse Deluca MD Work Phone: [facility] 02-23-2025 10:12-0400 Heart rate 89 /min Jesse Deluca MD Work Phone: [facility] 02-23-2025 10:12-0400 Respiratory rate 22 /min Jesse Deluca MD Work Phone: [facility] 02-23-2025 10:12-0400 SaO2% (BldA) [Mass fraction] 97 % Jesse Deluca MD Work Phone: [facility] 02-23-2025 10:12-0400 Systolic blood pressure 118 mm[Hg] Jesse Deluca MD Work Phone: [facility] 01-15-2025 14:20-0400 Body height 152.4 cm Jesse Deluca MD Work Phone: [facility] 01-15-2025 14:20-0400 Body mass index (BMI) [Ratio] 30.5 kg/m2 Jesse Deluca MD Work Phone: [facility] 01-15-2025 14:20-0400 Body weight 71 kg Jesse Deluca MD Work Phone: [facility] 08-25-2024 10:19-0500 Body height 149.9 cm Jesse Deluca MD Work Phone: [facility] 08-25-2024 10:19-0500 Body mass index (BMI) [Ratio] 31.71 kg/m2 Jesse Deluca MD Work Phone: [facility] 08-25-2024 10:19-0500 Body temperature 97.11 [degF] Jesse Deluca MD Work Phone: [facility] 08-25-2024 10:19-0500 Body weight 71.22 kg Jesse Deluca MD Work Phone: [facility] 08-25-2024 10:19-0500 Diastolic blood pressure 56 mm[Hg] Jesse Deluca MD Work Phone: [facility] 08-25-2024 10:19-0500 Heart rate 92 /min Jesse Deluca MD Work Phone: [facility] 08-25-2024 10:19-0500 Respiratory rate 22 /min Jesse Deluca MD Work Phone: [facility] 08-25-2024 10:19-0500 SaO2% (BldA) [Mass fraction] 96 % Jesse Deluca MD Work Phone: [facility] 08-25-2024 10:19-0500 Systolic blood pressure 110 mm[Hg] Jesse Deluca MD Work Phone: [facility] 07-31-2024 10:48-0400 Body height 149.9 cm Micha Fowler DPM Work Phone: [facility] 07-31-2024 10:48-0400 Body mass index (BMI) [Ratio] 32.52 kg/m2 Micha Fowler DPM Work Phone: [facility] 07-31-2024 10:48-0400 Body weight 73.03 kg Micha Fowler DPM Work Phone: [facility] 07-10-2024 10:37-0400 Body height 149.9 cm Micha Fowler DPM Work Phone: [facility] 07-10-2024 10:37-0400 Body mass index (BMI) [Ratio] 32.52 kg/m2 Micha Fowler DPM Work Phone: [facility] 07-10-2024 10:37-0400 Body weight 73.03 kg Micha Fowler DPM Work Phone: [facility] 01-17-2024 10:31-0400 Body height 152.4 cm MD Jesse Deluca Work Phone: [facility] 01-17-2024 10:31-0400 Body mass index (BMI) [Ratio] 31 kg/m2 MD Jesse Deluca Work Phone: [facility] 01-17-2024 10:31-0400 Body weight 72.12 kg MD Jesse Deluca Work Phone: [facility] 08-09-2023 15:40-0400 Body height 152.4 cm Aki Garcia Other [employer] Other 08-09-2023 15:40-0400 Body mass index (BMI) [Ratio] 30.46 kg/m2 Aki Garcia Other [employer] Other 08-09-2023 15:40-0400 Body weight 70.76 kg Aki Garcia Other [employer] Other 02-08-2023 16:20-0400 Body height 152.4 cm Aki Garcia Other [employer] Other 02-08-2023 16:20-0400 Body mass index (BMI) [Ratio] 28.71 kg/m2 Aki Garcia Other [facility] [employer] Other 02-08-2023 16:20-0400 Body weight 66.68 kg Aki Garcia Other [facility] [employer] Other 12-27-2022 15:15-0500 Body temperature 99.5 [degF] MD Jesse Deluca Work Phone: [facility] 12-27-2022 15:15-0500 Diastolic blood pressure 70 mm[Hg] MD Jesse Deluca Work Phone: [facility] 12-27-2022 15:15-0500 Heart rate 74 /min MD Jesse Deluca Work Phone: [facility] 12-27-2022 15:15-0500 Respiratory rate 18 /min MD Jesse Deluca Work Phone: [facility] 12-27-2022 15:15-0500 SaO2% (BldA) [Mass fraction] 98 % MD Jesse Deluca Work Phone: [facility] 12-27-2022 15:15-0500 Systolic blood pressure 130 mm[Hg] MD Jesse Deluca Work Phone: [facility] 12-25-2022 16:35-0500 Inhaled oxygen flow rate 2 L/min MD Jesse Deluca Work Phone: [facility] 12-25-2022 07:54-0500 Body height 149.86 cm MD Jesse Deluca Work Phone: [facility] 12-25-2022 07:54-0500 Body mass index (BMI) [Ratio] 29.8 kg/m2 MD Jesse Deluca Work Phone: [facility] 12-25-2022 07:54-0500 Body weight 67 kg MD Jesse Deluca Work Phone: [facility] 12-12-2022 15:20-0500 Body height 152.4 cm Aki Garcia Other [employer] Other 12-12-2022 15:20-0500 Body mass index (BMI) [Ratio] 31.64 kg/m2 Aki Jose Other [employer] Other 12-12-2022 15:20-0500 Body weight 73.48 kg Aki Jose Other [employer] Other 09-06-2022 06:44-0500 Body height 149.86 cm MD Jesse Deluca Work Phone: [facility] 09-06-2022 06:44-0500 Body temperature 98.3 [degF] MD Jesse Deluca Work Phone: [facility] 09-06-2022 06:44-0500 Body weight 70 kg MD Jesse Deluca Work Phone: [facility] 09-06-2022 06:44-0500 Diastolic blood pressure 75 mm[Hg] MD Jesse Deluca Work Phone: [facility] 09-06-2022 06:44-0500 Heart rate 74 /min MD Jesse Deluca Work Phone: [facility] 09-06-2022 06:44-0500 Respiratory rate 16 /min MD Jesse Deluca Work Phone: [facility] 09-06-2022 06:44-0500 SaO2% (BldA) [Mass fraction] 99 % MD Jesse Deluca Work Phone: [facility] 09-06-2022 06:44-0500 Systolic blood pressure 156 mm[Hg] MD Jesse Deluca Work Phone: [facility] 06-29-2022 16:20-0400 Body height 152.4 cm Aki Garcia Other [employer] Other 06-29-2022 16:20-0400 Body mass index (BMI) [Ratio] 31.64 kg/m2 Aki Jose Other [employer] Other 06-29-2022 16:20-0400 Body weight 73.48 kg Aik Jose Other [employer] Other 06-15-2022 13:51-0400 Body height 152.4 cm MD Jesse Deluca Work Phone: [facility] 06-15-2022 13:51-0400 Body weight 70.3 kg MD Jesse Deluca Work Phone: [facility] 01-23-2022 11:20-0400 Body height 152.4 cm Marla Woody Other [employer] Other 01-23-2022 11:20-0400 Body mass index (BMI) [Ratio] 31.64 kg/m2 Marla Woody Other [employer] Other 01-23-2022 11:20-0400 Body temperature 97.8 [degF] Marla Woody Other [employer] Other 01-23-2022 11:20-0400 Body weight 73.48 kg Marla Woody Other [employer] Other 01-23-2022 11:20-0400 Respiratory rate 18 /min Marla Woody Other [employer] Other 01-23-2022 11:20-0400 SaO2% (BldA) [Mass fraction] 98 % Marla Woody Other [employer] Other Encounters Encounter Date Encounter Type Care Provider Facility Start: 02-23-2025 End: 02-23-2025 Bamboo flowsheet Jesse Deluca MD Work Phone: [facility] Start: 02-23-2025 End: 02-23-2025 Bamboo flowsheet Jesse Deluca MD Work Phone: [facility] Start: 02-23-2025 End: 02-23-2025 Patient encounter procedure Jesse Deluca MD Work Phone: [facility] Work Phone: Start: 02-23-2025 End: 02-23-2025 Postop follow up visit related to original px Jesse Deluca MD Work Phone: [facility] Comment on above: Medicare annual well ness visit, subsequent (Primary Dx); Prediabetes; Dyslipidemia (CMS/HCC); Benign essential hypertension (CMS/HCC); Encounter for long-term current use of medication; Obesity (BMI 30-39.9) Start: 02-23-2025 End: 02-23-2025 ambulatory JESSE DELUCA Not Available Start: 02-02-2025 End: 02-02-2025 Patient encounter procedure Jesse Deluca MD Work Phone: [facility] [address] [facility] Work Phone: Start: 02-02-2025 End: 02-02-2025 ambulatory Jesse Deluca MD Work Phone: [facility] Work Phone: Start: 01-15-2025 End: 01-15-2025 Patient encounter procedure Jesse Deluca MD Work Phone: [facility] Neurosurgery Work Phone: Start: 01-15-2025 End: 01-15-2025 ambulatory Jesse Deluca MD Work Phone: [facility] Work Phone: Start: 08-25-2024 End: 08-25-2024 Bamboo flowsheet Jesse Deluca MD Work Phone: [facility] Start: 08-25-2024 End: 08-25-2024 Bamboo flowsheet Jesse Deluca MD Work Phone: [facility] Start: 08-25-2024 End: 08-25-2024 Office outpatient visit 25 minutes Jesse Deluca MD Work Phone: [facility] Comment on above: Benign essential hyp ertension (CMS/HCC) (Primary Dx); Lumbar spondylolysis; Peptic ulcer, chronic; Seasonal allergic rhinitis due to pollen; Breast cancer screening by mammogram Start: 08-25-2024 End: 08-25-2024 ambulatory JESSE DELUCA Not Available Start: 07-31-2024 End: 07-31-2024 Bamboo flowsheet Micha Fowler DPM Work Phone: [facility] Start: 07-31-2024 End: 07-31-2024 Bamboo flowsheet Micha Fowler DPM Work Phone: [facility] Start: 07-31-2024 End: 07-31-2024 Office outpatient visit 15 minutes Micha Fowler DPM Work Phone: [facility] Comment on above: 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); Peripheral neuritis of right foot; Pain in right foot; Plantar fasciitis of right foot; Difficulty walking Start: 07-31-2024 End: 07-31-2024 ambulatory MICHA FOWLER Not Available Start: 07-10-2024 End: 07-10-2024 Bamboo flowsheet Micha Fowler DPM Work Phone: [facility] Start: 07-10-2024 End: 07-10-2024 Bamboo flowsheet Micha Fowler DPM Work Phone: [facility] Start: 07-10-2024 End: 07-10-2024 Office outpatient new 45 minutes Micha Fowler DPM Work Phone: [facility] Comment on above: 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); Peripheral neuritis of right foot; Pain in right foot; Plantar fasciitis of right foot; Difficulty walking Start: 07-10-2024 End: 07-10-2024 ambulatory MICHA FOWLER Not Available Start: 01-17-2024 End: 01-17-2024 ambulatory MD Jesse Deluca Work Phone: [facility] Work Phone: Start: 01-17-2024 End: 01-17-2024 Patient encounter procedure MD Jesse Deluca Work Phone: [facility] Neurosurgery Work Phone: Start: 01-07-2024 End: 01-07-2024 ambulatory MD Jesse Deluca Work Phone: [facility] Work Phone: Start: 01-07-2024 End: 01-07-2024 Patient encounter procedure MD Jesse Deluca Work Phone: [facility] [address] [place] Work Phone: Start: 08-09-2023 End: 08-09-2023 ambulatory Aki Garcia Other [facility] [employer] Other Start: 08-09-2023 Office outpatient vi sit 15 minutes Aki Garcia [facility] Neurosurgery Start: 05-09-2023 End: 05-09-2023 ambulatory MD Jesse Deluca Work Phone: [facility] Work Phone: Start: 05-09-2023 End: 05-09-2023 Patient encounter procedure MD Jesse Deluca Work Phone: [facility] [place] Work Phone: Start: 02-08-2023 End: 02-08-2023 Patient encounter procedure MD Jesse Deluca Work Phone: [facility] [place] Work Phone: Start: 02-08-2023 End: 02-08-2023 ambulatory MD Jesse Deluca Work Phone: [facility] Work Phone: Start: 02-08-2023 Postop follow up vis it related to original px Aki Garcia [facility] Start: 12-25-2022 [facility] Aki Garcia [facility] Start: 12-25-2022 End: 12-25-2022 ambulatory Aki Garcia Other [employer] Other Start: 12-25-2022 End: 12-27-2022 Evaluation and management of inpatient MD Jesse Deluca Work Phone: [facility]-[address] [place] [address] Work Phone: Start: 12-12-2022 Office outpatient vi sit 40 minutes Aki Garcia [facility] Start: 12-12-2022 End: 12-12-2022 ambulatory MD Jesse Deluca Work Phone: [facility] Work Phone: Start: 12-12-2022 End: 12-12-2022 Patient encounter procedure MD Jesse Deluca Work Phone: [facility]-Pre-Surgical Testing Work Phone: Start: 09-18-2022 End: 09-19-[address] JESSE DELUCA Facility: Start: 09-08-2022 End: 09-08-2022 ambulatory Aki Garcia Other [employer] Other Start: 09-08-2022 Encounter by herminia cooper Aki Garcia [facility] Start: 09-06-2022 End: 09-06-2022 Evaluation and management of inpatient MD Jesse Deluca Work Phone: [facility]-[address] [place] [address] Start: 09-04-2022 End: 09-04-2022 ambulatory MD Jesse Deluca Work Phone: [facility] Work Phone: Start: 09-04-2022 End: 09-04-2022 Patient encounter procedure MD Jesse Deluca Work Phone: [facility] Start: 08-02-2022 End: 08-03-[address] JESSE DELUCA Facility: Start: 07-31-2022 End: 07-31-2022 Patient encounter procedure MD Jesse Deluca Work Phone: [facility] Start: 07-19-2022 End: 07-19-2022 ambulatory MD Jesse Deluca Work Phone: [facility] Work Phone: Start: 07-19-2022 End: 07-19-2022 Patient encounter procedure MD Jesse Deluca Work Phone: [facility] Start: 07-06-2022 End: 07-06-2022 ambulatory Aki Garcia Other [employer] Other Start: 07-06-2022 Office outpatient vi sit 40 minutes Aki Garcia [facility] Start: 07-06-2022 End: 07-06-2022 Patient encounter procedure MD Jesse Deluca Work Phone: [facility] [place] Start: 07-01-2022 End: 07-01-2022 Patient encounter procedure MD Jesse Deluca Work Phone: [facility] [place] Start: 06-29-2022 End: 06-29-2022 ambulatory Aki Garcia Other [employer] Other Start: 06-29-2022 Office outpatient vi sit 15 minutes A[facility] [facility] Start: 06-15-2022 End: 06-15-2022 Patient encounter procedure MD Jesse Deluca Work Phone: [facility] [place] Start: 01-23-2022 End: 01-23-2022 ambulatory Marla Woody Other [facility] [employer] Other Start: 01-23-2022 Office outpatient vi sit 15 minutes Marla Woody [facility] Start: 01-21-2020 End: 01-21-2020 Subsequent hospital visit by physician Cherelle [facility] Start: 01-19-2020 End: 01-19-2020 Subsequent hospital visit by physician Cherelle [facility] Comment on above: Canceled (COVID-19) Start: 01-05-2020 End: 01-06-2020 Patient encounter procedure [facility] Start: 01-05-2020 End: 01-05-2020 Subsequent hospital visit by physician Cherelle [facility] Comment on above: Arrived Start: 01-02-2020 End: 01-03-2020 Patient encounter procedure [facility] Start: 01-02-2020 End: 01-02-2020 Subsequent hospital visit by physician Cherelle [facility] Comment on above: Arrived Start: 12-29-2019 End: 12-30-2019 Patient encounter procedure [facility] Start: 12-29-2019 End: 12-29-2019 Subsequent hospital visit by physician Steph [facility] Comment on above: Arrived Start: 12-24-2019 End: 12-25-2019 Patient encounter procedure JESSE [facility] Start: 12-24-2019 End: 12-24-2019 Subsequent hospital visit by physician Steph [facility] Comment on above: Arrived Start: 12-22-2019 End: 12-23-2019 Patient encounter procedure [facility] Start: 12-22-2019 End: 12-22-2019 Subsequent hospital visit by physician Steph [facility] Comment on above: Arrived Start: 12-17-2019 End: 12-18-2019 Patient encounter procedure [facility] Start: 12-15-2019 End: 12-16-2019 Patient encounter procedure JESSE [facility] Start: 12-15-2019 End: 12-15-2019 Subsequent hospital visit by physician Cherelle Villeda [facility] Comment on above: Arrived Start: 12-10-2019 End: 12-11-2019 Patient encounter procedure [facility] Start: 12-10-2019 End: 12-10-2019 Subsequent hospital visit by physician Steph Cannon [facility] Physical Therapy Comment on above: Arrived Start: 12-08-2019 End: 12-09-2019 Patient encounter procedure [facility] Start: 12-08-2019 End: 12-08-2019 Subsequent hospital visit by physician Steph Cannon [facility] Physical Therapy Comment on above: Arrived Start: 12-05-2019 End: 12-06-2019 Patient encounter procedure [facility] Start: 12-02-2019 End: 12-03-2019 Patient encounter procedure JESSE [facility] Start: 12-02-2019 End: 12-02-2019 Subsequent hospital visit by physician Steph Cannon [facility] Physical Therapy Comment on above: Arrived Procedures Date Procedure Procedure Detail Performing Clinician Start: 02-02-2025 MRI of head Jesse cordoba MD Work Phone: Start: 01-15-2025 X-ray of lumbar spin e, six views including bending views Jesse Deluca MD Work Phone: Start: 09-01-2024 Mammography Jesse cordoba MD Work Phone: Start: 07-10-2024 Radex foot complete minimum 3 views Micha Fowler DPM Work Phone: Start: 01-07-2024 X-ray of lumbar spin e, four views MD Jesse Deluca Work Phone: Start: 08-29-2023 Mammography iMcha hagen DPM Work Phone: Start: 05-09-2023 X-ray of lumbar [...] of head MD Jesse puckett Work Phone: Start: 03-06-2018 Colonoscopy Micha Good her DPM Work Phone: SARS Antigen (LFIA) MD Jesse Deluca Work Phone: Plan of Treatment Date Care Activity Detail Author Start: 03-06-2028 Screening for malign ant neoplasm of colon [facility] Start: 09-01-2025 Screening for malign ant neoplasm of breast Mammogram [facility] Start: 02-23-2025 End: 02-23-2026 Basic metabolic 1998 panel - Serum or Plasma Basic metabolic panel Lab Routine Benign essential hypertension (CMS/HCC) Expected: 02/23/2025 (Approximate), Expires: 02/23/2026 [facility] Comment on above: Expected: 02/23/2025 (Approximate), Expires: 02/23/2026 Start: 02-23-2025 End: 02-23-2026 CBC W Auto Differential panel - Blood CBC and differential Lab Routine Encounter for long-term current use of medication Expected: 02/23/2025 (Approximate), Expires: 02/23/2026 [facility] Comment on above: Expected: 02/23/2025 (Approximate), Expires: 02/23/2026 Start: 02-23-2025 End: 02-23-2026 Hemoglobin A1c/Hemoglobin.total in Blood Hemoglobin A1c Lab Routine Prediabetes Expected: 02/23/2025 (Approximate), Expires: 02/23/2026 [facility] Work Phone: Comment on above: Expected: 02/23/2025 (Approximate), Expires: 02/23/2026 Start: 02-23-2025 End: 02-23-2026 Hepatic function 2000 panel - Serum or Plasma Hepatic function panel Lab Routine Encounter for long-term current use of medication Expected: 02/23/2025 (Approximate), Expires: 02/23/2026 [facility] Comment on above: Expected: 02/23/2025 (Approximate), Expires: 02/23/2026 Start: 02-23-2025 End: 02-23-2026 Lipid 1996 panel - Serum or Plasma Lipid panel Lab Routine Dyslipidemia (CMS/HCC) Expected: 02/23/2025 (Approximate), Expires: 02/23/2026 [facility] Comment on above: Expected: 02/23/2025 (Approximate), Expires: 02/23/2026 Start: 02-23-2025 End: 02-23-2026 Thyrotropin [Units/volume] in Serum or Plasma TSH Lab Routine Obesity (BMI 30-39.9) Expected: 02/23/2025 (Approximate), Expires: 02/23/2026 [facility] Comment on above: Expected: 02/23/2025 (Approximate), Expires: 02/23/2026 Start: 02-23-2025 End: 02-23-2025 Patient encounter procedure [facility] Comment on above: Arrived Start: 01-15-2025 X-ray of lumbar spin e, six views including bending views XR lumbar spine 6V w bending [facility] Start: 08-29-2024 Screening for malign ant neoplasm of breast Mammogram [facility] Start: 08-25-2024 End: 10-25-2025 MG Breast - bilateral Screening Bilateral screening mammogram Imaging Routine Breast cancer screening by mammogram Expected: 08/25/2024, Expires: 10/25/2025 [facility] Work Phone: Comment on above: Expected: 08/25/2024 , Expires: 10/25/2025 Start: 08-25-2024 End: 08-25-2024 Patient encounter procedure [facility] Comment on above: Arrived Start: 07-31-2024 End: 07-31-2024 Patient encounter procedure [facility] Comment on above: Arrived Start: 07-10-2024 End: 07-10-2024 Patient encounter procedure 07/10/2024 10:45 AM EDT Office Visit [facility] [address] [place] [id number] Micha Fowler DPM [address] [place] [address] Arrived [facility] Comment on above: Arrived Start: 06-22-2024 Influenza vaccination Influenza Vacc ine (#1) [facility] Start: 12-27-2022 [facility] Start: 12-25-2022 Computer Assisted Procedure of [facility] Computer Assisted Procedure of [facility] Start: 12-25-2022 Excision of Lumbar Vertebral Disc, Open Approach Excision of Lumbar Vertebral Disc, Open Approach [facility] Start: 12-25-2022 Fusion of 2 or more Lumbar Vertebral Joints with Interbody Fusion Device, Posterior Approach, Anterior Column, Open Approach Fusion of 2 or more Lumbar Vertebral Joints with Interbody Fusion Device, Posterior Approach, Anterior Column, Open Approach [facility] Start: 12-25-2022 Introduction of Recombinant Bone Morphogenetic Protein into Joints, Open Approach Introduction of Recombinant Bone Morphogenetic Protein into Joints, Open Approach [facility] Start: 09-06-2022 OR Lumbar Laminectom y w/Fix Implants (Not Applicable) OR Lumbar Laminectomy w/Fix Implants (Not Applicable) [facility] Start: 09-06-2022 [facility] Start: 09-06-2022 Sleep disorder assessment [facility] Start: 06-22-2020 Influenza vaccination Flu vacc ine (Season Ended) [facility] [place] Start: 01-21-2020 End: 01-21-2020 Appointment 01/21/2020 Appointment Physical Therapy Cherelle Villeda, PT [facility] Start: 01-19-2020 End: 01-19-2020 Appointment [facility] Start: 01-14-2020 End: 01-14-2020 Appointment 01/14/2020 Appointment Physical Therapy Cherelle Villeda, PT [facility] Start: 01-12-2020 End: 01-12-2020 Appointment [facility] Start: 01-07-2020 End: 01-07-2020 Appointment 01/07/2020 Appointment Physical Therapy Cherelle Villeda, PT [facility] Start: 01-05-2020 End: 01-05-2020 Appointment 01/05/2020 Appointment Physical Therapy Cherelle Villeda, PT [facility] Start: 01-02-2020 End: 01-02-2020 Appointment 01/02/2020 Appointment Physical Therapy Cherelle Villeda, PT [facility] Start: 12-29-2019 End: 12-29-2019 Appointment 12/29/2019 Appointment Physical Therapy Steph Cannon, PT [facility] Start: 12-24-2019 End: 12-24-2019 Appointment 12/24/2019 Appointment Physical Therapy Steph Cannon PT [facility] Start: 12-22-2019 End: 12-22-2019 Appointment 12/22/2019 Appointment Physical Therapy Steph Cannon PT [facility] Start: 12-17-2019 End: 12-17-2019 Appointment 12/17/2019 Appointment Physical Therapy Cherelle Villeda, PT [facility] Start: 12-15-2019 End: 12-15-2019 Appointment 12/15/2019 Appointment Physical Therapy Cherelle Villeda, PT [facility] Start: 12-10-2019 End: 12-10-2019 Appointment 12/10/2019 Appointment Physical Therapy Steph Cannon, PT [facility] Start: 12-08-2019 End: 12-08-2019 Appointment 12/08/2019 Appointment Physical Therapy Steph Cannon, PT [facility] Start: 12-05-2019 End: 12-05-2019 Appointment 12/05/2019 Appointment Physical Therapy Steph Cannon, PT [facility] Start: 11-26-2019 Annual Wellness Visi t (AWV) Annual Wellness Visit (AWV) [employer] Phone: Start: 06-22-2019 Influenza vaccination Flu vaccine (# 1) [facility] Phone: Start: 2017 DEXA (modify frequen cy per FRAX score) DEXA (modify frequency per FRAX score) [facility] Phone: Start: 2017 Pneumococcal 65+ yea rs Vaccine (1 of 1 - PPSV23) Pneumococcal 65+ years Vaccine (1 of 1 - PPSV23) [facility] Phone: Start: 12-22-2007 DEXA (modify frequen cy per FRAX score) DEXA (modify frequency per FRAX score) [facility] [place] Start: 2002 Breast cancer screen Breast cancer s creen [facility] Phone: Start: 2002 Colon cancer screen colonoscopy Colon cancer screen colonoscopy [facility] Phone: Start: 2002 Shingles Vaccine (1 of 2) Shingles Vaccine (1 of 2) [facility] Phone: Start: 1992 Lipid screen Lipid screen [employer] [facility] [employer] Phone: Start: 12-22-1971 DTaP/Tdap/Td vaccine (1 - Tdap) DTaP/Tdap/Td vaccine (1 - Tdap) [facility] [place] Start: 12-22-1963 DTaP/Tdap/Td vaccine (1 - Tdap) DTaP/Tdap/Td vaccine (1 - Tdap) [facility] Phone: Start: 1952 Hepatitis C screen Hepatitis C scree n [facility] Phone: Start: 1950 Medicare Annual Well ness (AWV) Medicare Annual Wellness (AWV) [facility] Start: 1950 Screening for malign ant neoplasm of colon [facility] MR Brain WO contrast [facility] Patient referral [facility] Work Phone: Immunizations Immunization Date Immunization Notes Care Provider Andrew sinclair 08-06-2023 RSV, recombinant, protein subunit RSVpreF, adjuvant reconstitu, 120mcg/0.5mL, PF (Arexvy) Micha Fowler DPM Work Phone: [facility] 07-16-2023 Influenza, High-dose Seasonal, Quadrivalent, Preservative Free Micha Fowler DPM Work Phone: [facility] 07-16-2023 Pfizer Purple Cap SARS-CoV-2 Vaccination Micha Fowler DPM Work Phone: [facility] 07-16-2023 influenza virus vacc ine, unspecified formulation Micha Fowler DPM Work Phone: [facility] 07-20-2022 COVID-19 mRNA Bivale nt Booster (Pfizer) MD Jesse Deluca Work Phone: [facility] 07-17-2022 Fluzone QIV High-Dos e 65YR+ MD Jesse Deluca Work Phone: [facility] 03-06-2022 COVID-19 mRNA, Comir gris (Pfizer) MD Jesse Deluca Work Phone: [facility] 08-05-2021 COVID-19 mRNA, Comir gris (Pfizer) MD Jesse Deluca Work Phone: [facility] 08-05-2021 Influenza, Seasonal, Quadrivalent, Adjuvanted Micha Fowler DPM Work Phone: [facility] 01-11-2021 COVID-19 mRNA, Comir gris (Pfizer) MD Jesse Deluca Work Phone: [facility] 12-20-2020 COVID-19 mRNA, Comir gris (Pfizer) MD Jesse Deluca Work Phone: [facility] 09-13-2020 pneumococcal polysaccharide vaccine, 23 valent Micha Rusher DPM Work Phone: [facility] 06-17-2020 influenza, injectabl e, quadrivalent, preservative free Micha Rusher DPM Work Phone: [facility] 08-11-2019 Influenza, injectabl e, Madin Emily Canine Kidney, preservative free, quadrivalent Micha Rusher DPM Work Phone: [facility] 08-11-2019 pneumococcal conjuga te vaccine, 13 valent Micha Rusher DPM Work Phone: [facility] 07-22-2019 influenza, injectabl e, quadrivalent, preservative free Micha Rusher DPM Work Phone: [facility] 07-22-2019 pneumococcal polysaccharide vaccine, 23 valent Marla Woody Other [facility] 02-13-2019 zoster vaccine recombinant Micha Rusher DPM Work Phone: [facility] 05-13-2018 zoster vaccine recombinant Micha Rusher DPM Work Phone: [facility] 02-11-2018 pneumococcal conjuga te vaccine, 13 valent Micha Rusher DPM Work Phone: [facility] 05-30-2017 influenza, seasonal, injectable, preservative free Micha Rusher DPM Work Phone: [facility] 08-23-2016 influenza, seasonal, injectable, preservative free Micha Rusher DPM Work Phone: [facility] 08-31-2015 influenza, seasonal, injectable, preservative free Micha Rusher DPM Work Phone: [facility] 10-04-2014 influenza, seasonal, injectable, preservative free Micha Rusher DPM Work Phone: [facility] Payers Date Payer Category Payer Medicaid [employer] MEDICARE A DVANTAGE [id number] 2024 Medicare [id number] 2022 Medicare [employer] MEDICARE [employer] [place] [id number] 2022-Present [address] [place] [address] [id number] 2022 Medicare (Managed Care) [facility] [id number] 2015 Medicare UHC MEDICARE UHC M[employer] SOLUTIONS xxxxxxxxx 2015-Present xxxxxxxxx [id number] 2015 Medicare [id number] 1959 Medicare [id number] 1952 Unknown [id number] 2.16.840.1.192531.3.579.2. 173 1952 Unknown [id number] 2.16.840.1.758382.3.579.2. 173 1952 Unknown [id number] 2.16.840.1.720971.3.579.2. 173 1952 Unknown [id number] 2.16.840.1.588906.3.579.2. 173 1952 Unknown [id number] 2.16.840.1.261874.3.579.2. 173 1952 Unknown [id number] 2.16.840.1.793097.3.579.2. 173 1952 Unknown [id number] 2.16.840.1.877045.3.579.2. 173 1952 Unknown [id number] 2.16.840.1.966612.3.579.2. 173 1952 Unknown [id number] 2.16.840.1.897598.3.579.2. 173 1952 Unknown [id number] 2.16.840.1.066114.3.579.2. 173 1952 Unknown [id number] 2.16.840.1.075401.3.579.2. 173 1952 Unknown [id number] 2.16.840.1.570991.3.579.2. 593 1952 Unknown [id number] 2.16.840.1.329747.3.579.2. 593 1952 Unknown [id number] 2.16.840.1.718486.3.579.2. 1259 1952 Unknown [id number] 2.16.840.1.774602.3.579.2. 1259 1952 Unknown [id number] 2.16.840.1.110971.3.579.2. 1259 1952 Unknown [id number] 2.16.840.1.757926.3.579.2. 1259 1952 Unknown [id number] 2.16.840.1.165689.3.579.2. 1259 Medicare Medicare [id number] Self-pay Self Pay [id number] Unknown David BC/BS [id number] Unknown MMO [id number] Social History Date Type Detail Facility Tobacco smoking stat us TNIS Unknown if ever smoked [employer] Work Phone: Start: 1950 Sex Assigned At Not on file M [employer] Phone: Start: 02-25-2024 End: 02-23-2025 Sex Assigned At [facility] Start: 1950 Sex Assigned At Female F [facility] Start: 07-31-2022 End: 02-25-2024 Tobacco smoking status NHIS Never smoked tobacco (finding) [facility] Start: 02-25-2024 Tobacco use and exposure Smoke less tobacco non-user [facility] Start: 07-31-2024 End: 02-23-2025 Alcoholic beverage intake Lifetime non-drinker (finding) [facility] Start: 02-25-2024 End: 02-23-2025 History of Social function [facility] Do you belong to any clubs or organizations such as cheondoism groups, unions, fraternal or athletic groups, or school groups? No [facility] Are you now , , , , never or living with a partner? [facility] How often to you hav e a drink containing alcohol? Never [facility] How many standard dr inks containing alcohol do you have on a typical day? Patient does not drink [facility] Do you feel stress - tense, restless, nervous, or anxious, or unable to sleep at night because your mind is troubled all the time - these days [OSQ] Only a little [facility] (I/We) worried wheth er (my/our) food would run out before (I/we) got money to buy more. Never true [facility] Start: 01-15-2025 End: 02-03-2025 Sex Female (finding) [facility] Medical Equipment Procedure Code Equipment Code Equipment Origin al Text Equipment Identifier Dates Spinal fusion gr aft kit [id number] FDA Start: 12-25-2022 Bone-screw inter nal spinal fixation system, non-sterile [id number] FDA Start: 12-25-2022 Bone-screw inter nal spinal fixation system, non-sterile [id number] FDA Start: 12-25-2022 Bone-screw inter nal spinal fixation system, non-sterile [id number] FDA Start: 12-25-2022 Bone-screw inter nal spinal fixation system, non-sterile [id number] FDA Start: 12-25-2022 Polymeric spinal fusion cage, non-sterile [id number] FDA Start: 12-25-2022 Polymeric spinal fusion cage, non-sterile ()[id number] FDA Start: 12-25-2022 Bone-screw inter nal spinal fixation system, non-sterile [id number] FDA Start: 12-25-2022 Goals Date Patient Goal Desired Activity /State Functional Status Date Assessment Result Facility 02-23-2025 Patient Health [facility] ionnaire 2 item (PHQ-2) [Reported] [facility] 12-27-2022 Functional status Patient at Baseline [facility] Work Phone: 09-06-2022 Functional status Patient at Baseline [facility] Work Phone: [facility] Mental Status Date Assessment Result Facility 12-27-2022 Cognitive function Cognitive Sta tus Patient at Baseline [facility] Work Phone: 09-06-2022 Cognitive function Cognitive Sta tus Patient at Baseline [facility] Work Phone: Clinical Notes 01-23-2022 to 02-23-2025 Jesse Deluca MD - 02/23/2025 11:03 AM Ponce Deluca MD - 02/23/2025 10:00 AM EDT Note Date & Type Note Facility 02-23-2025 History of Presen t illness Narrative Associated Problem(s): Medicare annual wellness visit, subsequent Due for labs. Discussed proper diet and regular aerobic exercise. Need aerobic exercise 5-6 days a week for 30 minutes at a time. Smaller portions and limit total calories. Colonoscopy after age 45. Tetanus every 10 years. Advised not to smoke. Discussed daily Aspirin therapy. Images from the original note were not included. Subjective Patient ID: Rima Alves is a 74 y.o. female who presents for Medicare Annual Wellness Visit Subsequent (wellness). Presents for medicare annual wellness visit. Patient feels well today. Weight down 5 pounds since last visit. Tries to walk and stay active around house. Tries to watch diet and eat healthy. Increased fruits and vegetables. Smaller portions and limits snacking. Tries to limit total daily calories. Due for labs. Review of Systems Respiratory: Negative for cough, shortness of breath and wheezing. Cardiovascular: Negative for chest pain and palpitations. Gastrointestinal: Negative for abdominal pain, diarrhea, nausea and vomiting. Genitourinary: Negative for dysuria. Objective Physical Exam Constitutional: General: She is not in acute distress. Appearance: Normal appearance. HENT: Head: Normocephalic. Right Ear: Tympanic membrane normal. Left Ear: Tympanic membrane normal. Eyes: Extraocular Movements: Extraocular movements intact. Pupils: Pupils are equal, round, and reactive to light. Cardiovascular: Rate and Rhythm: Normal rate and regular rhythm. Heart sounds: No murmur heard. No friction rub. No gallop. Pulmonary: Effort: Pulmonary effort is normal. Breath sounds: Normal breath sounds. No wheezing, rhonchi or rales. Abdominal: General: Bowel sounds are normal. There is no distension. Palpations: Abdomen is soft. Tenderness: There is no abdominal tenderness. There is no guarding or rebound. Musculoskeletal: General: No swelling or tenderness. Cervical back: Neck supple. Right lower leg: No edema. Left lower leg: No edema. Skin: Findings: No erythema or rash. Neurological: General: No focal deficit present. Mental Status: She is alert and oriented to person, place, and time. Cranial Nerves: No cranial nerve deficit. Motor: No weakness. Gait: Gait normal. Assessment/Plan Problem List Items Addressed This Visit Benign essential hypertension (CMS/HCC) Relevant Orders Basic metabolic panel Dyslipidemia (CMS/HCC) Relevant Orders Lipid panel Prediabetes Relevant Orders Hemoglobin A1c Encounter for long-term current use of medication Relevant Orders CBC and differential Hepatic function panel Obesity (BMI 30-39.9) Relevant Orders TSH Medicare annual wellness visit, subsequent - Primary Due for labs. Discussed proper diet and regular aerobic exercise. Need aerobic exercise 5-6 days a week for 30 minutes at a time. Smaller portions and limit total calories. Colonoscopy after age 45. Tetanus every 10 years. Advised not to smoke. Discussed daily Aspirin therapy. documented in this encounter [facility] 01-15-2025 Evaluation note Diagnosis Onset Date Resolution Meningioma acute January 15 2:03pm Spondylolisthesis, lumbar region acute January 15, 2025 2:03pm [facility] Work Phone: 1(236) 220-574311-04-2024 History of Present illness Narrative* Jesse Deluca MD - 08/25/2024 10:54 AM ESTAssociated Problem(s): Seasonal allergic rhinitis due to pollen Symptoms controlled with OTC and continue. * Jesse Deluca MD - 08/25/2024 10:54 AM ESTAssociated Problem(s): Peptic ulcer, chronic Symptoms controlled with omeprazole and continue. * Jesse Deluca MD - 08/25/2024 10:54 AM ESTAssociated Problem(s): Lumbar spondylolysis Continued pain but tolerable. Use mobic PRN. Increase activity and walk regularly. * Jesse Deluca MD - 08/25/2024 10:54 AM ESTAssociated Problem(s): Benign essential hypertension (CMS/HCC) BP controlled and monitor PRN. * Jesse Deluca MD - 08/25/2024 10:00 AM EST Images from the original note were not included. Subjective Patient ID: Rima Alves is a 73 y.o. female who presents for Follow-up (6 m). Follow up HTN, back pain, GERD, and allergies. Patient doing well today. Checking BP PRN and typically controlled. BP normal today. Taking medication daily and tolerating without side effects. Back pain stable. Still performing home PT exercises. Trying to stay active and walking more. Mild pain inlow back and across top hips. Occasional radiation into bilateral gluteal region and down both legs. Using mobic PRN and helps. GERD controlled with omeprazole. Denies epigastric pain or burning and not waking up with symptoms. Allergies controlled with OTC. No congestion or rhinorrhea. No LOPEZ or sinus pressure. Ears not plugged or popping. Review of Systems Respiratory: Negative for cough, shortness of breath and wheezing. Cardiovascular: Negative for chest pain and palpitations. Gastrointestinal: Negative for abdominal pain, diarrhea, nausea and vomiting. Genitourinary: Negative for dysuria. Objective Physical Exam Constitutional: General: She is not in acute distress. Appearance: Normal appearance. HENT: Head: Normocephalic. Right Ear: Tympanic membrane normal. Left Ear: Tympanic membrane normal. Eyes: Extraocular Movements: Extraocular movements intact. Pupils: Pupils are equal, round, and reactive to light. Cardiovascular: Rate and Rhythm: Normal rate and regular rhythm. Heart sounds: No murmur heard. No friction rub. No gallop. Pulmonary: Effort: Pulmonary effort is normal. Breath sounds: Normal breath sounds. No wheezing, rhonchi or rales. Abdominal: General: Bowel sounds are normal. There is no distension. Palpations: Abdomen is soft. Tenderness: There is no abdominal tenderness. There is no guarding or rebound. Musculoskeletal: Cervical back: Neck supple. Right lower leg: No edema. Left lower leg: No edema. Neurological: Mental Status: She is alert. Assessment/Plan Problem List Items Addressed This Visit Lumbar spondylolysis Continued pain but tolerable. Use mobic PRN. Increase activity and walk regularly. Benign essential hypertension (CMS/HCC) - Primary BP controlled and monitor PRN. Peptic ulcer, chronic Symptoms controlled with omeprazole and continue. Seasonal allergic rhinitis due to pollen Symptoms controlled with OTC and continue. Other Visit Diagnoses Breast cancer screening by mammogram Relevant Orders Bilateral screening mammogram documented in this encounterSaint [facility] [id number] History of Present illness Narrative* Micha Fowler DPM - 07/31/2024 10:45 AM EDT Images from the original note were not included. Subjective Patient ID: Rima Alves is a 73 y.o. 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 Patient completed Prednisone. Met padding has helped. At least 50% better. Some improvement. SS: 6.5-7 ). HPI Follow-up assessment: Early's entrapment neuritis right foot. Patient reports about 50 percent relief/improvement from initial visit. Completed prednisone therapy without adverse effects. Tolerance to ADLs and walking activity continues to improve. Medications Current Outpatient Medications: atorvastatin (Lipitor) 80 MG tablet, Take 1 tablet by mouth at bedtime, Disp: , Rfl: lisinopril 10 MG tablet, Take 1 tablet (10 mg) by mouth Daily, Disp: 90 tablet, Rfl: 0 meloxicam (Mobic) 7.5 MG tablet, TAKE 1 TABLET BY MOUTH EVERY DAY, Disp: 30 tablet, Rfl: 5 omeprazole (PriLOSEC) [address] capsule, TAKE 1 CAPSULE BY MOUTH EVERY DAY, Disp: 90 capsule, Rfl: 1 predniSONE (Deltasone) 10 MG tablet, 1 tablet twice daily x 7 days; followed by 1 tablet daily as directed until complete, Disp: 21 tablet, Rfl: 0 Allergies Patient has no known allergies. Past Surgical History Past Surgical History: Procedure Laterality Date SECTION, LOW TRANSVERSE CHOLECYSTECTOMY HYSTERECTOMY LAMINECTOMY AND MICRODISCECTOMY LUMBAR SPINE LAPAROSCOPIC HYSTERECTOMY SPINE SURGERY Family History No family history on file. Objective General assessment: Alert and oriented. Pleasant disposition. Independently ambulatory. Wearing Carranza athletic shoes. Vascular: DP 2/4 bilateral. PT 2/4 bilateral. CFT brisk all digits. Gradient temperature: Warm-warm bilateral. Unremarkable for ankle edema. Neurologic: Tactile and light touch sensation intact. Negative Tinel's along the tarsal canal. Dermatologic: Skin turgor is good. Unremarkable for eczema or dermatitis. Web space areas are clean, dry, non-inflamed. Toenail pathology: Dystrophic, mycotic multiple digits. Orthopedic: Range of motion: Demonstrates functional ankle, subtalar, 1st MTP joint range of motion. Lesion pattern: No forefoot or digital discrete keratotic lesions are noted. Focused exam right foot: Moderate residual tenderness 2nd interspace; positive Mercedes's click without positive Tinel sign. Minimal tenderness across the central MTP joints and 3rd interspace. Metatarsal shafts non-tender. Unremarkable for swelling, warmth or discoloration of the forefoot. Mild HAV d eformity, flexible and reducible to rectus position; with mild contracture of the 2nd MTP joint. Plantar fascial structures non-tender. Radiology: 3 views right foot: Weight-bearing: DP, oblique, lateral: 07/10/2024: Unremarkable for acute osseous or joint pathology. Unremarkable for fracture or stress fracture changes. Central MTP joints intact without DJD or AVN. Metatarsal parabola consistent with structurally elongated 2nd metatarsal. HAV deformity consistent with clinical findings. Assessment/Plan Symptomatic Early's entrapment neuritis second interspace right foot. Non-insertional plantar fasciitis right foot. Chronic, stable HAV deformity right foot. Sciatica by history. Lumbar radiculopathy? Lumbar 3-4 -5 facet fusion with lumbar laminectomy (December of 2022) Plan: Review of clinical and x-ray findings, etiology and contributing/aggravating factors, response to date, treatment strategy, rationale and objectives. Lebeau agreement for 2nd prednisone taper course. Continue central metatarsal pad modification of right Carranza insole; patient noting. Discussed Powerstep orthoses for consideration. Procedure: This note was created with the assistance of a speech recognition program. While intending to generate a timely document that accurately reflects the content of the visit, no guarantee can be provided that every grammatical or spelling mistake has been or will be identified or corrected. Thank you for your understanding. Micha Fowler DPM documented in this encounterSaint [facility] [id number] Instructions* Patient Instructions* Micha Fowler DPM - 07/31/2024 10:45 AM EDT As noted documented in this encounterSaint John[facility] [id number] History of Present illness Narrative* Micha Fowler DPM - 07/10/2024 10:45 AM EDT Images from the original note were not included. Subjective Patient ID: Rima Alves is a 73 y.o. 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 Pt reelates ball in middle of foot shooting out pain. Started around february/March. Pain wakes her up at night, no specific aggravating factors. SS: 6.5-7 ). HPI Initial patient encounter and assessment. Accompanied by her spouse. Chief complaint: Right foot pain. Insidious onset without known injury or trauma. Denies pop or snap sensation. Gradually progressive symptoms over the past 3 or 4 months or so. Describes pain and dysesthesias of the right forefoot; as well as symptoms along the plantar in-step area; both gradually progressiveimpacting ADLs and her ability to walk comfortably. First such episode of this nature. Denies any associated swelling or discoloration. There has been no specific treatment to date. Left foot is symptom free. Medications Current Outpatient Medications: atorvastatin (Lipitor) 80 MG tablet, Take 1 tablet by mouth at bedtime, Disp: , Rfl: lisinopril 10 MG tablet, Take 1 tablet (10 mg) by mouth Daily, Disp: 90 tablet, Rfl: 0 meloxicam (Mobic) 7.5 MG tablet, TAKE 1 TABLET BY MOUTH EVERY DAY, Disp: 30 tablet, Rfl: 5 omeprazole (PriLOSEC) [address] capsule, TAKE 1 CAPSULE BY MOUTH EVERY DAY, Disp: 90 capsule, Rfl: 1 Allergies Patient has no known allergies. Past Surgical History Past Surgical History: Procedure Laterality Date SECTION, LOW TRANSVERSE CHOLECYSTECTOMY HYSTERECTOMY LAMINECTOMY AND MICRODISCECTOMY LUMBAR SPINE LAPAROSCOPIC HYSTERECTOMY SPINE SURGERY Family History No family history on file. Objective General assessment: Alert and oriented. Pleasant disposition. Independently ambulatory. Wearing Carranza athletic shoes. Vascular: DP 2/4 bilateral. PT 2/4 bilateral. CFT brisk all digits. Gradient temperature: Warm-warm bilateral. Unremarkable for ankle edema. Neurologic: Tactile and light touch sensation intact. Negative Tinel's along the tarsal canal. Dermatologic: Skin turgor is good. Unremarkable for eczema or dermatitis. Web space areas are clean, dry, non-inflamed. Toenail pathology: Dystrophic, mycotic multiple digits. Orthopedic: Range of motion: Demonstrates functional ankle, subtalar, 1st MTP joint range of motion. Lesion pattern: No forefoot or digital discrete keratotic lesions are noted. Focused exam right foot: Sharp point tenderness 2nd interspace; positive Mercedes's click without positive Tinel sign. Minimal tenderness across the central MTP joints and 3rd interspace. Metatarsal shafts non-tender. Unremarkable for swelling, warmth or discoloration of the forefoot. Mild HAV deformity, flexible and reducible to rectus position; with mild contracture of the 2nd MTP joint. Also demonstrates diffuse tenderness through the non-insertional plantar fascial structures right foot, without palpable defect or nodular formation. Insertional site non-tender.. Radiology: 3 views right foot: Weight-bearing: DP, oblique, lateral: 07/10/2024: Unremarkable for acute osseous or joint pathology. Unremarkable for fracture or stress fracture changes. Central MTP joints intact without DJD or AVN. Metatarsal parabola consistent with structurally elongated 2nd metatarsal. HAV deformity consistent with clinical findings. Assessment/Plan Symptomatic Early's entrapment neuritis second interspace right foot. Non-insertional plantar fasciitis right foot. Chronic, stable HAV deformity right foot. Sciatica by history. Lumbar radiculopathy? Lumbar 3-4 -5 facet fusion with lumbar laminectomy (December of 2022) Plan: Review of clinical and x-ray findings, differential diagnosis, etiology and contributing/aggravating factors, treatment strategy, rationale and objectives. Prednisone taper dose. Central metatarsal pad modification of right Carranza insole; patient noting favorable position and comfort upon leaving the clinic. Discussed Powerstep orthoses for consideration. Procedure: This note was created with the assistance of a speech recognition program. While intending to generate a timely document that accurately reflects the content of the visit, no guarantee can be provided that every grammatical or spelling mistake has been or will be identified or corrected. Thank you for your understanding. Micha Fowler DPM documented in this [facility]09-19-2024 Instructions* Patient Instructions* Micha Fowler DPM - 07/10/2024 10:45 AM EDT As noted documented in this [facility]10-19-2023 Evaluation note* Encounter Date Diagnosis Assessment Notes Treatment Notes Treatment Clinical Notes Jul, Spondylolisthesis, lumbar region (ICD-10 - M43.16) This [...] History of lumbar fusion (ICD-10 - Z98.1) [employer] Other 04-20-2023 Evaluation note* Encounter Date Diagnosis [...] Jan, Right lumbar radiculopathy (ICD-10 - M54.16) [employer] Other 03-07-2023 Progress note Author Aki Garcia [facility] December 26, 2022 7:34am Note Date/Time December 26, 2022 7:34 am [facility] [address] [place] [address] Neurosurgery Progress Note Signed Patient: Rima Alves MR#: [id number] : 1950 Acct:[id number] Age/Sex: 72 / F Adm Date: 3 Loc: 4N Room: 2O9556-6 Type: ADM IN Attending Dr: Aki Garcia [...] signed by MD Aki Garcia> 12/26/22 0734 [facility] Work Phone: 1(263) 486-365102-21-2023 Evaluation note* Encounter Date Diagnosis Assessment Notes [...] Asymptomatic age-related postmenopausal state (ICD-10 - Z78.0) [employer] Other 09-15-2022 Evaluation note* Encounter Date Diagnosis [...] Asymptomatic age-related postmenopausal state (ICD-10 - Z78.0) [employer] Other 09-08-2022 Evaluation note* Encounter Date Diagnosis [...] probably 2 years with a new MRI. [employer] Other 04-04-2022 Evaluation note* Encounter Date Diagnosis [...] for fever/discomfort, cool mist humidifier. May use [place] as needed for cough, do not take any other OTCs while using [place]. May use albuterol inhaler as needed. 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- Primary Peripheral neuritis of right foot Pain in right foot Pain in soft tissues of limb Plantar fasciitis of right foot Difficulty walking Difficulty in walking [facility]* Diagnosis Benign essential hypertension (CMS/HCC)- Primary Essential hypertension, benign Lumbar spondylolysis Lumbosacral spondylosis without myelopathy Peptic ulcer, chronic Chronic peptic ulcer, unspecified site, without mention of hemorrhage, perforation, or obstruction Seasonal allergic rhinitis due to pollen Dyslipidemia (CMS/HCC) Other and unspecified hyperlipidemia Prediabetes Other abnormal glucose Obesity (BMI 30-39.9) Encounter for long-term current use of medication Benign essential hypertension (CMS/HCC)- Primary Essential hypertension, benign Lumbar spondylolysis Lumbosacral spondylosis without myelopathy Peptic ulcer, chronic Chronic peptic ulcer, unspecified site, without mention of hemorrhage, perforation, or obstruction Seasonal allergic rhinitis due to pollen Breast cancer screening by mammogram [facility]* Diagnosis 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- Primary Peripheral neuritis of right foot Pain in right foot Pain in soft tissues of limb Plantar fasciitis of right foot Difficulty walking Difficulty in walking [facility]* Diagnosis Onset Date Resolution Status Admit Date Spondylolisthesis, lumbar region acu te January 15, 2025 2:03pm Trochanteric bursitis, right hip acu te January 15, 2025 2:03pm [facility] Work Phone: Evaluation note* Diagnosis Benign essential hypertension (CMS/HCC)- Primary Essential hypertension, benign Lumbar spondylolysis Lumbosacral spondylosis without myelopathy Peptic ulcer, chronic Chronic peptic ulcer, unspecified site, without mention of hemorrhage, perforation, or obstruction Seasonal allergic rhinitis due to pollen Dyslipidemia (CMS/HCC) Other and unspecified hyperlipidemia Prediabetes Other abnormal glucose Obesity (BMI 30-39.9) Encounter for long-term current use of medication Benign essential hypertension (CMS/HCC)- Primary Essential hypertension, benign Lumbar spondylolysis Lumbosacral spondylosis without myelopathy Peptic ulcer, chronic Chronic peptic ulcer, unspecified site, without mention of hemorrhage, perforation, or obstruction Seasonal allergic rhinitis due to pollen Breast cancer screening by mammogram Medicare annual wellness visit, subsequent- Primary Prediabetes Other abnormal glucose Dyslipidemia (CMS/HCC) Other and unspecified hyperlipidemia Benign essential hypertension (CMS/HCC) Essential hypertension, benign Encounter for long-term current use of medication Obesity (BMI 30-39.9) [facility] Healthcare[facility] general Narrative - Reported* Type Description Date Medical History Arthritis Medical History prediabetic Medical History hyperlipidemia Surgical History Procedure: section;Dise ase: 1980 Surgical History Procedure:Cholecystectomy;Disea se: 2010 Surgical History L knee scope DAP 04/30/13 Hospitalization History surgeries [employer] Other History general Narrative - Reported* Type Description Date Medical History Arthritis Medical History prediabetic Medical History hyperlipidemia Surgical History Procedure: section;Dise ase: 1980 Surgical History Procedure:Cholecystectomy;Disea se: 2010 Surgical History L knee scope DAP 04/30/13 Surgical History PLIF 2022 Hospitalization History surgeries Hospitalization History see above [employer] Other Hospital Discharge instructions Additional Instructions Please follow up with your primary care provider to address your low potassium level.[facility] Work Phone: Hospital Discharge instructions Additional Instructions [...] it does not do not use the [facility]one[facility] Work Phone: Progress note Author Valerio Charles [facility] September 06, 2022 7:35am Note Date/Time September 06, 2022 7:35am [facility] [address] [place] [address] Anesthesia Progress Note Signed Patient: Rima Alves MR#: [id number] : 1950 Acct:[id number] Age/Sex: 71 / F Adm Date: 2 Loc: Room: 1S0245-2 Type: ADM IN Attending Dr: Aki Garcia [...] signed by Valerio Charles DO> 09/06/22 0735 [facility] Work Phone: History of Present Illness * Steph Cannon, PT - 12/08/2019 2:45 PM EST [facility] Outpatient Physical Therapy Daily Note Patient: Rima Alves : 1950 CSN #: [id number] Referring Practitioner: Jesse Deluca MD Referral Date : 07/31/19 Date: 12/08/2019 Diagnosis: Back pain Treatment Diagnosis: low back pain Onset Date: 07/22/19 PT Insurance Information: [facility] [employer] Total # of Visits Approved: 18 [...] blue band; 12/08 abd press standing with hungarian ball Exercise 2: bike 8 mins Exercise [...] Patient Education Patient Education: ab press on hungarian ball for HEP Pt verbalized/demonstrated good understanding: [...] []Not met []Met []Partially met []Not met [employer] Goals - Time Frame for senior care goals : 6 weeks intermediate teacher goal 1: Pt to report independence and compliance with home program. []Met []Partially met []Not met intermediate teacher goal 2: Pt to report central low back pain no greater than 2/10 with ADL's and housekeeping tasks. []Met []Partially met []Not met senior care goal 3: Pt to demonstrate 4 to 4+/5 strength bilateral hip ER and equal hip IR ROM to assist in proper gait and functional activities. []Met []Partially met []Not met senior care goal 4: Pt to have little to no pain with central PA mobs to lumbar spine and palpation to lumbar paraspinals. []Met []Partially met []Not met intermediate teacher goal 5: Pt to maintain full plank position for 30 seconds indicating improved core strength and lumbar stability. []Met []Partially met []Not met Minutes Tracking: Time In: 1451 Time Out: 1557 Minutes: 66 Timed Code Treatment Minutes: 56 Minutes Steph Cannon PT, DPT, CMPT Date: 12/08/2019 documented in this encounter* Steph Cannon PT - 12/10/2019 1:15 PM EST [facility] Outpatient Physical Therapy Daily Note Patient: Rima Alves : 1950 CSN #: [id number] Referring Practitioner: Jesse Deluca MD Referral Date : 07/31/19 Date: 12/10/2019 Diagnosis: Back pain Treatment Diagnosis: low back pain Onset Date: 07/22/19 PT Insurance Information: [facility] [employer] Total # of Visits Approved: 18 [...] []Not met []Met []Partially met []Not met Shelter Goals - Time Frame for senior care goals : 6 weeks senior care goal 1: Pt to report independence and compliance with home program. []Met []Partially met []Not met senior care goal 2: Pt to report central low back pain no greater than 2/10 with ADL's and housekeeping tasks. []Met []Partially met []Not met senior care goal 3: Pt to demonstrate 4 to 4+/5 strength bilateral hip ER and equal hip IR ROM to assist in proper gait and functional activities. []Met []Partially met []Not met senior care goal 4: Pt to have little to no pain with central PA mobs to lumbar spine and palpation to lumbar paraspinals. []Met []Partially met []Not met senior care goal 5: Pt to maintain full plank position for 30 seconds indicating improved core strength and lumbar stability. []Met []Partially met []Not met Minutes Tracking: Time In: 1312 Time Out: 1428 Minutes: 76 Timed Code Treatment Minutes: 59 Minutes Steph Cannon PT, DPT, CMPT Date: 12/10/2019 documented in this encounter* Cherelle Villeda, PT - 12/15/2019 8:30 AM EST [facility] Outpatient Physical Therapy Daily Note Patient: Rimagenny Alves : 1950 [facility] #: [id number] Referring Practitioner: Jesse Deluca MD Referral Date : 07/31/19 Date: 12/15/2019 Diagnosis: Back pain Treatment Diagnosis: low back pain Onset Date: 07/22/19 PT Insurance Information: [facility] [employer] Total # of Visits Approved: 18 Per Physician Order Total # of Visits to Date: 5 No Show: 0 Canceled Appointment: 0 Pre-Treatment Pain: 2/10 Subjective: Pt states she was not too [...] []Not met []Met []Partially met []Not met Shelter Goals - Time Frame for senior care goals : 6 weeks intermediate teacher goal 1: Pt to report independence and compliance with home program. []Met []Partially met []Not met intermediate teacher goal 2: Pt to report central low back pain no greater than 2/10 with ADL's and housekeeping tasks. []Met []Partially met []Not met senior care goal 3: Pt to demonstrate 4 to 4+/5 strength bilateral hip ER and equal hip IR ROM to assist in proper gait and functional activities. []Met []Partially met []Not met senior care goal 4: Pt to have little to no pain with central PA mobs to lumbar spine and palpation to lumbar paraspinals. []Met []Partially met []Not met intermediate teacher goal 5: Pt to maintain full plank position for 30 seconds indicating improved core strength and lumbar stability. []Met []Partially met []Not met Minutes Tracking: Time In: 831 Time Out: 934 Minutes: 63 Timed Code Treatment Minutes: 60 Minutes Cherelle Villeda PT, DPT Date: 12/15/2019 documented in this encounter* Steph Cannon, PT - 12/22/2019 10:30 AM EST [facility] Outpatient Physical Therapy Daily Note Patient: Rima Alves : 1950 CSN #: [id number] Referring Practitioner: Jesse Deluca MD Referral Date : 07/31/19 Date: 12/22/2019 Diagnosis: Back pain Treatment Diagnosis: low back pain Onset Date: 07/22/19 PT Insurance Information: [facility] [employer] Total # of Visits Approved: 18 [...] []Not met []Met []Partially met []Not met Shelter Goals - Time Frame for intermediate teacher goals : 6 weeks intermediate teacher goal 1: Pt to report independence and compliance with home program. []Met []Partially met []Not met senior care goal 2: Pt to report central low back pain no greater than 2/10 with ADL's and housekeeping tasks. []Met []Partially met []Not met intermediate teacher goal 3: Pt to demonstrate 4 to 4+/5 strength bilateral hip ER and equal hip IR ROM to assist in proper gait and functional activities. []Met []Partially met []Not met intermediate teacher goal 4: Pt to have little to no pain with central PA mobs to lumbar spine and palpation to lumbar paraspinals. []Met []Partially met []Not met intermediate teacher goal 5: Pt to maintain full plank position for 30 seconds indicating improved core strength and lumbar stability. []Met []Partially met []Not met Minutes Tracking: Time In: 1026 Time Out: 1131 Minutes: 65 Timed Code Treatment Minutes: 48 Minutes Steph Cannon PT, DPT, CMPT Date: 12/22/2019 documented in this encounter* Steph Cannon, PT - 12/29/2019 11:45 AM EDT [facility] Outpatient Physical Therapy Daily Note Patient: Rima Alves : 1950 CSN #: [id number] Referring Practitioner: Jesse Deluca MD Referral Date : 07/31/19 Date: 12/29/2019 Diagnosis: Back pain Treatment Diagnosis: low back pain Onset Date: 07/22/19 PT Insurance Information: [facility] [employer] Total # of Visits Approved: 18 [...] []Not met []Met []Partially met []Not met Shelter Goals - Time Frame for intermediate teacher goals : 6 weeks senior care goal 1: Pt to report independence and compliance with home program. []Met []Partially met []Not met intermediate teacher goal 2: Pt to report central low back pain no greater than 2/10 with ADL's and housekeeping tasks. []Met []Partially met []Not met intermediate teacher goal 3: Pt to demonstrate 4 to 4+/5 strength bilateral hip ER and equal hip IR ROM to assist in proper gait and functional activities. []Met []Partially met []Not met intermediate teacher goal 4: Pt to have little to no pain with central PA mobs to lumbar spine and palpation to lumbar paraspinals. []Met []Partially met []Not met senior care goal 5: Pt to maintain full plank position for 30 seconds indicating improved core strength and lumbar stability. []Met []Partially met []Not met Minutes Tracking: Time In: 1148 Time Out: 1251 Minutes: 63 Timed Code Treatment Minutes: 50 Minutes Steph Cannon PT, DPT, CMPT Date: 12/29/2019 documented in this encounter* Cherelle Villeda, PT - 01/05/2020 9:45 AM EDT [facility] Outpatient Physical Therapy Daily Note Patient: Rima Alves : 1950 CSN #: [id number] Referring Practitioner: Jesse Deluca MD Referral Date : 07/31/19 Date: 01/05/2020 Diagnosis: Back pain Treatment Diagnosis: low back pain Onset Date: 07/22/19 PT Insurance Information: [facility] [employer] Total # of Visits Approved: 18 Per Physician Order Total # of Visits to Date: 11 No Show: 0 Canceled Appointment: 0 Pre-Treatment Pain: 5/10 Subjective: Pt states she cleaned her floor over the weekend and played [employer] Glass[employer] yesterday, so is more sore today, with [...] []Not met []Met []Partially met []Not met Cloth Winder Goals - Time Frame for senior care goals : 6 weeks intermediate teacher goal 1: Pt to report independence and compliance with home program. []Met []Partially met []Not met intermediate teacher goal 2: Pt to report central low back pain no greater than 2/10 with ADL's and housekeeping tasks. []Met []Partially met []Not met intermediate teacher goal 3: Pt to demonstrate 4 to 4+/5 strength bilateral hip ER and equal hip IR ROM to assist in proper gait and functional activities. []Met []Partially met []Not met senior care goal 4: Pt to have little to no pain with central PA mobs to lumbar spine and palpation to lumbar paraspinals. []Met []Partially met []Not met senior care goal 5: Pt to maintain full plank position for 30 seconds indicating improved core strength and lumbar stability. []Met []Partially met []Not met Minutes Tracking: Time In: 50 Time Out: 1052 Minutes: 62 Timed Code Treatment Minutes: 60 Minutes Cherelle Villeda PT, DPT Date: 01/05/2020 documented in this encounter* Cherelle Villeda, PT - 01/02/2020 3:30 PM EDT [facility] Outpatient Physical Therapy Daily Note Patient: Rima Alves : 1950 CSN #: [id number] Referring Practitioner: Jesse Deluca MD Referral Date : 07/31/19 Date: 01/02/2020 Diagnosis: Back pain Treatment Diagnosis: low back pain Onset Date: 07/22/19 PT Insurance Information: [facility] [employer] Total # of Visits Approved: 18 [...] []Not met []Met []Partially met []Not met Cloth Winder Goals - intermediate teacher goal 1: Pt to report independence and compliance with home program. []Met []Partially met []Not met senior care goal 2: Pt to report central low back pain no greater than 2/10 with ADL's and housekeeping tasks. []Met []Partially met []Not met intermediate teacher goal 3: Pt to demonstrate 4 to 4+/5 strength bilateral hip ER and equal hip IR ROM to assist in proper gait and functional activities. []Met []Partially met []Not met intermediate teacher goal 4: Pt to have little to no pain with central PA mobs to lumbar spine and palpation to lumbar paraspinals. []Met []Partially met []Not met intermediate teacher goal 5: Pt to maintain full plank position for 30 seconds indicating improved core strength and lumbar stability. []Met []Partially met []Not met Minutes Tracking: Time In: 1530 Time Out: 1620 Minutes: 50 Timed Code Treatment Minutes: 45 Minutes Cherelle Villeda PT, DPT Date: 01/02/2020 documented in this encounter* Tammy Valle - 01/19/2020 9:15 AM EDT [facility] Inpatient/Observation/Outpatient Rehabilitation Date: 01/19/2020 Patient Name: Rima Alves [] Inpatient Acute/Observation [x] Outpatient : 1950 [] Pt no showed for scheduled appointment [] Pt refused/declined therapy at this time due to: [x] Pt cancelled due to: [] No Reason Given [] Sick/ill [x] Other: Pt canceled dur to COVID-19. 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 Advance Directive Response Recorded Date/ Time Advance [...] Un known Diabetes mellitus Unknown Hypertension Unknown Relationship Condition Age at Onset Recorded Date/T dax mother Malignant neoplasm of ovary Unknown Morbid obesity Unknown Unknown Chronic obstructive pulmonary disease Unk nown Current smoker Unknown father Pulmonary emphysema Unknown sister Posttraumatic stress disorder Unknown Schizophrenia Unknown Family history of thyroid disease Unknown sister Idiopathic pulmonary fibrosis Unknown father Family history of emphysema Unknown grandparent Unknown Malignant neoplasm Unknown mother Chronic obstructive pulmonary disease Unk nown Diabetes mellitus Unknown Hypertension Unknown Hospital Course * Cherelle Villeda, PT - 01/21/2020 9:45 AM EDT [facility] Outpatient Physical Therapy Discharge Summary Patient: Rima Alves : 1950 CSN #: [id number] Referring physician: No admitting provider for patient encounter. Referring Practitioner: Jesse Deluca MD Diagnosis: Back pain Date Treatment Initiated: 12/02/2019 Date of Last Treatment: 01/05/2020 PT Visit Information Onset Date: 07/22/19 PT Insurance Information: [facility] [employer] Total # of Visits Approved: 18 [...] for improved lumbar stability. - met senior care goals Time Frame for senior care goals : 6 weeks senior care goal 1: Pt to report independence and compliance with home program. intermediate teacher goal 2: Pt to report central low back pain no greater than 2/10 with ADL's and housekeeping tasks. intermediate teacher goal 3: Pt to demonstrate 4 to 4+/5 strength bilateral hip ER and equal hip IR ROM to assist in proper gait and functional activities. intermediate teacher goal 4: Pt to have little to no pain with central PA mobs to lumbar spine and palpation to lumbar paraspinals. senior care goal 5: Pt to maintain full plank [...] m43.16 1 YR PO LUMBAR FUSION W/X-RAY Chief Complaint Admit Date m43.16 January 15, 2025 1:2 6pm yrly lumbar fusion w/x-ray January 15, 025 2:03pm Reason for Visit Admit Date Spondylolisthesis, lumbar region December 212024 2:03pm Trochanteric bursitis, right hip December 212024 2:03pm Reason for Visit Admit Date Meningioma January 15, 2025 2:0 3pm Spondylolisthesis, lumbar region December 212024 2:03pm Chief Complaint Admit Date m43.16 January 15, 2025 1:2 6pm yrly lumbar fusion w/x-ray January 15 025 2:03pm D32.9 February 02, 2025 12: 40pm Additional Source Comments INFORMATION SOURCE (unrecogn ized section and content) DATE CREATED AUTHOR 01/21/2020 [facility] DATE CREATED AUTHOR AUTHOR'S ORGANIZ ATION 09/23/2022 [facility] DATE CREATED AUTHOR AUTHOR'S ORGANIZ ATION 02/03/2025 [facility] DATE CREATED AUTHOR AUTHOR'S ORGANIZ ATION 02/26/2025 [facility] EPIC REASON FOR VISIT (unrecogniz ed section and content) Reason Comments 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 Patient completed Prednisone. Met padding has helped. At least 50% better. Some improvement. 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 Pt reelates ball in middle of foot shooting out pain. Started around february/March. Pain wakes her up at night, no specific aggravating factors. SS: 6.5-7 Reason Comments Medicare Annual Wellness Visit Subsequen t wellness Care Teams (unrecognized sec tion and content) Team Status: Active Member Role Status Dates Jesse Deluca MD Primary Care Provider Active Team Status: Inactive Member Role Status Dates Jesse Deluca MD Primary Care Provider Active S tart: January 15, 2025 End: January 15, 2025 Aki Garcia MD Attending Provider Active Star t: January 15, 2025 End: January 15, 2025 Team Status: Active Member Role Status Dates Jesse Deluca MD Primary Care Provider Active S tart: January 15, 2025 Aki Garcia MD Attending Provider Active Star t: January 15, 2025 Team Status: Inactive Member Role Status Dates Jesse Deluca MD Primary Care Provider, Attending Pro vider Active Team Status: Inactive Member Role Status Dates Jesse Deluca MD Primary Care Provider Active Aki Garcia MD Attending Provider Active Team Status: Inactive Member Role [...] January 17, 2024 End: January 17, 2024 Multimedia Instructional Designer Relationship Specialty Start Date End Date Jesse Deluca MD [address] [place] [address] PCP - General Family Medicine 02/25/24 Multimedia Instructional Designer Relationship Specialty Start Date End Date Jesse Deluca MD [address] [place] [address] PCP - General Family Medicine 02/25/24 Multimedia Instructional Designer Relationship Specialty Start Date End Date Jesse Deluca MD [address] [place] [phone] PCP - General Family Medicine 02/25/24 Multimedia Instructional Designer Relationship Specialty Start Date End Date Jesse Deluca MD [address] [place] [phone] PCP - [facility] 02/25/24 Multimedia Instructional Designer Relationship Specialty Start Date End Date Jesse Deluca MD [address] [place] [phone] PCP - [facility] 02/25/24 Multimedia Instructional Designer Relationship Specialty Start Date End Date Jesse Deluca MD [address] [place] [address] PCP - [facility] 02/25/24 Team Status: Inactive Member Role Status Dates Jesse Deluca MD Primary Care Provider Active S tart: February 02, 2025 End: February 02, 2025 Aki Garcia MD Attending Provider Active Star t: February 02, 2025 End: February 02, 2025 Multimedia Instructional Designer Relationship Specialty Start Date End Date Jesse Deluca MD [address] [place] [phone] PCP - [facility] 02/25/24 Multimedia Instructional Designer Relationship Specialty Start Date End Date Jesse Deluca MD [address] [place] [phone] PCP - [facility] 02/25/24 Goals (unrecognized section and content) Goals may [...] BE BASED ON THE PRIMARY CLINICAL RECORDS. [employer] [facility]. provides no warranty or guarantee of the accuracy or completeness of information in this document.
[2025-03-02 10:35] LABS: Estimated Average Glucose 123 mg/dL; Glycohemoglobin A1C 5.9 % (4.5-6.2)
[2025-03-02 10:41] LABS: Alanine Aminotransferase 26 U/L (14-59); Albumin Globulin Ratio 1.1; Albumin Level 3.5 g/dL (3.4-5.0); Alkaline Phosphatase 107 U/L (46-116); Anion Gap 10.9; Aspartate Amino Transferase 17 U/L (15-37); BUN Creatinine Ratio 12.3; Bilirubin Direct 0.1 mg/dL (0.0-0.2); Bilirubin Total 0.4 mg/dL (0.2-1.0); Calcium 9.3 mg/dL (8.5-10.1); Carbon Dioxide 29.5 mmol/L (21.0-32.0); Chloride 105 mmol/L (98-107); Chol HDL Ratio 4.2; Cholesterol 167 mg/dL (<=200); Estimated GFR (African America 57 (>=60 mL/min/1.73m^2); Estimated GFR (Non-African Ame 47 (>=60 mL/min/1.73m^2); Globulin 3.3 g/dL; Glucose 99 mg/dL (74-106); HDL Cholesterol 40 mg/dL (40-60); LDL Cholesterol Calculated 99.8 mg/dL; Potassium 4.4 mmol/L (3.5-5.1); Sodium 141 mmol/L (136-145); Thyroid Stimulating Hormone 1.967 uIU/mL (0.358-3.740); Total Protein 6.8 g/dL (6.4-8.2); Triglycerides 136 mg/dL (<=150); VLDL CHOLESTEROL 27.2 mg/dL
== END 2025-03-02 09:47 | disposition home or self-care (01) ==
PROVIDERS: PCP Family Medicine; Visit Provider Family Medicine
DX: R73.03 Prediabetes (principal); I10 Essential (primary) hypertension; Z79.899 Other long term (current) drug therapy; E78.5 Hyperlipidemia, unspecified; E66.9 Obesity, unspecified
CPT/HCPCS: 36415; 80048; 80061; 80076; 83036; 84443; 85025

== ENCOUNTER 2025-05-12 13:16 | Outpatient (OUT) | payer MEDICARE, SELFPAY ==
[2025-05-12 13:34] LABS: Glucose Urine UA NEGATIVE (NEGATIVE)
== END 2025-05-12 13:17 | disposition home or self-care (01) ==
LOC: LAB 13:18
PROVIDERS: PCP Family Medicine; Visit Provider Family Medicine
DX: R30.0 Dysuria (principal)
CPT/HCPCS: 81003; 87086

== ENCOUNTER 2025-10-12 13:46 | Outpatient (OUT) | payer MEDICARE, SELFPAY ==
--- OUTSIDE RECORDS SUMMARY | 2025-10-12 13:49 | XMS_ITS | Clinical Summary ---
Author Organization [facility] Address [address] [place] [address] Care Team Providers Care Supply Assistant Name Role Phone Jesse Still MD Primary Care Provider [phone] Jesse Still MD Unavailable Allergies No known active allergies Medications MedicationSigDispense QuantityRefillsLast FilledStart DateEnd DateStatus atorvastatin (Lipitor) 80 MG tablet Indications:Hyperlipidemia, unspecifiedTAKE 1 TABLET BY MOUTH EVERYDAY AT BEDTIME 90 tablet 4Active omeprazole (PriLOSEC) [address] capsule Indications:Chronic peptic ulcer, site unspecified, without hemorrhage or perforation,Chronic peptic ulcerTAKE 1 CAPSULE BY MOUTH EVERY DAY 90 capsule 5Active polyethylene glycol, PEG, 3350 (Miralax) 17 g packet Take 17 g by mouth 1 (one) timeActive lisinopril 10 MG tablet Indications:Benign essential hypertensionTAKE 1 TABLET (10 MG) BY MOUTH DAILY. 90 tablet 5Active meloxicam (Mobic) 7.5 MG tablet Indications:Lumbar spondylolysisTAKE 1 TABLET BY MOUTH EVERY DAY 30 tablet 5Active Active Problems ProblemNoted DateDiagnosed DateMedicare annual wellness visit, subsequent 02/23/2025 Assessment & Plan (02/23/2025 11:03 AM EDT): Due for labs. Discussed proper diet and regular aerobic exercise. Need aerobic exercise 5-6 days a week for 30 minutes at a time. Smaller portions and limit total calories. Colonoscopy after age 45. Tetanus every 10 years. Advised not to smoke. Discussed daily Aspirin therapy. Dtekolkswdhp92/06/3693Ifwbbkgndyz45/06/9602Rainoerdn11/06/2024Osteopenia of spine02/25/2024eptic ulcer, hfdbxzv7002/25/2024 Assessment & Plan (08/25/2024 10:54 AM EST): Symptoms controlled with omeprazole and continue. Assessment & Plan (02/25/2024 11:06 AM EDT): Symptoms controlled with omeprazole and continue. Kkwsytybmdm35/06/2024rimary osteoarthritis of left knee02/25/2024Vaginal jccwclx4502/25/2024Encounter for long-term current use of rumevkkjqk44/06/2024 Obesity (BMI 30-39.9)02/25/2024Seasonal allergic rhinitis due to pollen 02/25/2024 Assessment & Plan (08/25/2024 10:54 AM EST): Symptoms controlled with OTC and continue. Assessment & Plan (02/25/2024 11:06 AM EDT): Symptoms controlled with medication and continue. Benign essential qdkxmsoajdiq07/23/2024 Assessment & Plan (08/25/2024 10:54 AM EST): BP controlled and monitor PRN. Assessment & Plan (02/25/2024 11:06 AM EDT): BP controlled and monitor PRN. Lumbar /04/2023 Assessment & Plan (08/25/2024 10:54 AM EST): Continued pain but tolerable. Use mobic PRN. Increase activity and walk regularly. Assessment & Plan (02/25/2024 11:06 AM EDT): Continued pain but tolerable. Use mobic PRN. Increase activity and walk regularly. Resolved Problems ProblemNoted DateDiagnosed DateResolved DateChronic left shoulder pain02/25/2024 08/25/2024Other spondylosis with radiculopathy, lumbar kqkstu7302/25/2024 02/25/2024 Immunizations ImmunizationAdministration DatesNext DueInfluenza, High-dose Seasonal, Quadrivalent, Preservative Free07/16/2023,07/17/2022Influenza, Seasonal, Quadrivalent, Sbxjosyvjp11/15/2021Influenza, injectable, MDCK, preservative free, otalepwbuity68/21/2019Influenza, injectable, quadrivalent, preservative free06/17/2020,07/22/2019Influenza, seasonal, injectable, preservative free 05/30/2017,08/23/2016,08/31/2015,10/04/2014Pfizer Purple Cap SARS-CoV-2 Tdeexrmlcic60/25/2023,2Pneumococcal Conjugate PCV 131, 02/11/2018Pneumococcal Polysaccharide ACQB206211/13/2019,07/22/2019RSV, recombinant, protein subunit RSVpreF, adjuvant reconstitu, 120mcg/0.5mL, PF (Arexvy)08/06/2023Zoster, Grunwvuvywb33/25/2019,05/13/2018 Social History Tobacco UseTypesPacks/DayYears UsedDateSmoking Tobacco: NeverSmokeless Tobacco: Never Tobacco Cessation:Counseling Given: Not Answered Alcohol UseStandard Drinks/WeekCommentsNever0 (1 standard drink = 0.6 oz pure alcohol)Social Connection and Isolation PanelAnswerDate RecordedIn a typical week, how many times do you talk on the phone with family, friends, or neighbors?Three times a week02/25/2024How often do you get together with friends or relatives?Twice a week02/25/2024How often do you attend sabianist or christian services?Never4Do you belong to any clubs or organizations such as sabianist groups, unions, fraternal or athletic groups, or school groups?No 02/25/2024How often do you attend meetings of the clubs or organizations you belong to?Never02/25/2024re you , , , , never , or living with a partner?Yvrthrt2302/25/2024UDIT-CAnswerDate RecordedQ1: How often do you have a drink containing alcohol?Never02/25/2024Q2: How many drinks containing alcohol do you have on a typical day when you are drinking? Patient does not drink02/25/2024Q3: How often do you have six or more drinks on one occasion?Never02/25/2024Overall Financial Resource Strain (CARDIA)AnswerDate RecordedHow hard is it for you to pay for the very basics like food, housing, medical care, and heating?Not hard at all02/25/2024HQ-2AnswerDate Recorded Patient Health Questionnaire-[address] [place] of Occupational Health - Occupational Stress QuestionnaireAnswerDate RecordedDo you feel stress - tense, restless, nervous, or anxious, or unable to sleep at night because your mind is troubled all the time - these days?Only a crbhvb0702/25/2024Exercise Vital SignAnswerDate RecordedOn average, how many days per week do you engage in moderate to strenuous exercise (like a brisk walk)?3 days02/25/2024On average, how many minutes do you engage in exercise at this level?30 min02/25/2024Hunger Vital SignAnswerDate RecordedWithin the past 12 months, you worried that your food would run out before you got the money to buymore.Never true02/25/2024 Within the past 12 months, the food you bought just didn't last and you didn't have money to get more.Never true02/25/2024RAPARE - TransportationAnswerDate RecordedIn the past 12 months, has lack of transportation kept you from medical appointments or from getting medications?No02/25/2024In the past 12 months, has lack of transportation kept you from meetings, work, or from getting things needed for daily living?No02/25/2024Housing Stability Vital SignAnswerDate RecordedIn the last 12 months, was there a time when you were not able to pay the mortgage or rent on time?No02/25/2024In the last 12 months, how many places have you lived?In the last 12 months, was there a time when you did not have a steady place to sleep or slept in [place] (including now)?No 4CommentsUnknownSex and Gender InformationValueDate RecordedSex Assigned at BirthNot on fileLegal LsnOxpbil58/15/2023 6:50 PM EDTGender Identity Not on fileSexual OrientationNot on file Last Filed Vital Signs Vital SignReadingTime TakenCommentsBlood Iysvpono745/62002/23/2025 10:12 AM EDT Jqvjm441702/23/2025 10:12 AM IABLszepiacpgp42.6 ??C (97.8 ??F)02/23/2025 10:12 AM EDTRespiratory Zanw710502/23/2025 10:12 AM EDTOxygen Kzguwotucr69%02/23/2025 10:12 AM EDTInhaled Oxygen Concentration--Wyaews55.8 kg (156 lb)02/23/2025 10:12 AM KEVDfzuzi150.9 cm (4' 11 )02/23/2025 10:12 AM EDTBody Mass Index31.51002/23/2025 10:12 AM EDT Plan of Treatment Health MaintenanceDue DateLast DoneCommentsCT Wnhfhnccnzov34/02/1951FIT-DNA 1950FIT1950FOBT1950Zrcbudkhwehop60/02/1951OVID-19 Vaccine ( season), 07/16/2023, 07/16/2023, Additional history kvuqozZcbogajxl17, 08/29/2023Medicare Annual Wellness (AWV)/4011Ztsxyqunusd07Colorectal Cancer Xwpbpnqyv99/16/2028Pneumococcal Vaccine: 65+ XvwuyDfbngojkz78/23/2020, 08/11/2019, 07/22/2019, Additional history existsInfluenza VaccineCompleted 06/16/2025, 09/16/2024, 07/16/2023, Additional history exists Procedures Procedure NamePriorityDate/TimeAssociated DiagnosisCommentsMM TOMOSYNTHESIS SCREENING BI09/01/2024 11:47 AM EST from Last 3 Months or Most Recently Relevant to Health Maintenance Results * MM TOMOSYNTHESIS SCREENING BI (09/01/2024 11:47 AM EST)Anatomical Region LateralityModalityOtherSpecimen (Source)Anatomical Location / Laterality Collection Method / VolumeCollection TimeReceived Time09/01/2024 11:47 AM EST Narrative 09/01/2024 11:48 AM EST [facility] ?[address] ? [place] [address] ? Mammography Report ? Signed ? Patient: RIMA ALVES J ?MR#: [id number] ?? : 1950 ?Acct:[id number] ?? Age/Sex: 73 / F ?ADM Date: 09/01/24 ?? Loc: MAMMO ? Attending Dr: Jesse Still M.D. ? Ordering Physician: Jesse Still M.D. ?Results: ? Date of Service: 09/01/24 ?Follow Up: ? Procedure(s): MM tomosynthesis screening BI ?? Accession Number(s): [id number] ? cc: Jesse Still M.D. ? Patient Name: ? RIMA LYNN ? MR#: [id number] ? : 1950 ? Exam Date: 09/01/2024 ?? Ordering Doctor: DR Jesse Still . ? RADIOLOGY REPORT ? PROCEDURE: ? MM TOMOSYNTHESIS SCREENING BI ? COMPARISON: ? [facility] MAMM SCREEN 3D [place] CAD, 08/10/2021. ??MM TOMOSYNTHESIS ?? SCREENING BI, 08/29/2023. ? INDICATIONS: ? SCREENING ? Calculator Name ? NCI Breast Cancer Risk Assessment Tool ?? 5 Year Breast Cancer Risk ? 2.10% ?? Lifetime Breast Cancer Risk ? 5.90% ?? Personal Breast Cancer ?No ?? Personal Ovarian Cancer ? No ?? Treatments ? None ?? Family Cancers ? None ? LOCATION: ? [facility] ? BREAST COMPOSITION: ? There are scattered areas of fibroglandular density. ? FINDINGS: ? DIAGNOSTIC CATEGORY 2--BENIGN FINDING. NO CHANGE FROM COMPARISON. ? Scattered benign-appearing nodules are present. ??Scattered benign-appearing ?? calcifications are present. ??Scattered benign-appearing lymph nodes are ?? present. ? RIGHT BREAST: ??No significant suspicious finding. ??Linear scar marker ? LEFT BREAST: ??No significant suspicious finding. ? RECOMMENDATIONS: ? ROUTINE MAMMOGRAM AND CLINICAL EVALUATION IN 12 MONTHS. ? PLEASE NOTE: ??A NORMAL MAMMOGRAM DOES NOT EXCLUDE THE POSSIBILITY OF BREAST ?? CANCER. ??A CLINICALLY SUSPICIOUS PALPABLE LUMP SHOULD BE BIOPSIED. ? Dictated by: Baltazar Castañeda MD on 09/01/2024 at 11:44 ? Approved by: Baltazar Castañeda MD on 09/01/2024 at 11:47 ? Dictated By: ?Baltazar Castañeda M.D. ? Signed By: ?09/01/24 1148 ? DD/ 1147 ? TD/TT: ? X Ray Equipment Mechanic: Procedure Note Radiology, Radiologist, MD - 09/01/2024 [place] [address] Mammography Report Signed Patient: RIMA ALVES JMR#: [id number] : 3Acct:[id number] Age/Sex: 73 / FADM Date: 09/01/24 Loc: MAMMO Attending Dr: Jesse Still M.D. Ordering Physician: Jesse Still M.D.Results: Date of Service: 09/01/24Follow Up: Procedure(s): MM tomosynthesis screening BI Accession Number(s): [id number] cc: Jesse Still M.D. Patient Name: RIMA ALVES MR#: [id number] : 1950 Exam Date: 09/01/2024 Ordering Doctor: DR Jesse Still . RADIOLOGY REPORT PROCEDURE: MM TOMOSYNTHESIS SCREENING BI COMPARISON: [facility] MAMM SCREEN 3D [place] CAD, 08/10/2021. MM TOMOSYNTHESIS SCREENING BI, 08/29/2023. INDICATIONS: SCREENING Calculator Name NCI Breast Cancer Risk Assessment Tool 5 Year Breast Cancer Risk 2.10% Lifetime Breast Cancer Risk 5.90% Personal Breast Cancer No Personal Ovarian Cancer No Treatments None Family Cancers None LOCATION: [facility] BREAST COMPOSITION: There are scattered areas of fibroglandulardensity. FINDINGS: DIAGNOSTIC CATEGORY 2--BENIGN FINDING. NO CHANGE FROM COMPARISON. Scattered benign-appearing nodules are present. Scatteredbenign-appearing calcifications are present. Scattered benign-appearing lymph nodes are present. RIGHT BREAST: No significant suspicious finding. Linear scar marker LEFT BREAST: No significant suspicious finding. RECOMMENDATIONS: ROUTINE MAMMOGRAM AND CLINICAL EVALUATION IN 12 MONTHS. PLEASE NOTE: A NORMAL MAMMOGRAM DOES NOT EXCLUDE THE POSSIBILITY OFBREAST CANCER. A CLINICALLY SUSPICIOUS PALPABLE LUMP SHOULD BE BIOPSIED. Dictated by: Baltazar Castañeda MD on 09/01/2024 at 11:44 Approved by: Baltazar Castañeda MD on 09/01/2024 at 11:47 Dictated By: Baltazar Castañeda M.D. Signed By:09/01/24 1148 DD/ 1147 TD/TT: X Ray Equipment Mechanic: Authorizing ProviderResult TypeResult StatusMar Tessy [facility] Final Result from Last 3 Months or Most Recently Relevant to Health Maintenance Insurance * Guarantor: Rima Alves TypeRelation to PatientDate of BirthPhone Billing AddressPersonal/XmhximIkke25/02/1951 [facility] [place] [address] MemberSubscriberPlan / Payer (Effective 2024-Present)Name:Rima Alves Relation to Subscriber:SelfName:Rima Alves Payer ID:[id number] ([facility]) Type:Not on file Address: [facility] [address] [place] [address] Care Teams Team MemberRelationshipSpecialtyStart DateEnd Date Jesse Still MD PCP - [facility]02/25/24 Jesse Still MD [address] [place] [address] PCP - [facility]05/22/25
--- OUTSIDE RECORDS SUMMARY | 2025-10-12 13:49 | XMS_ITS | Clinical Summary ---
Author Organization [facility] Address [address], [address] [place] [address] Care Team Providers Care Child Care Worker Name Role Phone Jesse Still MD Primary Care Provider + Social History Tobacco UseTypesPacks/DayYears UsedDateSmoking Tobacco: Never Assessed CommentsUnknownSex and Gender InformationValueDate RecordedSex Assigned at Not on fileLegal NrwFhmthw26/10/2013 2:47 PM ESTGender IdentityNot on fileSexual OrientationNot on file Plan of Treatment Not on file Insurance Care Teams Team MemberRelationshipSpecialtyStart DateEnd Date Jesse Still MD [facility]/19
--- OUTSIDE RECORDS SUMMARY | 2025-10-12 13:49 | XMS_ITS | Continuity of Care Document ---
Author Organization [facility] Address [address] [place] [address] Problems Unknown Problems Results Test Value / Unit Interpretation Reference Ran SARS-COV-2 (COVID19), NAAT[[id number]] Collected: 11/02/2020 04:48 PM Specimen Received: 11/04/2020 03:15 AM Source: [facility] SARS-CoV-2 INTERPRETATION [[id number]] Negative See YbveAHPR-UtC-4 RNA NOT DETECTEDNegative results do not preclude SARS-CoV-2 infection and should notbe used as the sole basis for patient management decisions. Negativeresults must be combined with clinical observations, patient history,and epidemiological information. Optimum specimen types and timingfor peak viral levels during infections caused by SARS-CoV-2 have notbeen determined. Collection of multiple specimens or types ofspecimens may be necessary to detect virus. Improper specimencollectionand handling, sequence variability under primers/probes,or organism present below the limit of detec tion may lead to falsenegative results. Positive and negative predictive values oftesting are highly dependent on prevalence. False negative testresults are more likely when prevalence is high.SOURCE [08484-7]NASOPHARYNGEALNote: Methodology is [employer] Real-Time RT-PCR. The expectedresult or reference range is NEGATIVE (Not Detected). For more information regarding COVID-19 testing to include clinicalinformation, methodology detail, intended use, FDA authorization andrecommended fact sheets for patients or healthcare providers, see [employer] Announcement: SARS-CoV-2 (COVID-19) by NAAT at URL below (note,fact sheets are provided by method given in report:[email or web address], see downloadable PDF fact sheet at:[email or web address] SARS-COV-2 (COVID19), NAAT[[id number]]?Collected: 09/20/2020 07:53 PM?Specimen Received: 09/22/2020 04:13 AM?Source: [facility] - [id number] INTERPRETATION [[id number]]Negative See MmvpLHGD-SgB-6 RNA NOT DETECTEDNegative results do not preclude SARS-CoV-2 infection and should notbe used as the sole basis for patient management decisions. Negativeresults must be combined with clinical observations, patient history,and epidemiological information. Optimum specimen types and timingfor peak viral levels during infections caused by SARS-CoV-2 have notbeen determined. Collection of multiple specimens or types ofspecimens may be necessary to detect virus. Improper specimencollectionand handling, sequence variability under primers/probes,or organism present below the limit of detec tion may lead to falsenegative results. Positive and negative predictive values oftesting are highly dependent on prevalence. False negative testresults are more likely when prevalence is high.SOURCE [[id number]]NASOPHARYNGEALNote: Methodology is D[employer] Real-Time RT-PCR. The expected result or reference range is NEGATIVE (Not Detected). For more information regarding COVID-19 testing to include clinicalinformation, methodology detail, intended use, FDA authorization andrecommended fact sheets for patients or healthcare providers, see [employer] Announcement: SARS-CoV-2 (COVID-19) by NAAT at URL below (note,fact sheets are provided by method given in report:[email or web address] Alternatively, see downloadable PDF fact sheet at:[email or web address] Allergies, adverse reactions, alerts No known allergies and adverse reactions Medications No administered medications reported Vital Signs No vital signs reported Social History No smoking Hx information available
--- NOTE | 2025-10-12 14:12 | MM_ITS ---
Patient Name: VIRY BAILEY MR#: [id number] : 1950 Exam Date: 10/12/2025 Ordering Doctor: DR RADHA DELUCA . RADIOLOGY REPORT PROCEDURE: MM TOMOSYNTHESIS SCREENING BI COMPARISON: MM TOMOSYNTHESIS SCREENING BI, 09/01/2024. MM TOMOSYNTHESIS SCREENING BI, 08/29/2023. MG MAMM SCREEN 3D [place] CAD, 08/10/2021. MG MAMM [facility] SCRN W CAD DIG, 07/20/2014. INDICATIONS: Screening Calculator Name NCI Breast Cancer Risk Assessment Tool 5 Year Breast Cancer Risk 2.20% Lifetime Breast Cancer Risk 5.60% Personal Breast Cancer No Personal Ovarian Cancer No Treatments None Family Cancers Mother with cervical cancer at age 50. LOCATION: [facility] BREAST COMPOSITION: There are scattered areas of fibroglandular density. FINDINGS: DIAGNOSTIC CATEGORY 1--NEGATIVE. RIGHT BREAST: No significant suspicious finding. Left breast: No suspicious finding. RECOMMENDATIONS: ROUTINE MAMMOGRAM AND CLINICAL EVALUATION IN 12 MONTHS. Dictated by: Carmelo Martin DO on 10/13/2025 at 10:34 Approved by: Carmelo Martin DO on 10/13/2025 at 10:35
== END 2025-10-12 13:47 | disposition home or self-care (01) ==
LOC: MAMMO 13:46
PROVIDERS: PCP Family Medicine; Visit Provider Family Medicine
DX: Z12.31 Encounter for screening mammogram for malignant neoplasm of breast (principal); Z80.8 Family history of malignant neoplasm of other organs or systems
CPT/HCPCS: 77063; 77067